=== PATIENT | female | born 1950 | race Caucasian/White ===

== ENCOUNTER 2023-01-29 11:00 | Outpatient (RCR) | payer MEDICARE, OTHER, SELFPAY | END 2023-05-29 23:59 | disposition home or self-care (01) | PROVIDERS: PCP Family Medicine; Visit Provider Family Medicine | DX: R35.0 Frequency of micturition (principal); N81.4 Uterovaginal prolapse, unspecified; Z51.89 Encounter for other specified aftercare | CPT/HCPCS: 97110; 97112; 97140; 97162 ==

== ENCOUNTER 2023-10-21 23:00 | Emergency (ER) | payer MEDICARE, OTHER, SELFPAY ==
[2023-10-21 23:09] VITALS: BP 183/104; PULSE 69; RESP 20; O2SAT 94; BMI 39.0
[2023-10-21 23:21] VITALS: TEMP 36.4
--- NOTE | 2023-10-22 00:16 | ED.GENADULT ---
HPI - General Adult General Chief complaint: Hypertension Stated complaint: Irregular heart beat Time Seen by Provider: 10/22/23 00:00 Source: patient Mode of arrival: ambulatory Limitations: no limitations History of Present Illness HPI narrative: 73-year-old female presents the emergency department for evaluation of elevated blood pressure. She reports that her blood pressure was elevated at her physical just a few weeks ago. Her provider told her to check her blood pressure 3 times daily, record these have report back for a blood pressure recheck. She received a phone call requesting that she come back in for that blood pressure recheck. Has not yet scheduled it. She reports that her Fitbit alerted that her heart rate was irregular tonight, the 1st time this has happened. She has not been having any stroke-like symptoms, neurological changes, chest pain, shortness of breath, dizziness or any other physical changes. She checked her blood pressure this evening and noted that it was still elevated, she is planning to travel to [place] in the morning and wanted to make sure that she was ?okay to travel?. She continues to have no physical symptoms whatsoever. She is on antihypertensive therapy with low-dose atenolol and low-dose hydrochlorothiazide. She continues to take these as prescribed. States that her blood pressure has been more elevated for the past year and that this is not a new problem. Denies prior history of coronary artery disease, stents, angiography or stress testing. No history of DVT or PE. Not anticoagulated. No history of arrhythmia, AFib or heart failure. Did not try any other interventions prior to coming to ED. Blood pressure at the time of my evaluation on the monitors is 170s over 80s. Heart rate persistently in the high 60s. Past medical history notable for hypertension, osteoarthritis, hypothyroidism, hyperlipidemia. Home medications are accurate as listed. These were reviewed with her. Nonsmoker. ROS is notable for the elevated blood pressure as stated above, otherwise denies times 12 systems. Related Data Home Medications Medication Instructions Recorded Confirmed atenolol 50 mg tablet 50 mg PO QDAY 05/10/22 10/21/23 fluticasone propionate 50 2 intranasal DAILY 05/10/22 04/13/23 mcg/actuation nasal spray,suspension hydrochlorothiazide 12.5 mg capsule 12.5 mg PO .Daily At 12:00PM 05/10/22 10/21/23 levothyroxine 125 mcg tablet 125 mcg PO .Daily At 7:00AM 05/10/22 04/13/23 lorazepam 0.5 mg tablet 0.5 mg PO .Bedtime as needed PRN 05/10/22 04/13/23 multivitamin 1 tab PO QDAY 05/10/22 04/13/23 potassium chloride 20 mEq 20 meq PO 05/10/22 04/13/23 tablet,extended release(part/cryst) simvastatin 40 mg tablet 40 mg PO QDAY 05/10/22 10/21/23 hydrochlorothiazide 12.5 mg tablet 12.5 mg PO DAILY 10/21/23 10/21/23 meloxicam 7.5 mg tablet 7.5 mg PO BID 10/21/23 10/21/23 omeprazole 20 mg capsule,delayed 20 mg PO DAILY 10/21/23 10/21/23 release oxybutynin chloride 10 mg 10 mg PO DAILY 10/21/23 10/21/23 tablet,extended release 24 hr Allergies Allergy/AdvReac Type Severity Reaction Status Date / Time naproxen Allergy Hives Verified 04/13/23 13:50 morphine AdvReac Vomiting Verified 04/13/23 13:50 PFSH PFSH Surgical History 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) ?Z96.651 - Presence of right artificial knee joint (ICD-10) Social History Smoking Status: Never smoker Exam Const: Vital Signs, click to edit/add: Vital Signs - 24 hr 10/21/23 23:09 10/21/23 23:21 Temperature 97.6 F Pulse Rate [Pulse Oximeter] 69 Respiratory Rate 20 Blood Pressure [Ri ght Upper Arm] 183/104 H Pulse Oximetry 94 Oxygen Delivery Me thod Room Air Documenting provider has reviewed patient's vital signs: yes Common normals: no apparent distress and alert General appearance: cooperative, comfortable and well kempt Orientation/consciousness: Yes awake HENMT: Common normals: normocephalic, moist oral mucous membranes and oropharynx normal Head and scalp: normocephalic Eye: Common normals: conjunctivae normal General eye: normal appearance of both eyes Conjunctiva: conjunctiva(e) normal Neck & C-Spine: General: normal visual inspection Resp: Common normals: normal respiratory effort, no use of accessory muscles and clear to auscultation bilaterally Effort & inspection: able to speak in complete sentences Auscultation: clear to auscultation bilaterally Cardio: Common normals: regular rate, regular rhythm, S1 normal heart sound, S2 normal heart sound and no murmurs Rate: regular rate Rhythm: regular rhythm Heart sounds: S1 normal and S2 normal GI: Common normals: Normal to inspection, nondistended, normoactive bowel sounds present, soft to palpation and no hepatosplenomegaly Palpation: soft and no hepatosplenomegaly Extremity: Other: Trace appearing bilateral dependent edema, equal Neuro: Common normals: moves all extremities and no focal motor deficits Sensorium/orientation: awake and alert Speech: speech normal Psych: Appearance: well kempt Attitude: engaged Attention/concentration: attention grossly intact Memory/cognition: memory grossly intact Insight: insight good Judgement: judgment good Skin: Common normals: no rashes or lesions noted General skin exam: no rashes or lesions noted Course Course ED Course: 73-year-old female with history of hypertension, blood pressure known to be suboptimally controlled over the last several months. Blood pressure elevated at home today with no symptoms of acute coronary syndrome, pulmonary embolism, heart failure, arrhythmia, trauma or other emergency. Pressure has improved here in the emergency department to reasonable levels without treatment. Would like to double check troponin, EKG, basic labs to ensure that increasing her medications is safe to do. This will take about 60-90 minutes, anticipate that she will be able to discharge home with the indicated plan of increasing her atenolol to 100 mg daily and her hydrochlorothiazide to 25 mg daily and following up with her primary care provider next week for recheck of her blood pressure medications in conversation regarding new prescriptions if this is appropriate. May also be a good candidate to switch to an Jose or Arb. May need to lower her meloxicam if the thought is that this could be NSAID induced. Reevaluation(s) Time of Reevaluation #1: 01:05 Reevaluation #1: Labs reviewed. No signs of arrhythmia on monitors. Previously discussed plan at initial interview documented. Patient will discharge home with plan to increase atenolol and hydrochlorothiazide as recommended. Vital Signs Vital signs: Initial Vital Signs Temperature Source Temporal Artery Scan 10/21/23 23:09 Pulse Rate 69 10/21/23 23:09 Respiratory Rate 20 10/21/23 23:09 Blood Pressure 183/104 H 10/21/23 23:09 Blood Pressure Mean 130 H 10/21/23 23:09 Blood Pressure Position Supine 10/21/23 23:09 Pulse Oximetry 94 10/21/23 23:09 Oxygen Delivery Method Room Air 10/21/23 23:09 Vital Signs Pulse Rate 69 10/21/23 23:09 Respiratory Rate 20 10/21/23 23:09 Blood Pressure 183/104 H 10/21/23 23:09 Pulse Oximetry 94 10/21/23 23:09 Oxygen Delivery Method Room Air 10/21/23 23:09 Temperature 97.6 F 10/21/23 23:21 Pulse Rate 69 10/21/23 23:09 Respiratory Rate 20 10/21/23 23:09 Blood Pressure 183/104 H 10/21/23 23:09 Pulse Oximetry 94 10/21/23 23:09 Oxygen Delivery Method Room Air 10/21/23 23:09 Medical Decision Making Lab Data Lab results reviewed: Yes I reviewed the patient's lab results Lab results narrative: Normal, as expected. Labs: Lab Results 10/22/23 Range/Units 00:34 WBC 8.27 (4.50-11.00) K/uL RBC 4.99 (4.00-5.20) m/uL Hgb 15.0 (12.0-16.0) gm/dL Hct 44.9 (33.0-51.0) % MCV 90 (80-100) fL MCH 30 (26-34) pg MCHC 33 (32-36) gm/dL RDW Coeff of Harmeet 12.8 (11.5-15.5) % Plt Count 163 (140-440) K/uL Neut % (Auto) 58.5 (42.0-72.0) % Lymph % (Auto) 32.2 (20-44) % Taney % (Auto) 8.8 (0.0-11.0) % Eos % (Auto) 0.0 (0.0-7.0) % Baso % (Auto) 0.4 (0.0-3.0) % Neut # (Auto) 4.84 (1.7-7.0) K/uL Lymph # (Auto) 2.66 (0.90-2.90) K/uL Taney # (Auto) 0.70 (0.00-0.90) K/UL Eos # (Auto) 0.00 (0.00-0.50) K/uL Baso # (Auto) 0.03 (0.00-0.30) K/uL Abs Immat Gran (auto) 0.01 (0.00-0.30) K/uL Imm/Tot Granulo (auto) 0.1 % Sodium 141 (135-149) mmol/L Potassium 3.8 (3.6-5.1) mmol/L Chloride 106 (96-114) mmol/L Carbon Dioxide 29 (20-32) mmol/L Anion Gap 6 L (7-15) mEq/L BUN 31 H (7-30) mg/dL Creatinine 1.1 (0.5-1.5) mg/dL Estimated Creat Clear 35.49 Estimated GFR 53 ml/min Glucose 99 (60-115) mg/dL Calcium 10.4 (8.4-10.6) mg/dL POC Troponin I 0.01 (0.01-0.04) ng/ml ECG Data Attestation: I personally reviewed and interpreted this ECG as follows: Interpretation: Normal sinus rhythm, rate 68. Normal intervals and axis. No significant ST or T-wave abnormalities. Normal EKG. Discharge Plan Discharge Clinical Impression: Hypertension Patient Disposition: Home w/ Parent or Adult Condition: Improved Instructions: Hypertension (ED) Additional Instructions: As we discussed, there are no signs of abnormal heart rhythm or heart attack here in the emergency department. This is great news. Based on your home monitoring, your recent elevated blood pressure at your physical and your values here today, your high blood pressure is not under appropriate control at this time. Treating high blood pressure is a moving target and often requires a change in therapy over time. Since we have proven that your blood pressure is persistently elevated, I would recommend that you double up on both your atenolol and your hydrochlorothiazide until a follow-up appointment to have your blood pressure rechecked in a week or so. Make sure that you let the nurse know that you have increased those medications, as your provider may need to send higher doses to your pharmacy to reflect the change. They may choose instead to prescribe a different blood pressure medication to add to your regimen. Your provider will know what is best for you in the long run. They may also need to consider stopping your meloxicam or changing to a different medication to treat arthritis. Continue checking your blood pressure at least a couple of times per day. As we discussed, there is not an emergent level with high blood pressure unless you are having physical symptoms like stroke-like symptoms, vision changes, chest pain, severe shortness of breath or other emergent type symptoms. It will take a few days for your blood pressure to improve with the new doses of medications. It is safe for you to travel. You should seek emergency room care if you have any of the worrisome symptoms listed above. Activity Level: No Restrictions Discharge Diet: Regular Prescriptions: No Action atenolol 50 mg tablet 50 mg PO QDAY fluticasone propionate 50 mcg/actuation spray,suspension 2 intranasal DAILY hydrochlorothiazide 12.5 mg capsule 12.5 mg PO .Daily At 12:00PM levothyroxine 125 mcg tablet 125 mcg PO .Daily At 7:00AM lorazepam 0.5 mg tablet 0.5 mg PO .Bedtime as needed PRN potassium chloride 20 mEq tablet,ER particles/crystals 20 meq PO simvastatin 40 mg tablet 40 mg PO QDAY multivitamin Tablet 1 tab PO QDAY oxybutynin chloride 10 mg tablet extended release 24hr 10 mg PO DAILY meloxicam 7.5 mg tablet 7.5 mg PO BID omeprazole 20 mg capsule,delayed release(DR/EC) 20 mg PO DAILY hydrochlorothiazide 12.5 mg tablet 12.5 mg PO DAILY Follow Up/Referrals: Joslyn Turcios MD [Primary Care Provider] - Stand Alone Forms: [employer] Info Instructions
[2023-10-22 00:44] LABS: Basophils Absolute Auto 0.03 K/uL (0.00-0.30); Basophils Percent Auto 0.4 % (0.0-3.0); Hematocrit 44.9 % (33.0-51.0); Immature Granulocytes Abs Auto 0.01 K/uL (0.00-0.30); Immature Granulocytes Pct Auto 0.1 %; Lymphocytes Absolute Auto 2.66 K/uL (0.90-2.90); Lymphocytes Percent Auto 32.2 % (20-44); Mean Corpuscular HGB Conc 33 gm/dL (32-36); Mean Corpuscular Hemoglobin 30 pg (26-34); Mean Corpuscular Volume 90 fL (80-100); Monocytes Percent Auto 8.8 % (0.0-11.0); Neutrophils Absolute Auto 4.84 K/uL (1.7-7.0); Neutrophils Percent Auto 58.5 % (42.0-72.0); Platelet Count* 163 K/uL (140-440); RDW Coefficient of Variation % 12.8 % (11.5-15.5); Red Blood Count 4.99 m/uL (4.00-5.20); White Blood Count* 8.27 K/uL (4.50-11.00)
[2023-10-22 00:51] LABS: Slide Review Reflex No; Troponin, Point-of-Care* 0.01 ng/ml (0.01-0.04)
[2023-10-22 00:56] LABS: Chloride* 106 mmol/L (96-114)
[2023-10-22 00:57] LABS: Potassium* 3.8 mmol/L (3.6-5.1); Sodium* 141 mmol/L (135-149)
[2023-10-22 00:59] LABS: Anion Gap 6 mEq/L (7-15); Carbon Dioxide* 29 mmol/L (20-32); Creatinine* 1.1 mg/dL (0.5-1.5); Est. Creatinine Clearance* 35.49; Estimated Glomerular Filt Rate 53 ml/min
[2023-10-22 01:00] LABS: Blood Urea Nitrogen* 31 mg/dL (7-30); Calcium* 10.4 mg/dL (8.4-10.6); Glucose* 99 mg/dL (60-115)
== END 2023-10-22 01:11 | disposition home or self-care (01) ==
LOC: ED 10-22 00:36
PROVIDERS: Emergency Provider Family Medicine; PCP Family Medicine
DX: I10 Essential (primary) hypertension (principal)
CPT/HCPCS: 36415; 80048; 84484; 85025; 93005; 99284

== ENCOUNTER 2023-12-12 12:24 | Inpatient (IN) | payer MEDICARE, OTHER, SELFPAY ==
[2023-12-12] VITALS (42 sets, daily range): BP systolic 100–164; BP diastolic 57–135; PULSE 51–133; RESP 13–22; TEMP 35.8–36.4; O2SAT 89–100; BMI 38.2; BMI 37.4
--- NOTE | 2023-12-12 12:58 | CRLHL7_ITS ---
For Patients: As a result of the Century Cures Act, medical imaging exams and procedure reports are released immediately into your electronic medical record. You may view this report before your referring provider. If you have questions, please contact your health care provider. Indication: Atrial fibrillation Comparison: None available. Technique: Single AP view chest Findings: There is hyperinflation and chronic interstitial change. There are mildly increased interstitial markings likely representing pulmonary vascular congestion. The cardiomediastinal silhouette is within normal limits. The bony thorax is grossly intact. Impression: Mild interstitial prominence likely representing minimal pulmonary vascular congestion. Dictated by Chris Motta MD @ 12/12/2023 2:11:46 PM (Electronically Signed)
--- NOTE | 2023-12-12 13:17 | ED_ITS ---
HPI - General Adult General Date Seen: 12/12/23 <Alice Mackenzie MD - Last Filed: 12/12/23 16:40> Chief complaint: Arrhythmia/Palpitations <Alice Mackenzie MD - Last Filed: 12/12/23 16:40> Stated complaint: Afib <Alice Mackenzie MD - Last Filed: 12/12/23 16:40> Time Seen by Provider: 12/12/23 12:46 <Alice Mackenzie MD - Last Filed: 12/12/23 16:40> Source: patient, RN notes reviewed and old records reviewed <Alice Mackenzie MD - Last Filed: 12/12/23 16:40> Mode of arrival: ambulatory <Alice Mackenzie MD - Last Filed: 12/12/23 16:40> Limitations: no limitations <Alice Mackenzie MD - Last Filed: 12/12/23 16:40> History of Present Illness HPI narrative: Patient is a 73-year-old woman who had gone to clinic today for evaluation of her knee which she injured in a fall couple of days ago. She says while she was sitting at clinic she developed palpitations and a sense of fluttering in her chest, they checked an EKG and found that she was in rapid AFib. This was at about 11:00 a.m.. She does have a history of 2 prior episodes of similar palpitations which resolved spontaneously. She is otherwise asymptomatic, does not note shortness of breath, chest pain, lightheadedness, fainting or other complaints. No recent illness, vomiting, diarrhea, black or bloody stools, fevers etcetera. She is not anticoagulated. <lAice Mackenzie MD - Last Filed: 12/12/23 16:40> Related Data Home medications: Home Medications ?Medication ?Instructions ?Recorded ?Confirmed fluticasone propionate 50 2 spray intranasal DAILY 05/10/22 12/12/23 mcg/actuation nasal spray,suspension levothyroxine 125 mcg tablet 125 mcg PO DAILY@07 05/10/22 12/12/23 lorazepam 0.5 mg tablet 0.5 mg PO HS PRN 05/10/22 12/12/23 multivitamin 1 tab PO DAILY 05/10/22 12/12/23 omeprazole 20 mg capsule,delayed 20 mg PO DAILY 10/21/23 12/12/23 release oxybutynin chloride 10 mg 10 mg PO DAILY 10/21/23 12/12/23 tablet,extended release 24 hr amlodipine 2.5 mg tablet 2.5 mg PO DAILY 12/12/23 12/12/23 simvastatin 20 mg tablet 20 mg PO QPM 12/12/23 12/12/23 Previous Rx's ?Medication ?Instructions ?Recorded apixaban 5 mg tablet (Eliquis) 5 mg PO BID #60 tabs 12/13/23 colchicine 0.6 mg tablet 0.6 mg PO BID PRN #60 tabs 12/13/23 metoprolol succinate 50 mg 50 mg PO DAILY #30 tabs 12/13/23 tablet,extended release 24 hr melatonin 5 mg tablet 5 mg PO HS PRN sleep #30 tabs 12/14/23 metoprolol tartrate 25 mg tablet 12.5 mg (1/2 x 25 mg) PO DAILY PRN 12/14/23 #30 tabs <Alice Mackenzie MD - Last Filed: 12/12/23 16:40> Allergies/adverse reactions: Allergies Allergy/AdvReac Type Severity Reaction Status Date / Time naproxen Allergy Hives Verified 04/13/23 13:50 morphine AdvReac Vomiting Verified 04/13/23 13:50 <Alice Mackenzie MD - Last Filed: 12/12/23 16:40> Review of Systems Status of ROS: Reports: 10 or more systems reviewed and unremarkable except as noted in History and below <Alice Mackenzie MD - Last Filed: 12/12/23 16:40> [facility] Medical History: Medical History Depression ?F32.A - Depression, unspecified (ICD-10) Pseudogout ?M11.20 - Other chondrocalcinosis, unspecified site (ICD-10) Generalized anxiety disorder ?F41.1 - Generalized anxiety disorder (ICD-10) History of breast cancer ?Z85.3 - Personal history of malignant neoplasm of breast (ICD-10) Hyperlipidemia ?E78.5 - Hyperlipidemia, unspecified (ICD-10) Hypothyroidism ?E03.9 - Hypothyroidism, unspecified (ICD-10) <Alice Mackenzie MD - Last Filed: 12/12/23 16:40> Surgical History: Surgical History Status post bilateral mastectomy ?Z90.13 - Acquired absence of bilateral breasts and nipples (ICD-10) 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) ?Z96.651 - Presence of right artificial knee joint (ICD-10) <Alice Mackenzie MD - Last Filed: 12/12/23 16:40> Social History: Social History What is your current living situation?: I presently have a place to live Problems where you live: no known problems Problems where you live details: N/A In the past 12 months, utilities in danger of being shut off: no In past 12 months, lack of transportation kept you from medical appts, meetings, work, or getting things needed for daily living: no In the past 12 mos, have been you worried that your food would run out before you had money to buy more?: never true In the past 12 mos, the food you bought just didn't last and you didn't have money to buy more?: never true Highest level of school completed/degree received: some college, no degree Smoking Status: Never smoker Second hand tobacco smoke exposure: No How often do you have a drink containing alcohol: monthly or less Alcohol type: wine Alcohol type details: pt states 2 glasses of wine a year How many standard drinks containing alcohol do you have on a typical day: 1 or 2 How often do you have six or more drinks on one occasion: Less than monthly AUDIT-C Alcohol total score: 2 Non-prescribed substance use: denies use Caffeine: Yes (couple cans Mtn Dew daily) How often does anyone, including family, friends and others, physically hurt you : never How often does anyone, including family, friends and others, insult or talk down to you: never How often does anyone, including family, friends and others, threaten you with harm: never How often does anyone, including family, friends and others, scream or curse at you: never Gender Identity: female service: No <Alice Mackenzie MD - Last Filed: 12/12/23 16:40> Exam Narrative: Exam Narrative: Vital signs as noted above. In general, an alert, well-appearing patient. Head: Normocephalic, atraumatic. Eyes: Pupils are equal reactive. Extraocular movements are full. Conjunctivae are normal. ENT: Mucous membranes are moist. Throat is normal. Neck: Supple without lymphadenopathy. Heart: Tachycardic, regular. No significant murmur. Lungs: Clear bilaterally. No increased work of breathing, crackles or wheezes. Abdomen: Soft and nontender. No organomegaly. Extremities: Well perfused. No edema. No calf tenderness. Pulses intact. Neurologic: Patient is alert and oriented to person and place. Speech is fluent. Face is symmetric. Moves all extremities equally. Affect: Normal. Skin: Warm and dry. Well perfused. <Alice Mackenzie MD - Last Filed: 12/12/23 16:40> Const: Vital Signs, click to edit/add: Vital Signs - 24 hr 12/12/23 12:39 12/12/23 12:40 12/12/23 12:45 Temperature Pulse Rate 133 H 118 H 106 H Pulse Rate [Pulse Oximeter] Respiratory Rate Blood Pressure 164/110 H Blood Pressure [Ri ght Upper Arm] Pulse Oximetry 94 96 97 Oxygen Delivery Me thod 12/12/23 12:47 12/12/23 12:57 12/12/23 12:58 Temperature 97.6 F Pulse Rate Pulse Rate [Pulse Oximeter] 126 H Respiratory Rate 18 Blood Pressure Blood Pressure [Ri ght Upper Arm] 164/110 H Pulse Oximetry 95 94 92 Oxygen Delivery Me thod Room Air Room Air 12/12/23 13:06 12/12/23 13:13 12/12/23 13:15 Temperature Pulse Rate 116 H 108 H 120 H Pulse Rate [Pulse Oximeter] Respiratory Rate Blood Pressure 162/135 H Blood Pressure [Ri ght Upper Arm] Pulse Oximetry 95 96 95 Oxygen Delivery Me thod 12/12/23 13:30 12/12/23 13:45 12/12/23 14:15 Temperature Pulse Rate 116 H 107 H 120 H Pulse Rate [Pulse Oximeter] Respiratory Rate Blood Pressure Blood Pressure [Ri ght Upper Arm] Pulse Oximetry 96 95 97 Oxygen Delivery Me thod 12/12/23 14:30 12/12/23 14:33 12/12/23 14:37 Temperature Pulse Rate 121 H 124 H 110 H Pulse Rate [Pulse Oximeter] Respiratory Rate 19 18 22 Blood Pressure 153/102 H 100/77 Blood Pressure [Ri ght Upper Arm] Pulse Oximetry 95 95 91 Oxygen Delivery Me thod 12/12/23 14:42 12/12/23 14:45 12/12/23 15:00 Temperature Pulse Rate 89 116 H 121 H Pulse Rate [Pulse Oximeter] Respiratory Rate 19 13 Blood Pressure 111/80 Blood Pressure [Ri ght Upper Arm] Pulse Oximetry 94 96 94 Oxygen Delivery Me thod 12/12/23 15:02 12/12/23 15:15 12/12/23 15:22 Temperature Pulse Rate 106 H 103 H 107 H Pulse Rate [Pulse Oximeter] Respiratory Rate Blood Pressure 140/113 H 125/88 Blood Pressure [Ri ght Upper Arm] Pulse Oximetry 94 96 94 Oxygen Delivery Me thod 12/12/23 15:23 12/12/23 15:30 12/12/23 15:42 Temperature Pulse Rate 97 96 117 H Pulse Rate [Pulse Oximeter] Respiratory Rate Blood Pressure 135/94 H Blood Pressure [Ri ght Upper Arm] Pulse Oximetry 93 94 92 Oxygen Delivery Me thod 12/12/23 15:45 12/12/23 16:00 12/12/23 16:02 Temperature Pulse Rate 114 H 105 H 120 H Pulse Rate [Pulse Oximeter] Respiratory Rate Blood Pressure 147/115 H Blood Pressure [Ri ght Upper Arm] Pulse Oximetry 89 97 95 Oxygen Delivery Me thod 12/12/23 16:15 12/12/23 16:22 12/12/23 16:30 Temperature Pulse Rate 118 H 103 H 102 H Pulse Rate [Pulse Oximeter] Respiratory Rate Blood Pressure 143/95 H 150/86 H Blood Pressure [Ri ght Upper Arm] Pulse Oximetry 95 95 95 Oxygen Delivery Me thod 12/12/23 16:31 12/12/23 16:32 Temperature Pulse Rate 111 H 107 H Pulse Rate [Pulse Oximeter] Respiratory Rate Blood Pressure 132/107 H Blood Pressure [Ri ght Upper Arm] Pulse Oximetry 95 96 Oxygen Delivery Me thod <Alice Mackenzie MD - Last Filed: 12/12/23 16:40> Vital Signs, click to edit/add: Vital Signs - 24 hr 12/12/23 12:39 12/12/23 12:40 12/12/23 12:45 Temperature Pulse Rate 133 H 118 H 106 H Pulse Rate [Pulse Oximeter] Respiratory Rate Blood Pressure 164/110 H Blood Pressure [Ri ght Upper Arm] Pulse Oximetry 94 96 97 Oxygen Delivery Me thod 12/12/23 12:47 12/12/23 12:57 12/12/23 12:58 Temperature 97.6 F Pulse Rate Pulse Rate [Pulse Oximeter] 126 H Respiratory Rate 18 Blood Pressure Blood Pressure [Ri ght Upper Arm] 164/110 H Pulse Oximetry 95 94 92 Oxygen Delivery Me thod Room Air Room Air 12/12/23 13:06 12/12/23 13:13 12/12/23 13:15 Temperature Pulse Rate 116 H 108 H 120 H Pulse Rate [Pulse Oximeter] Respiratory Rate Blood Pressure 162/135 H Blood Pressure [Ri ght Upper Arm] Pulse Oximetry 95 96 95 Oxygen Delivery Me thod 12/12/23 13:30 12/12/23 13:45 12/12/23 14:15 Temperature Pulse Rate 116 H 107 H 120 H Pulse Rate [Pulse Oximeter] Respiratory Rate Blood Pressure Blood Pressure [Ri ght Upper Arm] Pulse Oximetry 96 95 97 Oxygen Delivery Me thod 12/12/23 14:30 12/12/23 14:33 12/12/23 14:37 Temperature Pulse Rate 121 H 124 H 110 H Pulse Rate [Pulse Oximeter] Respiratory Rate 19 18 22 Blood Pressure 153/102 H 100/77 Blood Pressure [Ri ght Upper Arm] Pulse Oximetry 95 95 91 Oxygen Delivery Me thod 12/12/23 14:42 12/12/23 14:45 12/12/23 15:00 Temperature Pulse Rate 89 116 H 121 H Pulse Rate [Pulse Oximeter] Respiratory Rate 19 13 Blood Pressure 111/80 Blood Pressure [Ri ght Upper Arm] Pulse Oximetry 94 96 94 Oxygen Delivery Me thod 12/12/23 15:02 12/12/23 15:15 12/12/23 15:22 Temperature Pulse Rate 106 H 103 H 107 H Pulse Rate [Pulse Oximeter] Respiratory Rate Blood Pressure 140/113 H 125/88 Blood Pressure [Ri ght Upper Arm] Pulse Oximetry 94 96 94 Oxygen Delivery Me thod 12/12/23 15:23 12/12/23 15:30 12/12/23 15:42 Temperature Pulse Rate 97 96 117 H Pulse Rate [Pulse Oximeter] Respiratory Rate Blood Pressure 135/94 H Blood Pressure [Ri ght Upper Arm] Pulse Oximetry 93 94 92 Oxygen Delivery Me thod 12/12/23 15:45 12/12/23 16:00 12/12/23 16:02 Temperature Pulse Rate 114 H 105 H 120 H Pulse Rate [Pulse Oximeter] Respiratory Rate Blood Pressure 147/115 H Blood Pressure [Ri ght Upper Arm] Pulse Oximetry 89 97 95 Oxygen Delivery Me thod 12/12/23 16:15 12/12/23 16:22 12/12/23 16:30 Temperature Pulse Rate 118 H 103 H 102 H Pulse Rate [Pulse Oximeter] Respiratory Rate Blood Pressure 143/95 H 150/86 H Blood Pressure [Ri ght Upper Arm] Pulse Oximetry 95 95 95 Oxygen Delivery Me thod 12/12/23 16:31 12/12/23 16:32 Temperature Pulse Rate 111 H 107 H Pulse Rate [Pulse Oximeter] Respiratory Rate Blood Pressure 132/107 H Blood Pressure [Ri ght Upper Arm] Pulse Oximetry 95 96 Oxygen Delivery Me thod <William Johnson MD - Last Filed: 12/24/23 23:10> Course Course ED Course: On arrival, patient was placed on the monitor. She had an EKG which shows atrial fibrillation, ventricular response of 127. Nonspecific ST and T changes but nothing overly suggestive of ischemia by my review. Reviewing things with her, she feels confident that this started at clinic today at 11. I think it is reasonable to recommend cardioversion, we discussed this option and she would like to proceed. For now, have ordered labs, will maintain on the monitor and plan for cardioversion. Risks and benefits of sedation and cardioversion were explained, including over-sedation, need for airway management, aspiration, failure to convert, malignant arrhythmias. Procedure note: Sedation provided by Dr. Johnson, please see his note for details. She was maintained on cardiac, pulse oximetry and end-tidal carbon dioxide monitoring. She was given propofol with adequate sedation, tolerated sedation well. She was cardioverted twice at 200 joules, she briefly went into a sinus rhythm for a few beats and then immediately back into a rapid atrial fibrillation. She awakened without difficulty. Discussed with her we are not able to successfully cardiovert her. Recommended rate control, did give her 10 mg of diltiazem with some improvement in her rate but not consistent, I think she will need to be admitted for rate control. Began discussion of anticoagulation as well. Dilt drip started. <Alice Mackenzie MD - Last Filed: 12/12/23 16:40> Vital Signs Vital signs: Initial Vital Signs Pulse Rate 133 H 12/12/23 12:39 Blood Pressure 164/110 H 12/12/23 12:39 Blood Pressure Mean 128 H 12/12/23 12:39 Pulse Oximetry 94 12/12/23 12:39 Vital Signs Pulse Rate 133 H 12/12/23 12:39 Blood Pressure 164/110 H 12/12/23 12:39 Pulse Oximetry 94 12/12/23 12:39 Temperature 97.9 F 12/14/23 07:42 Pulse Rate 70 12/14/23 07:42 Respiratory Rate 16 12/14/23 07:42 Blood Pressure 151/75 H 12/14/23 07:42 Pulse Oximetry 95 12/14/23 07:42 Oxygen Delivery Method Room Air 12/14/23 07:42 <Alice Mackenzie MD - Last Filed: 12/12/23 16:40> Initial Vital Signs Pulse Rate 133 H 12/12/23 12:39 Blood Pressure 164/110 H 12/12/23 12:39 Blood Pressure Mean 128 H 12/12/23 12:39 Pulse Oximetry 94 12/12/23 12:39 Vital Signs Pulse Rate 133 H 12/12/23 12:39 Blood Pressure 164/110 H 12/12/23 12:39 Pulse Oximetry 94 12/12/23 12:39 Temperature 97.9 F 12/14/23 07:42 Pulse Rate 70 12/14/23 07:42 Respiratory Rate 16 12/14/23 07:42 Blood Pressure 151/75 H 12/14/23 07:42 Pulse Oximetry 95 12/14/23 07:42 Oxygen Delivery Method Room Air 12/14/23 07:42 <William Johnson MD - Last Filed: 12/24/23 23:10> Medications Administered Medications: Discontinued Medications Generic Name Dose Route Start Last Admin Trade Name Freq PRN Reason Stop Dose Admin Acetaminophen 1,000 mg 12/13/23 09:00 12/13/23 21:07 Acetaminophen 325 Mg Tablet PO 1,000 mg TID PATT Administration Acetaminophen 1,000 mg 12/14/23 09:00 12/14/23 08:59 Acetaminophen 500 Mg Tablet PO 1,000 mg TID PATT Administration Apixaban 5 mg 12/12/23 21:00 12/14/23 08:59 Apixaban 5 Mg Tablet PO 5 mg BID PATT Administration Atenolol 100 mg 12/12/23 20:00 12/12/23 21:19 Atenolol 50 Mg Tablet PO Not Given HS PATT Colchicine 0.6 mg 12/13/23 21:00 12/14/23 09:05 Colchicine 0.6 Mg Capsule PO 0.6 mg BID PATT Administration Diltiazem HCl 10 mg 12/12/23 14:54 12/12/23 15:09 Diltiazem 5 Mg/Ml Inj IVP 12/12/23 14:55 10 mg ONCE ONE Administration Docusate Sodium 100 mg 12/12/23 21:00 12/14/23 09:00 Docusate Sodium 100 Mg Capsule PO 100 mg BID PATT Administration Sodium Chloride 500 mls @ 500 mls/hr 12/12/23 12:57 12/12/23 17:31 0.9 % Sodium Chloride 500 Ml IV 12/12/23 13:56 Infused .Q1H ONE Infusion Magnesium Sulfate/Dextrose 1 gm in 100 mls @ 100 mls/hr 12/12/23 14:12 12/12/23 15:50 Magnesium Sulf 1 G/100 Ml-D5w IVPB 12/12/23 15:11 Infused ONCE ONE Infusion Diltiazem HCl 125 mg/ Sodium 125 mls @ 10 mls/hr 12/12/23 16:06 12/13/23 17:23 Chloride IVPB Infused .TITRATE PATT Infusion Protocol Levothyroxine Sodium 125 mcg 12/13/23 07:00 12/14/23 05:34 Levothyroxine 125 Mcg Tablet PO 125 mcg DAILY@07 PATT Administration Lorazepam 0.5 mg 12/12/23 18:02 12/13/23 21:06 Lorazepam 0.5 Mg Tablet PO 0.5 mg HS PRN Administration Melatonin 3 - 6 mg 12/12/23 18:09 12/13/23 21:06 Melatonin 3 Mg Tablet PO 6 mg HS PRN Administration Metoprolol Succinate 50 mg 12/13/23 09:00 12/14/23 08:59 Metoprolol Succinate (Xl) 50 Mg Tab PO 50 mg DAILY PATT Administration Metoprolol Tartrate 2.5 mg 12/14/23 05:48 12/14/23 06:29 Metoprolol Tartrate 1 Mg/Ml Inj IVP 12/14/23 05:49 2.5 mg ONCE ONE Administration Omeprazole 20 mg 12/13/23 07:30 12/14/23 05:36 Omeprazole [address] PO 20 mg DAILY@0730 PATT Administration Oxybutynin Chloride 10 mg 12/13/23 09:00 12/14/23 08:59 Oxybutynin Chloride 5 Mg Tab.Er.24 PO 10 mg DAILY PATT Administration Propofol 200 mg 12/12/23 12:57 12/12/23 14:31 Propofol 10 Mg/Ml Inj IVP 12/12/23 12:58 60 mg ONCE ONE Administration Simvastatin 20 mg 12/13/23 18:00 12/13/23 17:30 Simvastatin 20 Mg Tablet PO 20 mg QPM PATT Administration Sodium Chloride 5 ml 12/12/23 18:09 12/14/23 06:27 Sodium Chloride 0.9 % (Flush) 10 Ml Syringe IVF 5 ml .FLUSH PRN Administration Sodium Chloride 5 ml 12/12/23 21:00 12/14/23 09:01 Sodium Chloride 0.9 % (Flush) 10 Ml Syringe IVF Not Given BID PATT Sodium Chloride 1 spray 12/12/23 20:42 12/12/23 23:49 Sodium Chloride Nasal [place] NOSTRIL-B 1 spray Q4H PRN Administration Tramadol HCl 50 mg 12/12/23 21:00 12/12/23 21:17 Tramadol Hcl 50 Mg Tablet PO 50 mg HS PATT Administration <Alice Mackenzie MD - Last Filed: 12/12/23 16:40> Discontinued Medications Generic Name Dose Route Start Last Admin Trade Name Freq PRN Reason Stop Dose Admin Acetaminophen 1,000 mg 12/13/23 09:00 12/13/23 21:07 Acetaminophen 325 Mg Tablet PO 1,000 mg TID PATT Administration Acetaminophen 1,000 mg 12/14/23 09:00 12/14/23 08:59 Acetaminophen 500 Mg Tablet PO 1,000 mg TID PATT Administration Apixaban 5 mg 12/12/23 21:00 12/14/23 08:59 Apixaban 5 Mg Tablet PO 5 mg BID PATT Administration Atenolol 100 mg 12/12/23 20:00 12/12/23 21:19 Atenolol 50 Mg Tablet PO Not Given HS PATT Colchicine 0.6 mg 12/13/23 21:00 12/14/23 09:05 Colchicine 0.6 Mg Capsule PO 0.6 mg BID PATT Administration Diltiazem HCl 10 mg 12/12/23 14:54 12/12/23 15:09 Diltiazem 5 Mg/Ml Inj IVP 12/12/23 14:55 10 mg ONCE ONE Administration Docusate Sodium 100 mg 12/12/23 21:00 12/14/23 09:00 Docusate Sodium 100 Mg Capsule PO 100 mg BID PATT Administration Sodium Chloride 500 mls @ 500 mls/hr 12/12/23 12:57 12/12/23 17:31 0.9 % Sodium Chloride 500 Ml IV 12/12/23 13:56 Infused .Q1H ONE Infusion Magnesium Sulfate/Dextrose 1 gm in 100 mls @ 100 mls/hr 12/12/23 14:12 12/12/23 15:50 Magnesium Sulf 1 G/100 Ml-D5w IVPB 12/12/23 15:11 Infused ONCE ONE Infusion Diltiazem HCl 125 mg/ Sodium 125 mls @ 10 mls/hr 12/12/23 16:06 12/13/23 17:23 Chloride IVPB Infused .TITRATE PATT Infusion Protocol Levothyroxine Sodium 125 mcg 12/13/23 07:00 12/14/23 05:34 Levothyroxine 125 Mcg Tablet PO 125 mcg DAILY@07 PATT Administration Lorazepam 0.5 mg 12/12/23 18:02 12/13/23 21:06 Lorazepam 0.5 Mg Tablet PO 0.5 mg HS PRN Administration Melatonin 3 - 6 mg 12/12/23 18:09 12/13/23 21:06 Melatonin 3 Mg Tablet PO 6 mg HS PRN Administration Metoprolol Succinate 50 mg 12/13/23 09:00 12/14/23 08:59 Metoprolol Succinate (Xl) 50 Mg Tab PO 50 mg DAILY PATT Administration Metoprolol Tartrate 2.5 mg 12/14/23 05:48 12/14/23 06:29 Metoprolol Tartrate 1 Mg/Ml Inj IVP 12/14/23 05:49 2.5 mg ONCE ONE Administration Omeprazole 20 mg 12/13/23 07:30 12/14/23 05:36 Omeprazole [address] PO 20 mg DAILY@0730 PATT Administration Oxybutynin Chloride 10 mg 12/13/23 09:00 12/14/23 08:59 Oxybutynin Chloride 5 Mg Tab.Er.24 PO 10 mg DAILY PATT Administration Propofol 200 mg 12/12/23 12:57 12/12/23 14:31 Propofol 10 Mg/Ml Inj IVP 12/12/23 12:58 60 mg ONCE ONE Administration Simvastatin 20 mg 12/13/23 18:00 12/13/23 17:30 Simvastatin 20 Mg Tablet PO 20 mg QPM PATT Administration Sodium Chloride 5 ml 12/12/23 18:09 12/14/23 06:27 Sodium Chloride 0.9 % (Flush) 10 Ml Syringe IVF 5 ml .FLUSH PRN Administration Sodium Chloride 5 ml 12/12/23 21:00 12/14/23 09:01 Sodium Chloride 0.9 % (Flush) 10 Ml Syringe IVF Not Given BID PATT Sodium Chloride 1 spray 12/12/23 20:42 12/12/23 23:49 Sodium Chloride Nasal [place] NOSTRIL-B 1 spray Q4H PRN Administration Tramadol HCl 50 mg 12/12/23 21:00 12/12/23 21:17 Tramadol Hcl 50 Mg Tablet PO 50 mg HS PATT Administration <William Johnson MD - Last Filed: 12/24/23 23:10> Medical Decision Making Lab Data Labs: Lab Results 12/12/23 12/12/23 12/13/23 Range/Units 12:58 13:27 06:00 WBC 9.05 9.02 (4.50-11.00) K/uL RBC 5.45 H 5.22 H (4.00-5.20) m/uL Hgb 16.1 H 15.8 (12.0-16.0) gm/dL Hct 48.3 47.4 (33.0-51.0) % MCV 89 91 (80-100) fL MCH 30 30 (26-34) pg MCHC 33 33 (32-36) gm/dL RDW Coeff of [place] 12.5 (11.5-15.5) % Plt Count 163 204 (140-440) K/uL Neut % (Auto) 59.6 (42.0-72.0) % Lymph % (Auto) 29.9 (20-44) % [place] % (Auto) 7.8 (0.0-11.0) % Eos % (Auto) 2.3 (0.0-7.0) % Baso % (Auto) 0.3 (0.0-3.0) % Neut # (Auto) 5.38 (1.7-7.0) K/uL Lymph # (Auto) 2.71 (0.90-2.90) K/uL [place] # (Auto) 0.70 (0.00-0.90) K/UL Eos # (Auto) 0.21 (0.00-0.50) K/uL Baso # (Auto) 0.03 (0.00-0.30) K/uL Abs Immat Gran (auto) 0.01 (0.00-0.30) K/uL Imm/Tot Granulo (auto) 0.1 % Sodium 143 143 (135-149) mmol/L Potassium 3.6 4.1 (3.6-5.1) mmol/L Chloride 108 104 (96-114) mmol/L Carbon Dioxide 29 33 H (20-32) mmol/L Anion Gap 6 L 6 L (7-15) mEq/L BUN 25 31 H (7-30) mg/dL Creatinine 0.9 1.1 (0.5-1.5) mg/dL Estimated Creat Clear 39.04 35.49 Estimated GFR 67 53 ml/min Glucose 102 107 (60-115) mg/dL Calcium 10.3 10.3 (8.4-10.6) mg/dL Magnesium 1.7 (1.5-2.6) mg/dL TSH 3.060 (0.270-4.200) uIU/mL POC Troponin I 0.00 L (0.01-0.04) ng/ml <Alice Mackenzie MD - Last Filed: 12/12/23 16:40> Lab Results 12/12/23 12/12/23 12/13/23 Range/Units 12:58 13:27 06:00 WBC 9.05 9.02 (4.50-11.00) K/uL RBC 5.45 H 5.22 H (4.00-5.20) m/uL Hgb 16.1 H 15.8 (12.0-16.0) gm/dL Hct 48.3 47.4 (33.0-51.0) % MCV 89 91 (80-100) fL MCH 30 30 (26-34) pg MCHC 33 33 (32-36) gm/dL RDW Coeff of [place] 12.5 (11.5-15.5) % Plt Count 163 204 (140-440) K/uL Neut % (Auto) 59.6 (42.0-72.0) % Lymph % (Auto) 29.9 (20-44) % [place] % (Auto) 7.8 (0.0-11.0) % Eos % (Auto) 2.3 (0.0-7.0) % Baso % (Auto) 0.3 (0.0-3.0) % Neut # (Auto) 5.38 (1.7-7.0) K/uL Lymph # (Auto) 2.71 (0.90-2.90) K/uL [place] # (Auto) 0.70 (0.00-0.90) K/UL Eos # (Auto) 0.21 (0.00-0.50) K/uL Baso # (Auto) 0.03 (0.00-0.30) K/uL Abs Immat Gran (auto) 0.01 (0.00-0.30) K/uL Imm/Tot Granulo (auto) 0.1 % Sodium 143 143 (135-149) mmol/L Potassium 3.6 4.1 (3.6-5.1) mmol/L Chloride 108 104 (96-114) mmol/L Carbon Dioxide 29 33 H (20-32) mmol/L Anion Gap 6 L 6 L (7-15) mEq/L BUN 25 31 H (7-30) mg/dL Creatinine 0.9 1.1 (0.5-1.5) mg/dL Estimated Creat Clear 39.04 35.49 Estimated GFR 67 53 ml/min Glucose 102 107 (60-115) mg/dL Calcium 10.3 10.3 (8.4-10.6) mg/dL Magnesium 1.7 (1.5-2.6) mg/dL TSH 3.060 (0.270-4.200) uIU/mL POC Troponin I 0.00 L (0.01-0.04) ng/ml <William Johnson MD - Last Filed: 12/24/23 23:10> Discharge Plan Discharge Clinical Impression: Atrial fibrillation with rapid ventricular response <Alice Mackenzie MD - Last Filed: 12/12/23 16:40> Patient Disposition: Admitted As Observation <Alice Mackenzie MD - Last Filed: 12/12/23 16:40> Condition: Stable <Alice Mackenzie MD - Last Filed: 12/12/23 16:40> Activity Level: Activity as Tolerated <Alice Mackenzie MD - Last Filed: 12/12/23 16:40> Activity as Tolerated <William Johnson MD - Last Filed: 12/24/23 23:10> Discharge Diet: Regular <Alice Mackenzie MD - Last Filed: 12/12/23 16:40> Regular <William Johnson MD - Last Filed: 12/24/23 23:10> Procedures Procedural Sedation Pre procedure diagnosis: atrial fibrillation with RVR <William Johnson MD - Last Filed: 12/24/23 23:10> Written consent by: patient <William Johnson MD - Last Filed: 12/24/23 23:10> Verification/time out: correct patient, correct site, correct procedure and time out performed <William Johnson MD - Last Filed: 12/24/23 23:10> Name of person perfmorming the procedure: William Johnson <William Johnson MD - Last Filed: 12/24/23 23:10> Sedation provider same as procedural provider: No <William Johnson MD - Last Filed: 12/24/23 23:10> Indication: other (cardioversion) <William Johnson MD - Last Filed: 12/24/23 23:10> ASA Class: II <William Johnson MD - Last Filed: 12/24/23 23:10> Mallampati classification: III. soft palate and base of uvula visible <William Johnson MD - Last Filed: 12/24/23 23:10> Preparation: sleeve sewer applied, pulse oximeter, capnometry used, supplemental O2 applied, reversal agents at bedside, suction/airway equipment at bedside and IV secured <William Johnson MD - Last Filed: 12/24/23 23:10> IV Propofol dose (mg): 60 <William Johnson MD - Last Filed: 12/24/23 23:10> Patient Tolerated Procedure: well and no complications <William Johnson MD - Last Filed: 12/24/23 23:10> Complications: none <William Johnson MD - Last Filed: 12/24/23 23:10>
[2023-12-12 13:40] LABS: Basophils Absolute Auto 0.03 K/uL (0.00-0.30); Basophils Percent Auto 0.3 % (0.0-3.0); Eosinophils Absolute Auto 0.21 K/uL (0.00-0.50); Eosinophils Percent Auto 2.3 % (0.0-7.0); Hematocrit 48.3 % (33.0-51.0); Hemoglobin* 16.1 gm/dL (12.0-16.0); Immature Granulocytes Abs Auto 0.01 K/uL (0.00-0.30); Immature Granulocytes Pct Auto 0.1 %; Lymphocytes Absolute Auto 2.71 K/uL (0.90-2.90); Lymphocytes Percent Auto 29.9 % (20-44); Mean Corpuscular HGB Conc 33 gm/dL (32-36); Mean Corpuscular Hemoglobin 30 pg (26-34); Mean Corpuscular Volume 89 fL (80-100); Monocytes Percent Auto 7.8 % (0.0-11.0); Neutrophils Absolute Auto 5.38 K/uL (1.7-7.0); Neutrophils Percent Auto 59.6 % (42.0-72.0); Platelet Count* 163 K/uL (140-440); RDW Coefficient of Variation % 12.5 % (11.5-15.5); Red Blood Count 5.45 m/uL (4.00-5.20); White Blood Count* 9.05 K/uL (4.50-11.00)
[2023-12-12 13:43] LABS: Slide Review Reflex No
[2023-12-12 13:53] LABS: Chloride* 108 mmol/L (96-114); Potassium* 3.6 mmol/L (3.6-5.1); Sodium* 143 mmol/L (135-149)
[2023-12-12 13:56] LABS: Anion Gap 6 mEq/L (7-15); Carbon Dioxide* 29 mmol/L (20-32); Creatinine* 0.9 mg/dL (0.5-1.5); Est. Creatinine Clearance* 39.04; Estimated Glomerular Filt Rate 67 ml/min
[2023-12-12 13:57] LABS: Blood Urea Nitrogen* 25 mg/dL (7-30); Calcium* 10.3 mg/dL (8.4-10.6); Glucose* 102 mg/dL (60-115); Magnesium* 1.7 mg/dL (1.5-2.6)
[2023-12-12] MEDS: 0.9 % SODIUM CHLORIDE 500 ML 500 ML IV (14:30)
[2023-12-12] MEDS: PROPOFOL 10 MG/ML INJ 200 MG IVP (14:31)
[2023-12-12] MEDS: dilTIAZem 5 MG/ML inj 10 MG IVP (15:09)
--- NOTE | 2023-12-12 15:25 | ED.NURSE ---
Pt vital signs attached to conscious sedation packet.
[2023-12-12] MEDS: dilTIAZem HCL 125 MG in 0.9 % SODIUM CHLORIDE 100 ml 100 ML 10 MG IVPB (16:24)
--- NOTE | 2023-12-12 16:40 | ED.NURSE ---
Pt report given to giorgio RN, pt to room CCU2.
--- NOTE | 2023-12-12 18:58 | P.IMHP_ITS ---
Hospitalist- H&P: HPI History of Present Illness Date Seen: 12/12/23 Chief complaint: Afib Narrative: Jennifer Castle is a 73 year old female past medical history significant for hypertension, hyperlipidemia, hypothyroidism, anxiety/depression, osteoarthritis, pseudogout is admitted to the critical care unit on a diltiazem drip for further management atrial fibrillation. Patient reports falling on Friday, tripping over [place] garden edging while attending to her garden, landing flat on her chest and face. She was able to get herself up, applied ice to her face and right knee, and after encouragement from family, was seen in the clinic today for related injuries. She had x-rays of her right knee which she tells me were fine. She has had a mild frontal headache without neck pain. No dizziness or lightheadedness. While waiting in the waiting room, she could feel her heart fluttering (like bird wings), coming on shortly before 11:00 a.m.. An EKG was obtained, showing atrial fibrillation with RVR. Previous EKG in October showing NSR. She was able to drive herself to the ER for further workup. Currently, patient denies lightheadedness or dizziness. Endorses mild frontal headache. Denies recent fevers or chills. Denies chest pain or shortness of breath. No recent nausea, vomiting, diarrhea. History of constipation for which she takes stool softeners daily. Nonsmoker. Drinks 2 glasses of wine yearly. Seen with son and daughter in-law at bedside. In the ED, cardioversion x2 was attempted without success, she received IV magnesium, and was started on diltiazem drip. Lab work up rather unremarkable. Review of Systems Narrative: REVIEW OF SYSTEMS: Complete review of systems performed and negative unless otherwise stated in HPI or below. 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) ?Z96.651 - Presence of right artificial knee joint (ICD-10) Social History What is your current living situation?: I presently have a place to live Problems where you live: no known problems Problems where you live details: N/A In the past 12 months, utilities in danger of being shut off: no In past 12 months, lack of transportation kept you from medical appts, meetings, work, or getting things needed for daily living: no In the past 12 mos, have been you worried that your food would run out before you had money to buy more?: never true In the past 12 mos, the food you bought just didn't last and you didn't have money to buy more?: never true Highest level of school completed/degree received: some college, no degree Smoking Status: Never smoker Second hand tobacco smoke exposure: No How often do you have a drink containing alcohol: monthly or less Alcohol type: wine Alcohol type details: pt states 2 glasses of wine a year How many standard drinks containing alcohol do you have on a typical day: 1 or 2 How often do you have six or more drinks on one occasion: Less than monthly AUDIT-C Alcohol total score: 2 Non-prescribed substance use: denies use Caffeine: Yes (couple cans Mtn Dew daily) How often does anyone, including family, friends and others, physically hurt you : never How often does anyone, including family, friends and others, insult or talk down to you: never How often does anyone, including family, friends and others, threaten you with harm: never How often does anyone, including family, friends and others, scream or curse at you: never Gender Identity: female service: No Meds Home Medications and Allergies Home Medications ?Medication ?Instructions ?Recorded ?Confirmed ?Type atenolol 50 mg tablet 100 mg PO DAILY 05/10/22 12/12/23 History fluticasone propionate 50 2 spray intranasal DAILY 05/10/22 12/12/23 History mcg/actuation nasal spray,suspension levothyroxine 125 mcg tablet 125 mcg PO DAILY@07 05/10/22 12/12/23 History lorazepam 0.5 mg tablet 0.5 mg PO HS PRN 05/10/22 12/12/23 History multivitamin 1 tab PO DAILY 05/10/22 12/12/23 History potassium chloride 20 mEq 20 meq PO DAILY 05/10/22 12/12/23 History tablet,extended release(part/cryst) meloxicam 7.5 mg tablet 7.5 mg PO BID 10/21/23 12/12/23 History omeprazole 20 mg capsule,delayed 20 mg PO DAILY 10/21/23 12/12/23 History release oxybutynin chloride 10 mg 10 mg PO DAILY 10/21/23 12/12/23 History tablet,extended release 24 hr amlodipine 2.5 mg tablet 2.5 mg PO DAILY 12/12/23 12/12/23 History hydrochlorothiazide 25 mg tablet 25 mg PO DAILY 12/12/23 12/12/23 History simvastatin 20 mg tablet 20 mg PO QPM 12/12/23 12/12/23 History Allergies Allergy/AdvReac Type Severity Reaction Status Date / Time naproxen Allergy Hives Verified 04/13/23 13:50 morphine AdvReac Vomiting Verified 04/13/23 13:50 Exam Narrative: Exam Narrative: PHYSICAL EXAM General: Pleasant, conversant, NAD HEENT: Normocephalic, mild bruising over nasal region, sclera white, EOMI, oral mucosa moist Cardiovascular: IRRR, tachycardic. No pitting edema Pulmonary: CTA bilaterally without rhonchi, rales, expiratory wheezes. No dyspnea on room air Abdominal: Soft, nondistended, NTTP Neurological: Alert, answering questions appropriately, cranial nerves intact, no focal findings Extremities: No gross joint deformity or swelling. AROMI. Neurovascularly intact Skin: Warm, dry. Const: Vital Signs, click to edit/add: Vital Signs - 24 hr 12/12/23 12:39 12/12/23 12:40 12/12/23 12:45 Temperature Pulse Rate 133 H 118 H 106 H Pulse Rate [Pulse Oximeter] Respiratory Rate Blood Pressure 164/110 H Blood Pressure [Ri ght Arm] Blood Pressure [Ri ght Upper Arm] Pulse Oximetry 94 96 97 Oxygen Delivery Me thod 12/12/23 12:47 12/12/23 12:57 12/12/23 12:58 Temperature 97.6 F Pulse Rate Pulse Rate [Pulse Oximeter] 126 H Respiratory Rate 18 Blood Pressure Blood Pressure [Ri ght Arm] Blood Pressure [Ri ght Upper Arm] 164/110 H Pulse Oximetry 95 94 92 Oxygen Delivery Me thod Room Air Room Air 12/12/23 13:06 12/12/23 13:13 12/12/23 13:15 Temperature Pulse Rate 116 H 108 H 120 H Pulse Rate [Pulse Oximeter] Respiratory Rate Blood Pressure 162/135 H Blood Pressure [Ri ght Arm] Blood Pressure [Ri ght Upper Arm] Pulse Oximetry 95 96 95 Oxygen Delivery Me thod 12/12/23 13:30 12/12/23 13:45 12/12/23 14:15 Temperature Pulse Rate 116 H 107 H 120 H Pulse Rate [Pulse Oximeter] Respiratory Rate Blood Pressure Blood Pressure [Ri ght Arm] Blood Pressure [Ri ght Upper Arm] Pulse Oximetry 96 95 97 Oxygen Delivery Me thod 12/12/23 14:30 12/12/23 14:33 12/12/23 14:37 Temperature Pulse Rate 121 H 124 H 110 H Pulse Rate [Pulse Oximeter] Respiratory Rate 19 18 22 Blood Pressure 153/102 H 100/77 Blood Pressure [Ri ght Arm] Blood Pressure [Ri ght Upper Arm] Pulse Oximetry 95 95 91 Oxygen Delivery Me thod 12/12/23 14:42 12/12/23 14:45 12/12/23 15:00 Temperature Pulse Rate 89 116 H 121 H Pulse Rate [Pulse Oximeter] Respiratory Rate 19 13 Blood Pressure 111/80 Blood Pressure [Ri ght Arm] Blood Pressure [Ri ght Upper Arm] Pulse Oximetry 94 96 94 Oxygen Delivery Me thod 12/12/23 15:02 12/12/23 15:15 12/12/23 15:22 Temperature Pulse Rate 106 H 103 H 107 H Pulse Rate [Pulse Oximeter] Respiratory Rate Blood Pressure 140/113 H 125/88 Blood Pressure [Ri ght Arm] Blood Pressure [Ri ght Upper Arm] Pulse Oximetry 94 96 94 Oxygen Delivery Me thod 12/12/23 15:23 12/12/23 15:30 12/12/23 15:42 Temperature Pulse Rate 97 96 117 H Pulse Rate [Pulse Oximeter] Respiratory Rate Blood Pressure 135/94 H Blood Pressure [Ri ght Arm] Blood Pressure [Ri ght Upper Arm] Pulse Oximetry 93 94 92 Oxygen Delivery Me thod 12/12/23 15:45 12/12/23 16:00 12/12/23 16:02 Temperature Pulse Rate 114 H 105 H 120 H Pulse Rate [Pulse Oximeter] Respiratory Rate Blood Pressure 147/115 H Blood Pressure [Ri ght Arm] Blood Pressure [Ri ght Upper Arm] Pulse Oximetry 89 97 95 Oxygen Delivery Me thod 12/12/23 16:15 12/12/23 16:22 12/12/23 16:30 Temperature Pulse Rate 118 H 103 H 102 H Pulse Rate [Pulse Oximeter] Respiratory Rate Blood Pressure 143/95 H 150/86 H Blood Pressure [Ri ght Arm] Blood Pressure [Ri ght Upper Arm] Pulse Oximetry 95 95 95 Oxygen Delivery Me thod 12/12/23 16:31 12/12/23 16:32 12/12/23 17:12 Temperature 97.1 F L Pulse Rate 111 H 107 H Pulse Rate [Pulse Oximeter] 122 H Respiratory Rate 16 Blood Pressure 132/107 H Blood Pressure [Ri ght Arm] 154/105 H Blood Pressure [Ri ght Upper Arm] Pulse Oximetry 95 96 100 Oxygen Delivery Vt thod Room Air 12/12/23 17:15 12/12/23 17:15 12/12/23 17:21 Temperature 97.1 F L Pulse Rate 122 H Pulse Rate [Pulse Oximeter] 125 H Respiratory Rate 16 18 Blood Pressure Blood Pressure [Ri ght Arm] 151/92 H Blood Pressure [Ri ght Upper Arm] Pulse Oximetry 100 96 Oxygen Delivery Me thod Room Air Room Air 12/12/23 17:30 12/12/23 17:42 12/12/23 17:45 Temperature Pulse Rate 51 L Pulse Rate [Pulse Oximeter] 112 H 54 L Respiratory Rate 18 18 Blood Pressure Blood Pressure [Ri ght Arm] 154/116 H 152/81 H Blood Pressure [Ri ght Upper Arm] Pulse Oximetry 96 Oxygen Delivery Me thod Room Air Room Air 12/12/23 18:00 12/12/23 18:30 Temperature Pulse Rate Pulse Rate [Pulse Oximeter] 62 57 L Respiratory Rate 18 Blood Pressure Blood Pressure [Ri ght Arm] 152/83 H 145/82 H Blood Pressure [Ri ght Upper Arm] Pulse Oximetry 95 Oxygen Delivery Me thod Room Air Room Air Hospitalist - H&P: Result Labs Labs: Short CBC 12/12/23 Range/Units 13:27 WBC 9.05 (4.50-11.00) K/uL Hgb 16.1 H (12.0-16.0) gm/dL Hct 48.3 (33.0-51.0) % Plt Count 163 (140-440) K/uL BMP 12/12/23 13:27 Sodium 143 Potassium 3.6 Chloride 108 Carbon Dioxide 29 BUN 25 Creatinine 0.9 Glucose 102 Calcium 10.3 ECG ECG interpretation date: 12/12/23 Interpretation: 1) EKG shows atrial fibrillation with RVR, rate 127, QTC 465 2) EKG following diltiazem drip showing sinus bradycardia Imaging Chest x-ray: Attestation: I have reviewed the pertinent imaging results. Radiologist's impression: Single AP view chest Findings: There is hyperinflation and chronic interstitial change. There are mildly increased interstitial markings likely representing pulmonary vascular congestion. The cardiomediastinal silhouette is within normal limits. The bony thorax is grossly intact. Impression: Mild interstitial prominence likely representing minimal pulmonary vascular congestion. Assessment and Plan Assessment and plan (1) Atrial fibrillation with rapid ventricular response: Problem comment: Paroxysmal. Unclear if/how often recurrent, reporting fluttering sensations in possibly 2 previous episodes Otherwise asymptomatic without shortness of breath, chest pain, lightheadedness/dizziness Recently started on atenolol, dose increased in October to 100 mg nightly Cardioversion x2 attempts in ED unsuccessful, IV magnesium, started on diltiazem drip, converting to NSR shortly after arrival to the floor Continue atenolol 100 mg tonight, consider b.i.d. dosing beta-rupert, calcium channel rupert instead Chads Vasc score 3 (age, sex, HTN) and as s/p cardioversion, Eliquis has been started Echo ordered, could consider outpatient if patient prefers to discharge early tomorrow Outpatient follow-up with PCP, Cardiology, Ziopatch/Holter monitor Status: Acute (2) Hypertension: Problem comment: Recently started antihypertensives following Medicare Annual exam September 2023 with medication adjustments the end of October Continue atenolol tonight for beta-blockade, resuming amlodipine and HCTZ when reviewed by pharmacy Monitor Status: Inactive (3) Hypothyroidism: Problem comment: Continue levothyroxine when reviewed by pharmacy TSH 3.06 Status: Acute (4) Hyperlipidemia: Problem comment: Continue statin Status: Acute (5) Pseudogout: Problem comment: Causing significant pain chronically, recently adequately controlled with meloxicam As we have started Eliquis, will discontinue meloxicam, will trial Ultram at bedtime (previously required high dose narcotics) Follow up with PCP for ongoing pain management Status: Acute Total Time Spent Total Time Spent: Total time spent caring for the patient today was 90 minutes, including critical care time. This includes time spent for the visit reviewing the chart, time spent during the visit, time spent after the visit and documentation and planning in coordination of care.
--- NOTE | 2023-12-12 19:31 | PC.NURSE ---
Admission-- Pleasant and cooperative, alert and oriented patient was admitted to CCU via wheelchair at approximately 1700. Pt was tachycardic with HR in 120s and mildly hypertensive. Other VS WNL and pt is afebrile. SPO2 maintained >94% on RA. She denied any pain or SOB. Telemetry showed afib with RVR and diltiazem drip was running at 10mg/hr per ED. LS CTA. She denied nausea, ate a regular diet and stated a normal BM upon arrival this evening. Bruising noted on bridge of patient's nose and bilateral knees and multiple scattered abrasions noted on anterior of pt's torso which pt stated that she obtained when she tripped in her garden recently. Pt up to BR with SBA and tolerated it well. Son and DIL at bedside and appear loving and supportive. During admission process, with Libra Gonzalez at bedside, pt's heart rate was noted to drop to 50s. Drip was stopped and EKG was completed showing sinus bradycardia. Pt then admitted to Med-surg floor. Report to DAVID Shaw.
[2023-12-12] MEDS: APIXABAN 5 MG TABLET PO (21:16)
[2023-12-12] MEDS: atenoloL 50 MG TABLET 100 MG PO (21:16)
[2023-12-12] MEDS: DOCUSATE SODIUM 100 MG CAPSULE PO (21:16)
[2023-12-12] MEDS: MELATONIN 3 MG TABLET PO (21:17)
[2023-12-12] MEDS: SODIUM CHLORIDE 0.9 % (FLUSH) 10 ML SYRINGE 5 ML IVF (21:17)
[2023-12-12] MEDS: TRAMADOL HCL 50 MG TABLET PO (21:17)
[2023-12-12] MEDS: SODIUM CHLORIDE NASAL SPRAY 1 SPRAY NOSTRIL-B (23:49)
[2023-12-12] MEDS: LORazepam 0.5 MG TABLET PO (23:49)
[2023-12-13] VITALS (9 sets, daily range): BP systolic 116–138; BP diastolic 61–85; PULSE 58–72; RESP 16–18; TEMP 36.3–36.8; O2SAT 93–95
--- NOTE | 2023-12-13 06:21 | PC.NURSE ---
End of shift [id number]: Pt is A&O x4, afebrile and VSS. Her HR maintained SR-SB and rate controlled in the 50s-60s without the Diltiazem gtt needing to be resumed. Pt had been SBA overnight d/t bilat knee stiffness but she was able to walk the halls independently and safely this morning with her cane. Denies having any pain, nausea or dizziness. Pt has urinary incontinence baseline & wears briefs, she had adequate U/O overnight. Bruising across nose bridge more prominent this morning. Bruising noted to bilat knees and scattered abrasions to abdomen. PIV in right hand SL and C/D/I. TELE read NSR-SB overnight. Pt maintained on RA all night. She suffers from insomnia so she requested PRN melatonin @ 2120 and then PRN Ativan @ 2350. Pt was finally able to fall asleep around 0100. Plan for ECHO to be done today or can be done outpatient if pt wishes to discharge home early in the day per MD note. ?
[2023-12-13 07:05] LABS: Hematocrit 47.4 % (33.0-51.0); Hemoglobin* 15.8 gm/dL (12.0-16.0); Mean Corpuscular HGB Conc 33 gm/dL (32-36); Mean Corpuscular Hemoglobin 30 pg (26-34); Mean Corpuscular Volume 91 fL (80-100); Platelet Count* 204 K/uL (140-440); Red Blood Count 5.22 m/uL (4.00-5.20); White Blood Count* 9.02 K/uL (4.50-11.00)
[2023-12-13 07:10] LABS: Slide Review Reflex No
[2023-12-13] MEDS: LEVOTHYROXINE 125 MCG TABLET PO (07:21)
[2023-12-13 07:24] LABS: Chloride* 104 mmol/L (96-114); Sodium* 143 mmol/L (135-149)
[2023-12-13 07:25] LABS: Potassium* 4.1 mmol/L (3.6-5.1)
[2023-12-13 07:27] LABS: Anion Gap 6 mEq/L (7-15); Carbon Dioxide* 33 mmol/L (20-32); Creatinine* 1.1 mg/dL (0.5-1.5); Est. Creatinine Clearance* 35.49; Estimated Glomerular Filt Rate 53 ml/min
[2023-12-13 07:28] LABS: Blood Urea Nitrogen* 31 mg/dL (7-30); Calcium* 10.3 mg/dL (8.4-10.6); Glucose* 107 mg/dL (60-115)
[2023-12-13] MEDS: OMEPRAZOLE 20 MG CAPSULE DR PO (07:30)
[2023-12-13] MEDS: METOPROLOL SUCCINATE (XL) 50 MG TAB PO (09:07)
[2023-12-13] MEDS: ACETAMINOPHEN 325 MG TABLET 1000 MG PO ×3 (09:08→21:07)
[2023-12-13] MEDS: oxyBUTYnin chloride 5 MG TAB.ER.24 10 MG PO (09:09)
[2023-12-13] MEDS: APIXABAN 5 MG TABLET PO ×2 (09:10→21:06)
[2023-12-13] MEDS: DOCUSATE SODIUM 100 MG CAPSULE PO ×2 (09:10→21:07)
[2023-12-13] MEDS: SODIUM CHLORIDE 0.9 % (FLUSH) 10 ML SYRINGE 5 ML IVF ×2 (09:15→21:09)
--- NOTE | 2023-12-13 15:10 | PC.NURSE ---
End of Shift: Patient pleasant and cooperative, A&O. VSS, afebrile. LS CTA. Patient up independently to the bathroom and walking the halls independently. Patient denies pain this shift. Left arm restriction.
--- NOTE | 2023-12-13 16:01 | P.DS_ITS ---
DS: Providers Provider Date Seen: 12/13/23 Date of admission: 12/13/23 07:44 Primary care physician: Joslyn Turcios MD Admitting Clinician: Radha Epstein MD Consults: 12/12/23 18:33 Consult to Physical Therapy [CONS] Routine Comment: Reason(s) for PT Consult:: Recent Falls Any Restrictions?:: No Restrictions Attending Physician on discharge: Laura Estrada MD Date of Discharge: 12/13/23 DS: Diagnosis Discharge Diagnosis (1) Atrial fibrillation with rapid ventricular response: Status: Acute Problem details: Paroxysmal. Unclear if/how often recurrent, reporting fluttering sensations in possibly 2 previous episodes Otherwise asymptomatic without shortness of breath, chest pain, lightheadedness/dizziness Recently started on atenolol, dose increased in October to 100 mg nightly Cardioversion x2 attempts in ED unsuccessful, IV magnesium, started on diltiazem drip, converting to NSR shortly after arrival to the floor Continue atenolol 100 mg tonight, consider b.i.d. dosing beta-rupert, calcium channel rupert instead Chads Vasc score 3 (age, sex, HTN) and as s/p cardioversion, Eliquis has been started Echo ordered, could consider outpatient if patient prefers to discharge early tomorrow Outpatient follow-up with PCP, Cardiology, Ziopatch/Holter monitor (2) Hypertension: Status: Inactive Problem details: Recently started antihypertensives following Medicare Annual exam September 2023 with medication adjustments the end of October Continue atenolol tonight for beta-blockade, resuming amlodipine and HCTZ when reviewed by pharmacy Monitor (3) Hypothyroidism: Status: Acute Problem details: Continue levothyroxine when reviewed by pharmacy TSH 3.06 (4) Hyperlipidemia: Status: Acute Problem details: Continue statin (5) Pseudogout: Status: Acute Problem details: Causing significant pain chronically, recently adequately controlled with meloxicam As we have started Eliquis, will discontinue meloxicam, will trial Ultram at bedtime (previously required high dose narcotics) Follow up with PCP for ongoing pain management DS: Summary Time Spent with Patient Time attestation: Total time spent providing and/or coordinating discharge services: Exam Const: Vital Signs, click to edit/add: Vital Signs - 24 hr 12/12/23 16:02 12/12/23 16:15 12/12/23 16:22 Temperature Pulse Rate 120 H 118 H 103 H Pulse Rate [Pulse Oximeter] Respiratory Rate Blood Pressure 147/115 H 143/95 H Blood Pressure [Ri ght Arm] Pulse Oximetry 95 95 [facility] 12/12/23 16:30 12/12/23 16:31 12/12/23 16:32 Temperature Pulse Rate 102 H 111 H 107 H Pulse Rate [Pulse Oximeter] Respiratory Rate Blood Pressure 150/86 H 132/107 H Blood Pressure [Ri ght Arm] Pulse Oximetry 95 95 96 Oxygen Delivery [facility] 12/12/23 17:12 12/12/23 17:15 12/12/23 17:15 Temperature 97.1 F L 97.1 F L Pulse Rate Pulse Rate [Pulse Oximeter] 122 H 125 H Respiratory Rate 16 16 18 Blood Pressure Blood Pressure [Ri ght Arm] 154/105 H 151/92 H Pulse Oximetry 100 100 96 Oxygen Delivery [facility] Room Air Room Air Room Air 12/12/23 17:21 12/12/23 17:30 12/12/23 17:42 Temperature Pulse Rate 122 H 51 L Pulse Rate [Pulse Oximeter] 112 H Respiratory Rate 18 Blood Pressure Blood Pressure [Ri ght Arm] 154/116 H Pulse Oximetry 96 Oxygen Delivery [facility] Room Air 12/12/23 17:45 12/12/23 18:00 12/12/23 18:30 Temperature Pulse Rate Pulse Rate [Pulse Oximeter] 54 L 62 57 L Respiratory Rate 18 18 Blood Pressure Blood Pressure [Ri ght Arm] 152/81 H 152/83 H 145/82 H Pulse Oximetry 95 Oxygen Delivery [facility] Room Air Room Air Room Air 12/12/23 19:00 12/12/23 19:00 12/12/23 23:00 Temperature 96.5 F L Pulse Rate 56 L 59 L Pulse Rate [Pulse Oximeter] 54 L Respiratory Rate 18 Blood Pressure Blood Pressure [Ri ght Arm] 151/72 H Pulse Oximetry 99 Oxygen Delivery [facility] Room Air 12/12/23 23:00 12/12/23 23:00 12/13/23 03:00 Temperature 97.4 F L 97.5 F L Pulse Rate Pulse Rate [Pulse Oximeter] 59 L 61 61 Respiratory Rate 18 18 18 Blood Pressure Blood Pressure [Ri ght Arm] 105/57 L 129/64 Pulse Oximetry 93 93 Oxygen Delivery Me thod Room Air Room Air 12/13/23 07:00 12/13/23 07:00 12/13/23 07:25 Temperature 97.3 F L Pulse Rate 58 L Pulse Rate [Pulse Oximeter] 61 61 Respiratory Rate 16 16 Blood Pressure Blood Pressure [Ri ght Arm] 129/85 Pulse Oximetry 94 Oxygen Delivery Me thod Room Air 12/13/23 11:00 12/13/23 15:04 12/13/23 15:06 Temperature 97.6 F 98.2 F Pulse Rate 72 Pulse Rate [Pulse Oximeter] 62 68 Respiratory Rate 18 18 Blood Pressure Blood Pressure [Ri ght Arm] 116/61 133/62 Pulse Oximetry 94 94 Oxygen Delivery Me thod Room Air Room Air 12/13/23 15:06 Temperature Pulse Rate Pulse Rate [Pulse Oximeter] 68 Respiratory Rate 18 Blood Pressure Blood Pressure [Ri ght Arm] Pulse Oximetry Oxygen Delivery Me thod DS: Data Data Completed and Pending Labs on day of discharge: Labs from last 24 hours 12/13/23 06:00 WBC 9.02 RBC 5.22 H Hgb 15.8 Hct 47.4 MCV 91 MCH 30 MCHC 33 Plt Count 204 Sodium 143 Potassium 4.1 Chloride 104 Carbon Dioxide 33 H Anion Gap 6 L BUN 31 H Creatinine 1.1 Estimated Creat Clear 35.49 Estimated GFR 53 Glucose 107 Calcium 10.3 Discharge Plan Discharge Disposition: Home, Self-Care Date of Admission: 12/13/23 07:44 Attending Provider on Discharge: Laura Estrada Primary Care Provider: Joslyn Turcios Condition: Stable Anticipated Discharge Date/Time: 12/13/23 15:58 Discharge Medications: New metoprolol succinate 50 mg Tablet Extended Release 24 Hr 50 mg PO DAILY Qty: 30 0RF Eliquis 5 mg Tablet 5 mg PO BID Qty: 60 0RF colchicine 0.6 mg tablet 0.6 mg PO BID PRNQty: 60 0RF Rx Instructions: as needed for arthritis pain Continued fluticasone propionate 50 mcg/actuation spray,suspension 2 spray intranasal DAILY levothyroxine 125 mcg tablet 125 mcg PO DAILY@07 lorazepam 0.5 mg tablet 0.5 mg PO HS PRN multivitamin Tablet 1 tab PO DAILY oxybutynin chloride 10 mg tablet extended release 24hr 10 mg PO DAILY omeprazole 20 mg capsule,delayed release(DR/EC) 20 mg PO DAILY amlodipine 2.5 mg tablet 2.5 mg PO DAILY simvastatin 20 mg tablet 20 mg PO QPM Discontinued atenolol 50 mg tablet 100 mg PO DAILY potassium chloride 20 mEq tablet,ER particles/crystals 20 meq PO DAILY meloxicam 7.5 mg tablet 7.5 mg PO BID hydrochlorothiazide 25 mg tablet 25 mg PO DAILY Discharge Orders: Discharge Order (Routine); Ordered 12/13/23 Ordered By: Laura Estrada Additional Instructions: MEDICATION CHANGES: - STOP your HCTZ + Potassium (your potassium shouldn't go low while you're off of the Hydrochlorothiazide) - STOP your Atenolol (we've swapped this for Metoprolol) - STOP Meloxicam (for kidney function and risk of bleeding with Eliquis) - START Eliquis (blood thinner for a fib), twice/day (I like 9am/9pm for this) - START Metoprolol (once per day, helps with BP control and heart rate control), take at EITHER 9am or 9pm - START Colchicine for arthritis pain (per Rheumatology recommendation), 0.6mg twice/day (9am/9pm also works for this) You can also use Tylenol (up to 4000mg/24 hours, I like dosing this at 1000mg three times/day with meals) for pain if needed. Activity Level: Activity as Tolerated Discharge Diet: Regular Follow Up Appointments: Joslyn Turcios MD [Primary Care Provider] - (Hospital f/u appointment with Dr. Turcios in 3-7 days for hospital d/c followup ) Forms: [employer] Info Instructions
--- NOTE | 2023-12-13 16:09 | PM.IMPN1 ---
Progress Note: A&P Assessment and plan (1) Atrial fibrillation with rapid ventricular response: Problem details: - paroxysmal - Cardioversion attempted x2 in hospital, unsuccessful. Converted on diltiazem gtt overnight 12/11-12/12 - transitioned from home dose of Atenolol to Metoprolol on 12/12 - Chads-Vasc score 3 (age, sex, HTN) and as s/p cardioversion, Eliquis initiated 12/11 - TTE to be done 12/12 Status: Acute (2) Hypertension: Problem details: - home medications: HCTZ (+K), Atenolol, Amlodipine - transitioned Atenolol to Metoprolol on 12/12, holding HCTZ and K, currently has age-appropriate BP control Status: Inactive (3) Hypothyroidism: Problem details: - Continue levothyroxine, TSH 3.06 Status: Acute (4) Hyperlipidemia: Problem details: - continue statin Status: Acute (5) Pseudogout: Problem details: - chronic pain as a result, has typically adequately controlled with BID Meloxicam as an outpatient - reviewed previous Rheumatology notes; Colchicine recommended as next best option, will initiate that + TID prn Tylenol Status: Acute Plan - per above - await TTE results - Eliquis for ppx - confirm stability on new regimen, likely home tomorrow Subjective Date Seen: 12/13/23 Interval history: Elahm was admitted to the hospital last night for paroxysmal atrial fibrillation with RVR. In the emergency room, cardioversion was attempted x2; this was unsuccessful and she was admitted to the floor on a diltiazem drip. Overnight, she converted into a normal sinus rhythm. Notes a history of palpitations in the past that have never been identified; realizes now these were likely paroxysmal atrial fibrillation episodes as well. She is amenable to continuing Eliquis as anticoagulation. We reviewed her home medications: Transition Atenolol to Metoprolol today, stop hydrochlorothiazide and potassium. She has been on Meloxicam with excellent relief for her pseudogout; understands this will need to be discontinued with the addition of Eliquis. Rheumatology notes reviewed and colchicine recommended as next line of treatment. We will initiate that today. Exam Narrative: Exam Narrative: GEN: Alert and oriented, sitting comfortably in bedside chair HEENT: EOMIs bilaterally, no scleral icterus CV: RRR, No concerning murmurs R: LCTA bilaterally without concerning wheezing, breathing comfortably Ext: wwp, no concerning edema Skin: No concerning skin lesions or rashes on exposed skin Neuro: No focal deficits, ambulating well with cane Psych: Appropriate Const: Vital Signs, click to edit/add: Vital Signs - 24 hr 12/12/23 16:15 12/12/23 16:22 12/12/23 16:30 Temperature Pulse Rate 118 H 103 H 102 H Pulse Rate [Pulse Oximeter] Respiratory Rate Blood Pressure 143/95 H 150/86 H Blood Pressure [Ri ght Arm] Pulse Oximetry 95 95 95 Oxygen Delivery Me thod 12/12/23 16:31 12/12/23 16:32 12/12/23 17:12 Temperature 97.1 F L Pulse Rate 111 H 107 H Pulse Rate [Pulse Oximeter] 122 H Respiratory Rate 16 Blood Pressure 132/107 H Blood Pressure [Ri ght Arm] 154/105 H Pulse Oximetry 95 96 100 Oxygen Delivery Fl thod Room Air 12/12/23 17:15 12/12/23 17:15 12/12/23 17:21 Temperature 97.1 F L Pulse Rate 122 H Pulse Rate [Pulse Oximeter] 125 H Respiratory Rate 16 18 Blood Pressure Blood Pressure [Ri ght Arm] 151/92 H Pulse Oximetry 100 [facility] 12/12/23 17:30 12/12/23 17:42 12/12/23 17:45 Temperature Pulse Rate 51 L Pulse Rate [Pulse Oximeter] 112 H 54 L Respiratory Rate 18 18 Blood Pressure Blood Pressure [Ri ght Arm] 154/116 H 152/81 H Pulse Oximetry 96 [facility] Air 12/12/23 18:00 12/12/23 18:30 12/12/23 19:00 Temperature Pulse Rate 56 L Pulse Rate [Pulse Oximeter] 62 57 L Respiratory Rate 18 Blood Pressure Blood Pressure [Ri ght Arm] 152/83 H 145/82 H Pulse Oximetry 95 Oxygen Delivery Fl thod Room Air Room Air 12/12/23 19:00 12/12/23 23:00 12/12/23 23:00 Temperature 96.5 F L Pulse Rate 59 L Pulse Rate [Pulse Oximeter] 54 L 59 L Respiratory Rate 18 18 Blood Pressure Blood Pressure [Ri ght Arm] 151/72 H Pulse Oximetry 99 Oxygen Delivery Me thod Room Air 12/12/23 23:00 12/13/23 03:00 12/13/23 07:00 Temperature 97.4 F L 97.5 F L 97.3 F L Pulse Rate Pulse Rate [Pulse Oximeter] 61 61 61 Respiratory Rate 18 18 16 Blood Pressure Blood Pressure [Ri ght Arm] 105/57 L 129/64 129/85 Pulse Oximetry 93 93 94 Oxygen Delivery Me thod Room Air Room Air Room Air 12/13/23 07:00 12/13/23 07:25 12/13/23 11:00 Temperature 97.6 F Pulse Rate 58 L Pulse Rate [Pulse Oximeter] 61 62 Respiratory Rate 16 18 Blood Pressure Blood Pressure [Ri ght Arm] 116/61 Pulse Oximetry 94 Oxygen Delivery Me thod Room Air 12/13/23 15:04 12/13/23 15:06 12/13/23 15:06 Temperature 98.2 F Pulse Rate 72 Pulse Rate [Pulse Oximeter] 68 68 Respiratory Rate 18 18 Blood Pressure Blood Pressure [Ri ght Arm] 133/62 Pulse Oximetry 94 Oxygen Delivery Me thod Room Air Labs Labs: Laboratory Results - last 24 hr 12/13/23 06:00 WBC 9.02 RBC 5.22 H Hgb 15.8 Hct 47.4 MCV 91 MCH 30 MCHC 33 Plt Count 204 Sodium 143 Potassium 4.1 Chloride 104 Carbon Dioxide 33 H Anion Gap 6 L BUN 31 H Creatinine 1.1 Estimated Creat Clear 35.49 Estimated GFR 53 Glucose 107 Calcium 10.3
[2023-12-13] MEDS: SIMVASTATIN 20 MG TABLET PO (17:30)
--- NOTE | 2023-12-13 18:11 | PC.NURSE ---
End of Shift([id number]): Patient pleasant and cooperative. Patient vitally stable, lungs clear, BS WNL, IV SL and intact. Patient rates generalized body pain 4/10, no pain meds given. Patient independent in room. Patient urinating and had 1 BM. Patient tolerating regular diet.
[2023-12-13] MEDS: LORazepam 0.5 MG TABLET PO (21:06)
[2023-12-13] MEDS: MELATONIN 3 MG TABLET PO (21:06)
[2023-12-13] MEDS: COLCHICINE 0.6 MG CAPSULE PO (21:52)
[2023-12-14 02:05] VITALS: BP 121/65; PULSE 67; RESP 16; TEMP 36.4; O2SAT 93
[2023-12-14] MEDS: LEVOTHYROXINE 125 MCG TABLET PO (05:34)
[2023-12-14] MEDS: OMEPRAZOLE 20 MG CAPSULE DR PO (05:36)
[2023-12-14 05:47] VITALS: BP 163/103; PULSE 134; RESP 18; O2SAT 94
[2023-12-14 06:00] VITALS: BP 153/64; PULSE 70; RESP 16; O2SAT 95
[2023-12-14] MEDS: SODIUM CHLORIDE 0.9 % (FLUSH) 10 ML SYRINGE 5 ML IVF (06:27)
[2023-12-14] MEDS: METOPROLOL TARTRATE 1 MG/ML inj 2.5 MG IVP (06:29)
--- NOTE | 2023-12-14 07:00 | PC.NURSE ---
At about 0525 pt went int afib RVR with rates 120-150's. [facility] notified and an order for Metoprolol 2.5 IV once was gotten. Pt then was noted to be in SR before med given. B/P 168/103. Med was given by Jasmyn HERNANDEZ.
[2023-12-14 07:10] LABS: Chloride* 106 mmol/L (96-114); Sodium* 139 mmol/L (135-149)
[2023-12-14 07:11] LABS: Potassium* 3.6 mmol/L (3.6-5.1)
[2023-12-14 07:13] LABS: Creatinine* 1.1 mg/dL (0.5-1.5); Est. Creatinine Clearance* 35.49; Estimated Glomerular Filt Rate 53 ml/min
[2023-12-14 07:14] LABS: Anion Gap 4 mEq/L (7-15); Blood Urea Nitrogen* 40 mg/dL (7-30); Carbon Dioxide* 29 mmol/L (20-32); Glucose* 104 mg/dL (60-115)
--- NOTE | 2023-12-14 07:23 | PC.NURSE ---
Pt alert and oriented x3. Afebrile. Pt denies pain, SOB, chest pain, N/V. Pt is on Tele and was NSR most of night, around 0540 this RN was talking with pt sitting at edge of bed and pt went into a-fib with HR 130-160, pt denied SOB, chest pain, chest fluttering, light headiness and N/V. baker test called and update [facility] MD Helm, this RN took an EKG. MD Helm ordered metoprolol titrate VIP 2.5 mg. Pt was in a-fib until 0555, RN was taking EKG and printing a second sheet when pt converted to NSR. Pt remained in NSR, but pt's bp was 168/103, metoprolol was given. Pt slept intermittently throughout night.
[2023-12-14 07:34] VITALS: PULSE 71
[2023-12-14 07:42] VITALS: BP 151/75; PULSE 70; RESP 16; TEMP 36.6; O2SAT 95
--- NOTE | 2023-12-14 07:46 | PM.DS1 ---
DS: Providers Provider Date Seen: 12/14/23 Date of admission: 12/13/23 07:44 Primary care physician: Joslyn Turcios MD Admitting Clinician: Radha Epstein MD Consults: 12/12/23 18:33 Consult to Physical Therapy [CONS] Routine Comment: Reason(s) for PT Consult:: Recent Falls Any Restrictions?:: No Restrictions Attending Physician on discharge: Laura Estrada PA-C Date of Discharge: 12/14/23 DS: Diagnosis Discharge Diagnosis (1) Atrial fibrillation with rapid ventricular response: Status: Acute Problem details: - paroxysmal - Cardioversion attempted x2 in ED on admission, unsuccessful. Converted on diltiazem gtt overnight 12/11-12/12 - transitioned from home dose of Atenolol to Metoprolol on 12/12 - Chads-Vasc score 3 (age, sex, HTN) and as s/p cardioversion, Eliquis initiated 12/11 - TTE on 12/12: Final Impressions: 1. Normal left ventricular size, normal wall thickness, normal global systolic function, calculated EF of 67 %. 2. Right ventricular cavity size is normal, global systolic RV function is normal. 3. No significant valvular abnormalities. 4. Color Doppler suggests a possible PFO. 5. Normal estimated pulmonary pressures by tricuspid regurgitation velocity and right atrial pressure (20 mmHg plus RAP). Comparison There are no prior studies on this patient for comparison purposes. (2) Hypertension: Status: Inactive Problem details: - home medications: HCTZ (+K), Atenolol, Amlodipine - transitioned Atenolol to Metoprolol on 12/12, holding HCTZ and K, upon discharge has age-appropriate BP control (3) Hypothyroidism: Status: Acute Problem details: - Continue levothyroxine, TSH 3.06 (4) Hyperlipidemia: Status: Acute Problem details: - continue statin (5) Pseudogout: Status: Acute Problem details: - chronic pain as a result, has typically adequately controlled with BID Meloxicam as an outpatient - reviewed previous Rheumatology notes; Colchicine recommended as next best option, initiated that + TID prn Tylenol DS: Summary Hospital Course Hospital Course: Jennifer was admitted to the hospital for paroxysmal atrial fibrillation; cardioversion in the emergency room was unsuccessful. She was treated on the floor with a diltiazem drip and thus converted to normal sinus rhythm. Had 1 episode of paroxysmal AFib, converted with 1 dose of IV metoprolol. TTE reassuring, patient felt stable for discharge home (with close PCP follow-up) on hospital day 2 Home medication changes during stay: - transitioned atenolol to once daily metoprolol succinate (also given a pill in the pocket metoprolol tartrate) - added apixaban given chads Vasc score of 3 - discontinued meloxicam (on this for pseudogout) given bleeding risk, uric acid initiated for pain management per previous rheumatology note - hydrochlorothiazide and potassium discontinued Status at Discharge Functional status at discharge: independent ambulation Overall status at discharge: patient is back to baseline Time Spent with Patient Time attestation: Total time spent providing and/or coordinating discharge services: Time spent: Greater than 30 minutes Specific discharge activities: Medication reconciliation, patient Education Exam Narrative: Exam Narrative: GEN: Alert and oriented, nontoxic HEENT: EOMIs bilaterally, no scleral icterus CV: RRR, No concerning murmurs R: LCTA bilaterally without concerning wheezing, air movement adequate Ext: wwp, no concerning edema Skin: No concerning skin lesions or rashes on exposed skin Neuro: No focal deficits Psych: Appropriate Const: Vital Signs, click to edit/add: Vital Signs - 24 hr 12/13/23 11:00 12/13/23 15:04 12/13/23 15:06 Temperature 97.6 F 98.2 F Pulse Rate 72 Pulse Rate [Pulse Oximeter] 62 68 Respiratory Rate 18 18 Blood Pressure [Ri t Arm] 116/61 133/62 Pulse Oximetry 94 94 Oxygen Delivery Me thod Room Air Room Air 12/13/23 15:06 12/13/23 19:47 12/13/23 19:47 Temperature 97.7 F Pulse Rate Pulse Rate [Pulse Oximeter] 68 63 63 Respiratory Rate 18 16 Blood Pressure [Ri ght Arm] 138/70 Pulse Oximetry 95 Oxygen Delivery Me thod Room Air 12/13/23 21:57 12/13/23 22:02 12/14/23 02:05 Temperature 97.5 F L 97.6 F Pulse Rate 65 Pulse Rate [Pulse Oximeter] 66 67 Respiratory Rate 16 16 Blood Pressure [Ri t Arm] 134/68 121/65 Pulse Oximetry 93 93 Oxygen Delivery Me thod Room Air Room Air 12/14/23 05:47 12/14/23 06:00 Temperature Pulse Rate Pulse Rate [Pulse Oximeter] 134 H 70 Respiratory Rate 18 16 Blood Pressure [Ri ght Arm] 163/103 H 153/64 H Pulse Oximetry 94 95 Oxygen Delivery Ne thod Room Air Room Air DS: Data Data Completed and Pending Labs on day of discharge: Labs from last 24 hours 12/14/23 06:25 Sodium 139 Potassium 3.6 Chloride 106 Carbon Dioxide 29 Anion Gap 4 L BUN 40 H Creatinine 1.1 Estimated Creat Clear 35.49 Estimated GFR 53 Glucose 104 Calcium 10.0 Discharge Plan Discharge Disposition: Home, Self-Care Date of Admission: 12/13/23 07:44 Attending Provider on Discharge: Laura Estrada Primary Care Provider: Joslyn Turcios Condition: Stable Anticipated Discharge Date/Time: 12/13/23 15:58 Discharge Medications: New metoprolol succinate 50 mg Tablet Extended Release 24 Hr 50 mg PO DAILY Qty: 30 0RF Eliquis 5 mg Tablet 5 mg PO BID Qty: 60 0RF colchicine 0.6 mg tablet 0.6 mg PO BID PRNQty: 60 0RF Rx Instructions: as needed for arthritis pain metoprolol tartrate 25 mg tablet 12.5 mg PO DAILY PRNQty: 30 0RF Rx Instructions: TAKE ONCE NEEDED FOR FLARE OF AFIB WITH hr >100 melatonin 5 mg tablet 5 mg PO HS PRN (Reason: sleep) Qty: 30 0RF Continued fluticasone propionate 50 mcg/actuation spray,suspension 2 spray intranasal DAILY levothyroxine 125 mcg tablet 125 mcg PO DAILY@07 lorazepam 0.5 mg tablet 0.5 mg PO HS PRN multivitamin Tablet 1 tab PO DAILY oxybutynin chloride 10 mg tablet extended release 24hr 10 mg PO DAILY omeprazole 20 mg capsule,delayed release(DR/EC) 20 mg PO DAILY amlodipine 2.5 mg tablet 2.5 mg PO DAILY simvastatin 20 mg tablet 20 mg PO QPM Discontinued atenolol 50 mg tablet 100 mg PO DAILY potassium chloride 20 mEq tablet,ER particles/crystals 20 meq PO DAILY meloxicam 7.5 mg tablet 7.5 mg PO BID hydrochlorothiazide 25 mg tablet 25 mg PO DAILY Discharge Orders: Discharge Order (Routine); Ordered 12/14/23 Ordered By: Laura Estrada Patient Education: Metoprolol (By mouth), Colchicine (By mouth), Melatonin (By mouth), Apixaban (By mouth), A-fib (Atrial Fibrillation) (GEN) Additional Instructions: MEDICATION CHANGES: - STOP your HCTZ + Potassium (your potassium shouldn't go low while you're off of the Hydrochlorothiazide) - STOP your Atenolol (we've swapped this for Metoprolol) - STOP Meloxicam (for kidney function and risk of bleeding with Eliquis) - START Eliquis (blood thinner for a fib), twice/day (I like 9am/9pm for this) - START Metoprolol (once per day, helps with BP control and heart rate control), take at EITHER 9am or 9pm - START Colchicine for arthritis pain (per Rheumatology recommendation), 0.6mg twice/day (9am/9pm also works for this) - NEEDED: Tylenol (up to 4000mg/24 hours, I like dosing this at 1000mg three times/day with meals) for pain if needed Metoprolol (1/2 of a 25mg tablet) for flare of atrial fibrillation, take for HR greater than 100 Melatonin 5mg at night for sleep Lorazepam 0.5mg at night for sleep Activity Level: Activity as Tolerated Discharge Diet: Regular Follow Up Appointments: Judie Dasilva MD [Staff Physician] - 12/19/23 11:30 am ([facility] for follow-up.) Joslyn Turcios MD [Primary Care Provider] - (Hospital f/u appointment with Dr. Turcios in 3-7 days for hospital d/c followup ) Forms: [employer] Info Instructions
[2023-12-14] MEDS: METOPROLOL SUCCINATE (XL) 50 MG TAB PO (08:59)
[2023-12-14] MEDS: ACETAMINOPHEN 500 MG TABLET 1000 MG PO (08:59)
[2023-12-14] MEDS: oxyBUTYnin chloride 5 MG TAB.ER.24 10 MG PO (08:59)
[2023-12-14] MEDS: APIXABAN 5 MG TABLET PO (08:59)
[2023-12-14] MEDS: DOCUSATE SODIUM 100 MG CAPSULE PO (09:00)
[2023-12-14] MEDS: COLCHICINE 0.6 MG CAPSULE PO (09:05)
--- NOTE | 2023-12-14 10:27 | PC.NURSE ---
Discharge: Patient pleasant and cooperative. Patient vitally stable, lungs clear, BS WNL, IV removed, catheter intact. Patient denies pain this morning. Patient independent in room. Patient urinating and tolerating regular diet. Tele=NSR. Patient signed discharge form, there was no belongings sheet for this patient. Patient had no further questions regarding discharge education. Patient left the floor by wheelchair to home at 1024.
== END 2023-12-14 10:24 | disposition home or self-care (01) | DRG 310 ==
LOC: ED 16:40 → MEDSURG 16:49
PROVIDERS: Admitting Provider Family Medicine; Emergency Provider Emergency Medicine; PCP Family Medicine; Visit Provider Physician Assistant
DX: I48.0 Paroxysmal atrial fibrillation (principal); I10 Essential (primary) hypertension; E03.9 Hypothyroidism, unspecified; E78.5 Hyperlipidemia, unspecified; M11.20 Other chondrocalcinosis, unspecified site; F32.A Depression, unspecified; F41.1 Generalized anxiety disorder
CPT/HCPCS: 92960; 36415; 71045; 80048; 83735; 84443; 84484; 85025; 85027; 93005; 93306; 94761; 97161; 99156; 99283; 99285; 99291; G0378; A9270; G0390; J2704; J3475; J3490; J7030

== ENCOUNTER 2024-04-24 13:11 | Emergency (ER) | payer MEDICARE, OTHER, SELFPAY ==
[2024-04-24 13:14] VITALS: BP 132/73; PULSE 103; RESP 16; TEMP 36.6; O2SAT 96; BMI 36.6
--- NOTE | 2024-04-24 13:35 | ED.ARRPALP ---
HPI - Arrhythmia/Palpitations General Chief Complaint: Arrhythmia/Palpitations Stated Complaint: in A-fib Time Seen by Provider: 04/24/24 13:17 History of Present Illness HPI narrative: Patient is a 73-year-old woman who has had history of paroxysmal atrial fibrillation on anticoagulation but no history of atrial fibrillation for quite some time who presents with the abrupt onset of irregular pulse approximately 2 hours ago. She is not exerting herself the time of the onset of her symptoms. She has no chest pain no shortness a breath orthopnea no PND. Does feel irregular pulse which is confirmed by her phone. Patient is fully anticoagulated on Eliquis and does take Toprol-XL 100 mg daily and 12.5 mg of metoprolol on a p.r.n. basis which she took prior to coming in. On arrival her pulse is 103. She notices a gradual increase in her lower extremity edema over the last several weeks but no other up abrupt changes. Related Data Home Medications ?Medication ?Instructions ?Recorded ?Confirmed fluticasone propionate 50 2 spray intranasal DAILY 05/10/22 04/24/24 mcg/actuation nasal spray,suspension levothyroxine 125 mcg tablet 125 mcg PO DAILY@07 05/10/22 04/24/24 lorazepam 0.5 mg tablet 0.5 mg PO HS PRN 05/10/22 04/24/24 multivitamin 1 tab PO DAILY 05/10/22 04/24/24 omeprazole 20 mg capsule,delayed 20 mg PO DAILY 10/21/23 04/24/24 release oxybutynin chloride 10 mg 10 mg PO DAILY 10/21/23 12/12/23 tablet,extended release 24 hr amlodipine 2.5 mg tablet 10 mg PO DAILY 12/12/23 04/24/24 simvastatin 20 mg tablet 20 mg PO QPM 12/12/23 12/12/23 fluticasone propionate 50 2 spray intranasal DAILY PRN 04/24/24 04/24/24 mcg/actuation nasal spray,suspension (24 Hour Allergy Relief) gabapentin 100 mg capsule 100 mg PO HS 04/24/24 04/24/24 melatonin 5 mg tablet 10 mg PO HS PRN sleep 04/24/24 04/24/24 metoprolol succinate 50 mg 100 mg PO DAILY 04/24/24 04/24/24 tablet,extended release 24 hr mirabegron 50 mg tablet,extended 50 mg PO DAILY 04/24/24 04/24/24 release 24 hr (Myrbetriq) prednisone 5 mg tablet 5 mg PO DAILY 04/24/24 04/24/24 Previous Rx's ?Medication ?Instructions ?Recorded apixaban 5 mg tablet (Eliquis) 5 mg PO BID #60 tabs 12/13/23 colchicine 0.6 mg tablet 0.6 mg PO BID PRN #60 tabs 12/13/23 metoprolol tartrate 25 mg tablet 12.5 mg (1/2 x 25 mg) PO DAILY PRN 12/14/23 #30 tabs Allergies Allergy/AdvReac Type Severity Reaction Status Date / Time naproxen Allergy Hives Verified 04/24/24 13:21 morphine AdvReac Vomiting Verified 04/24/24 13:21 [facility] Medical History Health care directive on file ?Z78.9 - Other specified health status (ICD-10) Depression ?F32.A - Depression, unspecified (ICD-10) Pseudogout ?M11.20 - Other chondrocalcinosis, unspecified site (ICD-10) Generalized anxiety disorder ?F41.1 - Generalized anxiety disorder (ICD-10) History of breast cancer ?Z85.3 - Personal history of malignant neoplasm of breast (ICD-10) Hyperlipidemia ?E78.5 - Hyperlipidemia, unspecified (ICD-10) Hypothyroidism ?E03.9 - Hypothyroidism, unspecified (ICD-10) Surgical History Status post bilateral mastectomy ?Z90.13 - Acquired absence of bilateral breasts and nipples (ICD-10) 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) ?Z96.651 - Presence of right artificial knee joint (ICD-10) Social History What is your current living situation?: I presently have a place to live Problems where you live: no known problems Problems where you live details: N/A In the past 12 months, utilities in danger of being shut off: no In past 12 months, lack of transportation kept you from medical appts, meetings, work, or getting things needed for daily living: no In the past 12 mos, have been you worried that your food would run out before you had money to buy more?: never true In the past 12 mos, the food you bought just didn't last and you didn't have money to buy more?: never true Highest level of school completed/degree received: some college, no degree Smoking Status: Never smoker Second hand tobacco smoke exposure: No How often do you have a drink containing alcohol: monthly or less Alcohol type: wine Alcohol type details: pt states 2 glasses of wine a year How many standard drinks containing alcohol do you have on a typical day: 1 or 2 How often do you have six or more drinks on one occasion: Less than monthly AUDIT-C Alcohol total score: 2 Non-prescribed substance use: denies use Caffeine: Yes (couple cans Mtn Dew daily) How often does anyone, including family, friends and others, physically hurt you: never How often does anyone, including family, friends and others, insult or talk down to you: never How often does anyone, including family, friends and others, threaten you with harm: never How often does anyone, including family, friends and others, scream or curse at you: never Gender Identity: female service: No Exam Narrative: Exam Narrative: EXAM GENERAL: Patient appears comfortable and well. EYES: No scleral icterus. ENT: Tympanic membranes and oropharynx normal. THYROID: no thyroid nodules or thyromegaly. LYMPH: No supraclavicular or cervical lymphadenopathy. SKIN: Visible skin seen during exam normal or with benign process only. EXT: Trace lower extremity edema HEART: Irregularly irregular rhythm no obvious rubs clicks gallops or murmurs. LUNGS: Clear to auscultation bilaterally with no crackles or wheezes. ABD: Soft, non tender, non distended. PSYCH: Good eye contact, speech is not pressured. Const: Vital Signs, click to edit/add: Vital Signs - 24 hr 04/24/24 13:14 Temperature 97.9 F Pulse Rate [Pulse Oximeter] 103 H Respiratory Rate 16 Blood Pressure [Ri ght Upper Arm] 132/73 Pulse Oximetry 96 Oxygen Delivery Me thod Room Air Course Course ED Course: EKG troponin CBC basic metabolic panel chest x-ray pending. Vital Signs Vital signs: Initial Vital Signs Temperature 97.9 F 04/24/24 13:14 Temperature Source Temporal Artery Scan 04/24/24 13:14 Pulse Rate 103 H 04/24/24 13:14 Respiratory Rate 16 04/24/24 13:14 Blood Pressure 132/73 04/24/24 13:14 Blood Pressure Mean 92 04/24/24 13:14 Blood Pressure Position Sitting 04/24/24 13:14 Pulse Oximetry 96 04/24/24 13:14 Oxygen Delivery Method Room Air 04/24/24 13:14 Vital Signs Temperature 97.9 F 04/24/24 13:14 Pulse Rate 103 H 04/24/24 13:14 Respiratory Rate 16 04/24/24 13:14 Blood Pressure 132/73 04/24/24 13:14 Pulse Oximetry 96 04/24/24 13:14 Oxygen Delivery Method Room Air 04/24/24 13:14 Temperature 97.9 F 04/24/24 13:14 Pulse Rate 103 H 04/24/24 13:14 Respiratory Rate 16 04/24/24 13:14 Blood Pressure 132/73 04/24/24 13:14 Pulse Oximetry 96 04/24/24 13:14 Oxygen Delivery Method Room Air 04/24/24 13:14 Medications Administered Medications: Discontinued Medications Generic Name Dose Route Start Last Admin Trade Name Freq PRN Reason Stop Dose Admin Metoprolol Tartrate 5 mg 04/24/24 13:44 04/24/24 13:56 Metoprolol Tartrate 1 Mg/Ml Inj IVP 04/24/24 13:45 5 mg ONCE ONE Administration MDM - Arrhythmia/Palpitations MDM Narrative Medical decision making narrative: Patient is a 73-year-old woman who comes in in no distress with atrial fibrillation. She has a known history of atrial fibrillation has actually failed outpatient cardioversion on 1 previous episode. She has been in sinus rhythm for quite some time but today developed the abrupt onset of irregular pulse. She had no neurologic symptoms no fevers no chills no chest pain no shortness of breath. Rate is 101 110 beats per minute. She does take Toprol-XL 100 mg daily as well as metoprolol 12.5 mg p.r.n. palpitations. She has a unremarkable workup here in the emergency room. I did give her 5 mg of IV Lopressor which we did seem to change her rate. I do think that she will need further attention but I do not believe we should try to cardiovert her today although she is anticoagulated his she has failed cardioversion in similar circumstances before. I did ask her to increase her Toprol-XL at home to 150 mg daily continues metoprolol p.r.n.. She does have trace amount of lower extremity edema which I am concerned about. I did recommend she contact her primary physician on Friday to ask her further cardiology consultation. She will return to the emergency room if symptoms persist. She does have atrial fibrillation on today's EKG as well. Lab Data Labs: Lab Results 04/24/24 Range/Units 13:45 WBC 7.59 (4.50-11.00) K/uL RBC 5.13 (4.00-5.20) m/uL Hgb 15.8 (12.0-16.0) gm/dL Hct 48.3 (33.0-51.0) % MCV 94 (80-100) fL MCH 31 (26-34) pg MCHC 33 (32-36) gm/dL RDW Coeff of [place] 13.9 (11.5-15.5) % Plt Count 187 (140-440) K/uL Neut % (Auto) 69.7 (42.0-72.0) % Lymph % (Auto) 24.8 (20-44) % [place] % (Auto) 4.6 (0.0-11.0) % Eos % (Auto) 0.4 (0.0-7.0) % Baso % (Auto) 0.4 (0.0-3.0) % Neut # (Auto) 5.29 (1.7-7.0) K/uL Lymph # (Auto) 1.88 (0.90-2.90) K/uL [place] # (Auto) 0.30 (0.00-0.90) K/UL Eos # (Auto) 0.03 (0.00-0.50) K/uL Baso # (Auto) 0.03 (0.00-0.30) K/uL Abs Immat Gran (auto) 0.01 (0.00-0.30) K/uL Imm/Tot Granulo (auto) 0.1 % Sodium 139 (135-149) mmol/L Potassium 4.8 (3.6-5.1) mmol/L Chloride 103 (96-114) mmol/L Carbon Dioxide 29 (20-32) mmol/L Anion Gap 7 (7-15) mEq/L BUN 37 H (7-30) mg/dL Creatinine 1.1 (0.5-1.5) mg/dL Estimated Creat Clear 35.49 Estimated GFR 53 ml/min Glucose 118 H (60-115) mg/dL Calcium 10.7 H (8.4-10.6) mg/dL Troponin I < 0.01 L (0.01-0.04) ng/mL Discharge Plan Discharge Clinical Impression: Atrial fibrillation Patient Disposition: Home, Self-Care Condition: Stable Instructions: A-fib (Atrial Fibrillation) (ED) Additional Instructions: Increase Toprol XL to 150 mg daily Continue as needed metoprolol Continue anticoagulation with Eliquis Follow-up with your doctor next week to arrange cardiology consultation. Activity Level: No Restrictions Discharge Diet: Regular Prescriptions: No Action fluticasone propionate 50 mcg/actuation spray,suspension 2 spray intranasal DAILY levothyroxine 125 mcg tablet 125 mcg PO DAILY@07 lorazepam 0.5 mg tablet 0.5 mg PO HS PRN multivitamin Tablet 1 tab PO DAILY oxybutynin chloride 10 mg tablet extended release 24hr 10 mg PO DAILY omeprazole 20 mg capsule,delayed release(DR/EC) 20 mg PO DAILY amlodipine 2.5 mg tablet 10 mg PO DAILY simvastatin 20 mg tablet 20 mg PO QPM Eliquis 5 mg Tablet 5 mg PO BID Qty: 60 0RF colchicine 0.6 mg tablet 0.6 mg PO BID PRNQty: 60 0RF Rx Instructions: as needed for arthritis pain metoprolol tartrate 25 mg tablet 12.5 mg PO DAILY PRNQty: 30 0RF Rx Instructions: TAKE ONCE NEEDED FOR FLARE OF AFIB WITH hr >100 gabapentin 100 mg capsule 100 mg PO HS Patient Comments: 1-2 tabs at HS for pain and sleep prednisone 5 mg tablet 5 mg PO DAILY mirabegron [Myrbetriq] 50 mg tablet extended release 24 hr 50 mg PO DAILY fluticasone propionate [24 Hour Allergy Relief] 50 mcg/actuation spray,suspension 2 spray intranasal DAILY PRN Rx Instructions: administer into each nostril metoprolol succinate 50 mg Tablet Extended Release 24 Hr 100 mg PO DAILY melatonin 5 mg tablet 10 mg PO HS PRN (Reason: sleep) Follow Up/Referrals: Jolsyn Turcios MD [Primary Care Provider] - Stand Alone Forms: [employer] Info Instructions
[2024-04-24] MEDS: METOPROLOL TARTRATE 1 MG/ML inj 5 MG IVP (13:56)
[2024-04-24 14:06] LABS: Basophils Absolute Auto 0.03 K/uL (0.00-0.30); Basophils Percent Auto 0.4 % (0.0-3.0); Eosinophils Absolute Auto 0.03 K/uL (0.00-0.50); Eosinophils Percent Auto 0.4 % (0.0-7.0); Hematocrit 48.3 % (33.0-51.0); Hemoglobin* 15.8 gm/dL (12.0-16.0); Immature Granulocytes Abs Auto 0.01 K/uL (0.00-0.30); Immature Granulocytes Pct Auto 0.1 %; Lymphocytes Absolute Auto 1.88 K/uL (0.90-2.90); Lymphocytes Percent Auto 24.8 % (20-44); Mean Corpuscular HGB Conc 33 gm/dL (32-36); Mean Corpuscular Hemoglobin 31 pg (26-34); Mean Corpuscular Volume 94 fL (80-100); Monocytes Percent Auto 4.6 % (0.0-11.0); Neutrophils Absolute Auto 5.29 K/uL (1.7-7.0); Neutrophils Percent Auto 69.7 % (42.0-72.0); Platelet Count* 187 K/uL (140-440); RDW Coefficient of Variation % 13.9 % (11.5-15.5); Red Blood Count 5.13 m/uL (4.00-5.20); White Blood Count* 7.59 K/uL (4.50-11.00)
[2024-04-24 14:09] LABS: Chloride* 103 mmol/L (96-114); Potassium* 4.8 mmol/L (3.6-5.1); Sodium* 139 mmol/L (135-149)
[2024-04-24 14:12] LABS: Anion Gap 7 mEq/L (7-15); Blood Urea Nitrogen* 37 mg/dL (7-30); Carbon Dioxide* 29 mmol/L (20-32); Creatinine* 1.1 mg/dL (0.5-1.5); Est. Creatinine Clearance* 35.49; Estimated Glomerular Filt Rate 53 ml/min; Slide Review Reflex No
[2024-04-24 14:13] LABS: Calcium* 10.7 mg/dL (8.4-10.6); Glucose* 118 mg/dL (60-115)
[2024-04-24 14:25] LABS: Troponin I* < 0.01 ng/mL (0.01-0.04)
[2024-04-24 14:39] VITALS: PULSE 110; RESP 18; O2SAT 97
== END 2024-04-24 14:54 | disposition home or self-care (01) ==
PROVIDERS: Emergency Provider Internal Medicine; PCP Family Medicine
DX: I48.91 Unspecified atrial fibrillation (principal)
CPT/HCPCS: 36415; 80048; 84484; 85025; 93005; 96374; 99283; 99284

== ENCOUNTER 2024-05-24 10:00 | Outpatient (RCR) | payer MEDICARE, OTHER, SELFPAY | END 2024-07-16 09:46 | disposition home or self-care (01) | PROVIDERS: PCP Family Medicine; Visit Provider Family Medicine | DX: M25.561 Pain in right knee (principal); G89.29 Other chronic pain; R26.9 Unspecified abnormalities of gait and mobility; R26.81 Unsteadiness on feet; R53.1 Weakness; Z51.89 Encounter for other specified aftercare | CPT/HCPCS: 97110; 97161 ==

== ENCOUNTER 2024-07-08 06:58 | Day surgery (SDC) | payer MEDICARE, OTHER, SELFPAY ==
[2024-07-08] VITALS (25 sets, daily range): BP systolic 92–161; BP diastolic 55–82; PULSE 42–74; RESP 16–20; TEMP 35.3–36.4; O2SAT 90–100; BMI 36.2
[2024-07-08] MEDS: OXYCODONE (CR) 10 MG TAB.ER.12H PO (08:19)
[2024-07-08] MEDS: ACETAMINOPHEN 500 MG TABLET 1000 MG PO ×3 (08:19→20:31)
[2024-07-08] MEDS: LACTATED RINGERS 1000 ML 1,000 ML 75 ML IV ×2 (08:20→18:00)
[2024-07-08] MEDS: MIDAZOLAM HCL 1 MG/ML inj IVP (08:27)
[2024-07-08] MEDS: fentaNYL 100 MCG/2 ML inj IVP (08:27)
--- NOTE | 2024-07-08 08:49 | SUR.PREOP ---
TIME?OUT:?0825, right hip PT/RN/MDA?VERIFICATION?OF?SURGICAL?SITE,?PROCEDURE,?AND?CONSENT OBTAINED?PRIOR?TO?INVASIVE?PROCEDURE.
--- NOTE | 2024-07-08 08:55 | W.PM.NB ---
Nerve Block Nerve Block Time Seen by Provider: 08:15 Date Seen: 07/08/24 Type of block requested by surgeon for post-operative analgesia: LIZ/LFCN Side: right Time out performed: Yes Verification of patient name: Yes Verification of date of : Yes Site marking: site marked Name of person performing procedure: Clark Martinez Assistants, if any: remigio cast Continuous monitoring Was continuous monitoring of O2 sat, B/P, cardiac care unit nurse, recorded every 15 minutes?: Yes Procedure Checklist: sterile prep, needles and gloves Ultrasound guided. Images saved: Yes Medications given in 5ml increments after negative aspiration: Ropivicaine %: 0.5 mL: 30 Needle gauge: 21 Decadron (mg): 10 Precedex (mcg): 25 Patient tolerated procedure well: Yes Additional comments: Injected in 5mL increments after negative aspiration Block Charges Block Charge (with Pro Fee): Other Periph Nerve Block Use of Ultrasound Machine for Block: Yes- US Guidance/pain block
--- NOTE | 2024-07-08 09:00 | CRLHL7_ITS ---
For Patients: As a result of the Cures Act, medical imaging exams and procedure reports are released immediately into your electronic medical record. You may view this report before your referring provider. If you have questions, please contact your health care provider. Indication: Hip replacement surgery Technique: AP hip fluoroscopic image. Fluoroscopy time 51.0 seconds. Findings/Impression: Hardware from a right total hip arthroplasty is in satisfactory position. Dictated by Justo Nickerson MD @ 07/09/2024 9:31:57 AM (Electronically Signed)
[2024-07-08] MEDS: CEFAZOLIN 2 GM INJ IVP (09:10)
[2024-07-08] MEDS: TRANEXAMIC ACID 100 MG/ML INJ 1000 MG IV (09:15)
--- NOTE | 2024-07-08 10:15 | CRLHL7_ITS ---
For Patients: As a result of the Cures Act, medical imaging exams and procedure reports are released immediately into your electronic medical record. You may view this report before your referring provider. If you have questions, please contact your health care provider. Indication: Postop right hip Technique: AP hip centered pelvis and lateral view right hip Findings/Impression: Hardware from a right total hip arthroplasty is in satisfactory position. Bone alignment is normal. No sign of acute fracture. Postop changes are within normal limits. Dictated by Justo Nickerson MD @ 07/09/2024 9:32:51 AM (Electronically Signed)
--- NOTE | 2024-07-08 10:19 | PM.ORPRC ---
Procedure Note Date of procedure: 07/08/24 Procedure: PREOPERATIVE DIAGNOSIS: Right hip osteoarthritis POSTOPERATIVE DIAGNOSIS: Right hip osteoarthritis NAME OF OPERATION: Right total hip arthroplasty SURGEON: Alexi Lomas MD PURCHASING ADMINISTRATOR: Catalina Holland PA-C, GHASSAN Dickinson IMPLANTS: 1. [employer] [place] # 48 sector ingrowth cup 2. 32 x 48 +4 neutral polyethylene 3. Actis # 5 standard collared ingrowth stem 4. 32 + 1 ceramic femoral head ANESTHESIA: General ESTIMATED BLOOD LOSS: 400 cc COMPLICATIONS: None SPECIMENS: None DRAINS: None PREOPERATIVE ANTIBIOTICS: Ancef 2 grams INDICATIONS: The patient is a -year-old with a longstanding history of severe, unrelenting right hip pain secondary to end-stage right hip osteoarthritis. Despite appropriate nonoperative management, including activity modification, use of an assist device, anti-inflammatories, [id number] pain medication, physical therapy and injections, they continue to have pain and disability. Operative intervention was offered. The risks, benefits and expected outcomes were discussed in detail. These included but were not limited to: Infection, bleeding, injury to blood vessel or nerve, venous thromboembolism. All questions were answered to their satisfaction. Use of an family and divorce legal assistant was necessary throughout the case for patient positioning and safety, soft tissue retraction and closure. PROCEDURE: The patient was placed supine on the [place] table. General anesthesia was administered. The family and divorce legal assistant made sure the patient was properly positioned. The right hip was prepped and draped in the usual sterile fashion. The image intensifier was brought in for a perfect AP pelvis and a perfect double tear drop AP view of each hip which were used for intraoperative templating with our fluoroscopic guide. An oblique incision was made 3 cm distal and 3 cm lateral to the anterior superior iliac spine. The family and divorce legal assistant retracted the soft tissues to protect them. Subcutaneous dissection was taken with electrocautery to the superficial fascia. The fascia was divided in line with the incision. Blunt dissection was carried medially to the tensor fascia jackie and sartorius interval. Deep dissection was carried with electrocautery. The circumflex vessels were cauterized and divided. The capsule was exposed and then divided in a T-fashion, tagged with #1 Ethibond sutures. Retractors were placed in the joint, held by the family and divorce legal assistant. The corkscrew was placed in the femoral head. The neck cut was made in the subcapital region. We made a second neck cut more distal. The napkin ring of bone was removed. The femoral head was removed intact. Acetabular retractors were placed, held by the family and divorce legal assistant. The labrum was sharply debrided. The capsule was released. The 43 mm reamer was used to the true medial wall. We then enlarged in 2 mm increments using the image intensifier for our reamer placement. We impacted the cup which had excellent purchase. We placed the polyethylene. Attention was then turned to the proximal femur. The limb was placed in 140 degrees of external rotation, maximum extension and adduction. A significant amount of time was spent releasing the capsule to allow us to deliver the femur into the wound and complete the femoral side safely. Retractors were held by the family and divorce legal assistant throughout the femoral preparation. The box worker and canal finder were used. Broaches were used to a stable size. The calcar reamer was used. Trial components were placed. The hip was reduced and was found to be stable with appropriate soft tissue tension. Length and offset had been nicely restored using the image intensifier and our fluoroscopic guide. Trial components were removed. The stem was impacted. We placed the femoral head. Again, the hip was reduced and was found to be stable with appropriate soft tissue tension. Length and offset had been nicely restored. The family and divorce legal assistant did a three minute dilute Betadine solution soak. The family and divorce legal assistant irrigated the wound with 3 liters of normal saline via pulse lavage. The family and divorce legal assistant repaired the anterior capsule with a #1 Vicryl and our previously placed Ethibond sutures. The family and divorce legal assistant closed the fascia over the tensor fascia jackie with a #1 PDO Stratafix, subcutaneous tissues with 2-0 Vicryl, skin with a running 3-0 Stratafix and glue. A dry dressing was applied by the family and divorce legal assistant. Sponge and needle counts were correct x 2. The patient tolerated the procedure well; there were no apparent complications. They were awakened and extubated in the operating room, sent to the Post-Anesthesia Care Unit in satisfactory condition. PLAN: 1. The patient will be mobilized with physical therapy, weight-bearing as tolerates 2. Xarelto x 5 days then aspirin x 30 days will be used for DVT prophylaxis 3. The patient will be discharged once medically appropriate
[2024-07-08] MEDS: LACTATED RINGERS 500 ML 500 ML 125 ML IV (10:30)
--- NOTE | 2024-07-08 11:09 | P.ANES_ITS ---
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
[2024-07-08] MEDS: fentaNYL 100 MCG/2 ML inj 50 MCG IVP ×3 (11:20→11:30)
[2024-07-08] MEDS: HYDROmorphone 0.5 mg/0.5 ml inj IVP (11:35)
--- NOTE | 2024-07-08 12:05 | P.IMCN_ITS ---
Date of Consult Consult date: 07/08/24 Requesting Physician: Orthopedics Primary Care Provider: Joslyn Turcios MD Consult Narrative Reason for consult: Medical management of comorbidities Narrative: Jennifer Castle is a 73 year old female who presented to the hospital today for an elective R NINA with Dr. Lomas of Orthopedic Surgery. There were no surgical or anesthetic complications noted during procedure. Patient's H&P reviewed, PCP is Dr. Turcios. Past medical history significant for: hypothyroidism, hyperlipidemia, chronic arthritis pain (on BID Colchicine and 5mg of Prednisone daily), anxiety, essential HTN, paroxysmal atrial fibrillation (anticoagulated on Eliquis). She's on a daily PPI. Postoperative plan: Home with son. Upon arrival to the floor postoperatively, patient was feeling quite dyspnea. Vital signs were stable and she was 98% on room air. In the PACU, she received 3 doses of IV fentanyl followed by 0.5 mg of IV Dilaudid. During evaluation, she started to feel better and by the end of our interview, was no longer feeling dyspneic. Review of Systems Status of ROS: Reports: 10 or more systems reviewed and unremarkable except as noted in History and below [facility] Medical History (Updated 07/08/24 @ 12:48 by Laura Estrada MD) Paroxysmal atrial fibrillation ?I48.0 - Paroxysmal atrial fibrillation (ICD-10) Health care directive on file ?Z78.9 - Other specified health status (ICD-10) Depression ?F32.A - Depression, unspecified (ICD-10) Pseudogout ?M11.20 - Other chondrocalcinosis, unspecified site (ICD-10) Generalized anxiety disorder ?F41.1 - Generalized anxiety disorder (ICD-10) History of breast cancer ?Z85.3 - Personal history of malignant neoplasm of breast (ICD-10) Hyperlipidemia ?E78.5 - Hyperlipidemia, unspecified (ICD-10) Hypothyroidism ?E03.9 - Hypothyroidism, unspecified (ICD-10) Surgical History (Updated 07/08/24 @ 12:45 by Laura Estrada MD) S/P hip replacement ?Z96.649 - Presence of unspecified artificial hip joint (ICD-10) History of tonsillectomy ?Z90.89 - Acquired absence of other organs (ICD-10) History of hysterectomy (1997) ?Z90.710 - Acquired absence of both cervix and uterus (ICD-10) History of cholecystectomy ?Z90.49 - Acquired absence of other specified parts of digestive tract (ICD- 10) Previous section ?Z98.891 - History of uterine scar from previous surgery (ICD-10) History of bladder repair surgery ?Z98.890 - Other specified postprocedural states (ICD-10) Status post bilateral mastectomy ?Z90.13 - Acquired absence of bilateral breasts and nipples (ICD-10) 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) ?Z96.651 - Presence of right artificial knee joint (ICD-10) Social History What is your current living situation?: I presently have a place to live Problems where you live: no known problems Problems where you live details: N/A In the past 12 months, utilities in danger of being shut off: no In past 12 months, lack of transportation kept you from medical appts, meetings, work, or getting things needed for daily living: no In the past 12 mos, have been you worried that your food would run out before you had money to buy more?: often true In the past 12 mos, the food you bought just didn't last and you didn't have money to buy more?: often true Highest level of school completed/degree received: decline to answer Smoking Status: Never smoker Second hand tobacco smoke exposure: No How often do you have a drink containing alcohol: monthly or less Alcohol type: wine Alcohol type details: pt states 2 glasses of wine a year How many standard drinks containing alcohol do you have on a typical day: 1 or 2 How often do you have six or more drinks on one occasion: Less than monthly AUDIT-C Alcohol total score: 2 Non-prescribed substance use: denies use Caffeine: Yes (couple cans Mtn Dew daily) How often does anyone, including family, friends and others, physically hurt you : never How often does anyone, including family, friends and others, insult or talk down to you: never How often does anyone, including family, friends and others, threaten you with harm: never How often does anyone, including family, friends and others, scream or curse at you: never Gender Identity: female service: No Health Related Social Needs: food insecurity (Z59.41) Meds Home Medications and Allergies Home Medications ?Medication ?Instructions ?Recorded ?Confirmed ?Type levothyroxine 125 mcg tablet 125 mcg PO DAILY@07 05/10/22 07/08/24 History multivitamin 1 tab PO DAILY 05/10/22 07/08/24 History omeprazole 20 mg capsule,delayed 20 mg PO DAILY 10/21/23 07/08/24 History release fluticasone propionate 50 2 spray intranasal DAILY PRN 04/24/24 07/08/24 History mcg/actuation nasal spray,suspension (24 Hour Allergy Relief) gabapentin 100 mg capsule 100 - 200 mg PO HS 04/24/24 07/08/24 History melatonin 5 mg tablet 10 mg PO HS PRN sleep 04/24/24 07/08/24 History mirabegron 50 mg tablet,extended 50 mg PO DAILY 04/24/24 07/08/24 History release 24 hr (Myrbetriq) prednisone 5 mg tablet 5 mg PO DAILY 04/24/24 07/08/24 History amlodipine 10 mg tablet 10 mg PO DAILY 05/24/24 07/08/24 History metoprolol succinate 100 mg 150 mg PO DAILY 05/24/24 07/08/24 History tablet,extended release 24 hr acetaminophen 325 mg tablet 650 mg PO Q6H PRN 07/08/24 07/08/24 History metoprolol tartrate 25 mg tablet 25 mg PO DAILY PRN 07/08/24 07/08/24 History Allergies Allergy/AdvReac Type Severity Reaction Status Date / Time naproxen Allergy Hives Verified 07/08/24 07:17 morphine AdvReac Vomiting Verified 07/08/24 07:17 Exam Narrative: Exam Narrative: GEN: Alert and oriented, answering questions appropriately HEENT: EOMIs bilaterally, no scleral icterus CV: Sinus bradycardia without concerning murmurs R: LCTA bilaterally without concerning wheezing, no tachypnea. Exam reassuring, even when patient was feeling dyspneic Skin: No concerning skin lesions or rashes on exposed skin Neuro: Nonfocal Psych: Appropriate Const: Vital Signs, click to edit/add: Vital Signs - 24 hr 07/08/24 07:31 07/08/24 08:27 07/08/24 08:35 Temperature 97.5 F L Pulse Rate 74 68 71 Respiratory Rate 20 20 20 Blood Pressure 161/81 H 158/82 H 141/80 H Pulse Oximetry 94 99 99 Oxygen Delivery Me thod Room Air OxyMask OxyMask Oxygen Flow Rate 10 10 07/08/24 11:05 07/08/24 11:10 07/08/24 11:15 Temperature 96.4 F L Pulse Rate 51 L 45 L 45 L Respiratory Rate 16 16 16 Blood Pressure 100/63 93/56 L 92/55 L Pulse Oximetry 90 98 97 Oxygen Delivery Me thod Room Air OxyMask OxyMask Oxygen Flow Rate 10 10 07/08/24 11:20 07/08/24 11:25 07/08/24 11:30 Temperature Pulse Rate 48 L 55 L 54 L Respiratory Rate 16 16 16 Blood Pressure 96/58 L 100/61 108/62 Pulse Oximetry 99 100 99 Oxygen Delivery Me thod OxyMask OxyMask OxyMask Oxygen Flow Rate 10 10 10 07/08/24 11:35 07/08/24 11:40 07/08/24 11:45 Temperature 96.8 F L Pulse Rate 59 L 53 L 50 L Respiratory Rate 16 16 16 Blood Pressure 122/71 123/71 127/72 Pulse Oximetry 100 100 99 Oxygen Delivery Me thod OxyMask OxyMask Room Air Oxygen Flow Rate 10 10 Assessment and Plan Assessment and plan (1) S/P hip replacement: Problem comment: - R NINA, Dr. Lomas, 07/08/24 Status: Acute (2) Pseudogout: Problem comment: - chronic pain as a result, managed on 0.6mg Colchicine BID + 5mg of Prednisone daily (also on PPI) - sees Rheumatology as an outpatient Status: Acute (3) Paroxysmal atrial fibrillation: Problem comment: - sinus rhythm at this time - anticoagulated on Eliquis - on PPI Status: Acute (4) Hyperlipidemia: Problem comment: - continue statin Status: Acute (5) Hypothyroidism: Problem comment: - Continue levothyroxine, outpatient TSH wnl Status: Acute Plan - attempt primary pain control with oral medications (vomits with Morphine, felt dyspneic after Dilaudid - but received 0.5mg dose, will attempt 0.2mg dose) - continue Eliquis for ppx - anticipate routine postoperative course
[2024-07-08] MEDS: CEFAZOLIN 2 GM in 0.9 % SODIUM CHLORIDE Mini-bag 100 ML IVPB ×2 (15:02→23:59)
[2024-07-08] MEDS: OXYCODONE 5 MG TABLET PO ×2 (15:16→20:32)
[2024-07-08] MEDS: GABAPENTIN 100 MG CAPSULE PO (20:31)
[2024-07-08] MEDS: SENNOSIDES 1 TAB TABLET 2 TAB PO (20:31)
[2024-07-08] MEDS: APIXABAN 5 MG TABLET PO (20:35)
[2024-07-09] MEDS: ACETAMINOPHEN 500 MG TABLET 1000 MG PO ×2 (02:51→08:29)
[2024-07-09 02:54] VITALS: BP 145/73; PULSE 69; RESP 18; TEMP 36.6; O2SAT 94
[2024-07-09] MEDS: OXYCODONE 5 MG TABLET PO ×3 (03:11→08:30)
--- NOTE | 2024-07-09 06:06 | PC.NURSE ---
End of shift note : Pt alert & oriented x 4 and able to make needs known. She is transferring/ambulating with assist of 1 using FWW and gait belt. Dressing to R hip noted to be C/D/I upon inspection. SCDs worn to bilateral feet. CMS to RLE intact. Pt has been afebrile and on RA throughout the shift with no N/V noted. Pt requested PRN Oxycodone throughout the shift for 4-6/10 R hip pain unrelieved by rest, repositioning and ice. Pt continent of bladder. IV to R hand patent. Bed alarm on, call light within reach. Pt requests to take gripper socks off when in bed though agreeable to wearing when out of bed.
[2024-07-09] MEDS: OMEPRAZOLE 20 MG CAPSULE DR PO (06:10)
[2024-07-09] MEDS: LEVOTHYROXINE 125 MCG TABLET PO (06:11)
[2024-07-09 07:10] LABS: Basophils Percent Auto 0.1 % (0.0-3.0); Hematocrit 40.6 % (33.0-51.0); Hemoglobin* 13.4 gm/dL (12.0-16.0); Immature Granulocytes Pct Auto 0.2 %; Lymphocytes Percent Auto 9.9 % (20-44); Mean Corpuscular HGB Conc 33 gm/dL (32-36); Mean Corpuscular Hemoglobin 32 pg (26-34); Mean Corpuscular Volume 97 fL (80-100); Monocytes Percent Auto 7.3 % (0.0-11.0); Neutrophils Percent Auto 82.5 % (42.0-72.0); Platelet Count* 202 K/uL (140-440); RDW Coefficient of Variation % 12.8 % (11.5-15.5)
[2024-07-09 07:12] LABS: Slide Review Reflex No
[2024-07-09 07:14] LABS: Potassium* 4.3 mmol/L (3.6-5.1); Sodium* 139 mmol/L (135-149)
[2024-07-09 07:17] LABS: Blood Urea Nitrogen* 28 mg/dL (7-30); Creatinine* 0.9 mg/dL (0.5-1.5); Est. Creatinine Clearance* 39.04; Estimated Glomerular Filt Rate 67 ml/min
[2024-07-09 07:33] VITALS: BP 150/65; PULSE 55; RESP 18; TEMP 36.6; O2SAT 97
[2024-07-09] MEDS: SENNOSIDES 1 TAB TABLET 2 TAB PO (08:29)
[2024-07-09] MEDS: AMLODIPINE 10 MG TABLET PO (08:29)
[2024-07-09] MEDS: APIXABAN 5 MG TABLET PO (08:29)
[2024-07-09] MEDS: METOPROLOL SUCCINATE (XL) 100 MG TAB 150 MG PO (08:30)
[2024-07-09] MEDS: predniSONE 5 MG TABLET PO (08:30)
--- NOTE | 2024-07-09 09:32 | PM.ORPN ---
Subjective Subjective Time Seen by Provider: 07:15 Date Seen: 07/09/24 Principal diagnosis: Status post right hip replacement Interval history: Elham did not get much sleep last night, however she states this is normal for her. She has had discomfort. Ortho Exam Narrative Exam Narrative: Examination of the right hip shows the dressing is in place. She has tenderness about the thigh with light palpation. Edema is present and is mild. CMS intact right lower extremity. Calf is soft and nontender. There is no erythema or warmth or sign of infection. Const Vital Signs, click to edit/add: Vital Signs - 24 hr 07/08/24 11:05 07/08/24 11:10 07/08/24 11:15 Temperature 96.4 F L Pulse Rate 51 L 45 L 45 L Pulse Rate [Left Pulse Oximeter] Respiratory Rate 16 16 16 Blood Pressure 100/63 93/56 L 92/55 L Blood Pressure [Right Arm] Pulse Oximetry 90 98 97 Oxygen Delivery Method Room Air OxyMask OxyMask Oxygen Flow Rate 10 10 07/08/24 11:20 07/08/24 11:25 07/08/24 11:30 Temperature Pulse Rate 48 L 55 L 54 L Pulse Rate [Left Pulse Oximeter] Respiratory Rate 16 16 16 Blood Pressure 96/58 L 100/61 108/62 Blood Pressure [Right Arm] Pulse Oximetry 99 100 99 Oxygen Delivery Method OxyMask OxyMask OxyMask Oxygen Flow Rate 10 10 10 07/08/24 11:35 07/08/24 11:40 07/08/24 11:45 Temperature 96.8 F L Pulse Rate 59 L 53 L 50 L Pulse Rate [Left Pulse Oximeter] Respiratory Rate 16 16 16 Blood Pressure 122/71 123/71 127/72 Blood Pressure [Right Arm] Pulse Oximetry 100 100 99 Oxygen Delivery Method OxyMask OxyMask Room Air Oxygen Flow Rate 10 10 07/08/24 12:00 07/08/24 12:15 07/08/24 12:30 Temperature 95.6 F L 95.7 F L 96.1 F L Pulse Rate 49 L 51 L 49 L Pulse Rate [Left Pulse Oximeter] Respiratory Rate 16 16 16 Blood Pressure 115/68 114/65 110/61 Blood Pressure [Right Arm] Pulse Oximetry 98 98 95 Oxygen Delivery Method Room Air Room Air Room Air Oxygen Flow Rate 98 95 07/08/24 12:45 07/08/24 13:00 07/08/24 13:30 Temperature 96.0 F L 96.5 F L Pulse Rate 47 L 42 L 50 L Pulse Rate [Left Pulse Oximeter] Respiratory Rate 16 16 16 Blood Pressure 98/60 92/64 107/62 Blood Pressure [Right Arm] Pulse Oximetry 95 95 97 Oxygen Delivery Method Room Air Room Air Room Air Oxygen Flow Rate 07/08/24 14:00 07/08/24 15:00 07/08/24 15:00 Temperature 96.7 F L Pulse Rate 49 L 49 L Pulse Rate [Left Pulse Oximeter] Respiratory Rate 16 16 16 Blood Pressure 100/60 123/72 Blood Pressure [Right Arm] Pulse Oximetry 95 98 98 Oxygen Delivery Method Room Air Room Air Room Air Oxygen Flow Rate 97 07/08/24 16:00 07/08/24 17:00 07/08/24 18:00 Temperature 96.8 F L 97.0 F L Pulse Rate 42 L 54 L 55 L Pulse Rate [Left Pulse Oximeter] Respiratory Rate 16 16 16 Blood Pressure 122/76 132/76 112/67 Blood Pressure [Right Arm] Pulse Oximetry 96 98 95 Oxygen Delivery Method Room Air Room Air Room Air Oxygen Flow Rate 07/08/24 20:02 07/08/24 23:00 07/08/24 23:00 Temperature 96.8 F L 97.2 F L Pulse Rate Pulse Rate [Left Pulse Oximeter] 59 L 72 Respiratory Rate 16 18 18 Blood Pressure Blood Pressure [Right Arm] 112/72 131/76 Pulse Oximetry 97 97 97 Oxygen Delivery Method Room Air Room Air Room Air Oxygen Flow Rate 07/08/24 23:00 07/09/24 02:54 07/09/24 07:33 Temperature 97.8 F 97.8 F Pulse Rate Pulse Rate [Left Pulse Oximeter] 72 69 55 L Respiratory Rate 18 18 18 Blood Pressure Blood Pressure [Right Arm] 145/73 H 150/65 H Pulse Oximetry 94 97 Oxygen Delivery Method Room Air Room Air Oxygen Flow Rate 07/09/24 07:33 07/09/24 07:33 Temperature Pulse Rate Pulse Rate [Left Pulse Oximeter] 55 L Respiratory Rate 18 18 Blood Pressure Blood Pressure [Right Arm] Pulse Oximetry 97 Oxygen Delivery Method Room Air Oxygen Flow Rate Assessment and Plan Assessment and plan (1) S/P hip replacement: Problem details: - R NINA, Dr. Lomas, 07/08/24 Status: Acute Assessment and Plan: Plan for discharge is today, and when they meets discharge criteria. DVT prophylaxis upon discharge, she will take her usual dose of Eliquis daily. Remove dressing 1 week. Observe wound and phone Orthopedics with any questions or concerns Use Ice on operative hip unrestricted. Return to clinic in 1 week with PA for a wound check Return to clinic in 6 weeks with surgeon Minimize narcotic use. Wean off and discontinue soon as possible. Activities as tolerated. No strenuous activity. Attend outpt PT She has taken oxycodone in the past without any problems. She has taken it in the hospital without any problems. This has been sent to her pharmacy. Senna has been sent to her pharmacy as well. She has Tylenol on her home list.
--- NOTE | 2024-07-09 10:11 | PC.NURSE ---
Discharge: Patient pleasant and cooperative. Patient vitally stable, lungs clear, BS WNL, IV removed, catheter intact. Patient right hip dressing C/D/I. Patient rates hip pain 5-6/10, 10 mg of oxy given once. Patient tolerating regular diet, and urinating well. Patient signed belongings sheet and discharge form. Patient had no further questions regarding discharge education. Patient left the floor by wheelchair to home with son at 1008.
== END 2024-07-09 10:08 | disposition home or self-care (01) ==
LOC: OR 07:03 → MEDSURG 07:05
PROVIDERS: PCP Family Medicine; Visit Provider Orthopaedic Surgery
PROC: (CPT 27130; principal; 2024-07-08 09:00)
DX: M16.11 Unilateral primary osteoarthritis, right hip (principal); G89.18 Other acute postprocedural pain; I10 Essential (primary) hypertension; I48.0 Paroxysmal atrial fibrillation; Z79.01 Long term (current) use of anticoagulants; E03.9 Hypothyroidism, unspecified; E78.5 Hyperlipidemia, unspecified; F32.A Depression, unspecified; F41.1 Generalized anxiety disorder; Z85.3 Personal history of malignant neoplasm of breast
CPT/HCPCS: 27130; 01214; 36415; 64450; 73501; 76942; 82565; 84132; 84295; 84520; 85025; 86850; 86900; 86901; 97110; 97116; 97161; 97165; 97530; 97535; 99100; A9270; C1776; J0330; J0690; J1100; J1171; J2250; J2405; J2704; J2710; J2795; J3010; J3490; J7120; J7512

== ENCOUNTER 2024-08-05 10:00 | Outpatient (RCR) | payer MEDICARE, OTHER, SELFPAY ==
--- NOTE | 2024-06-03 13:43 | PT.OPEX ---
PT [place] Outpatient Eval PT [facility] Outpatient Eval Start: 06/01/24 09:52 Freq: Status: Active Protocol: Document 06/01/24 15:09 DAGMAR (Rec: 06/01/24 17:45 DAGMAR [id number]) E-signed By Sunday Leger PT Physical Therapy Outpatient Evaluation Insurance Information Insurance Name Medicare B Medical Diagnosis Right hip OA Pre-Op NINA Treating Diagnosis Right hip pain Impaired gait Decreased right hip ROM Referring MD Lomas Subjective Preferred Name Jennifer Subjective Pt. reports longstanding and progressive pain and dysfunction of right LE due to her hip OA. She has a history of right TKA in 2021 along with left knee OA. She lives alone in a single level home that is set up nicely for her on one level. She did well following her TKA 2 years ago. She has a few steps to get into her home with a railing and then everything is on one floor with a walk in shower with raised toilet seat frame. She has been doing therapy which has improved her core, shoulder and LE strength but her right hip continues to worsen with pain and stiffness . Her goal is to be able to walk without assistive device without pain and dysfunction following her hip surgery. PMH includes; A-fib, shoulder OA, right TKA, left knee OA, and depression. She will be having surgery on 07/08/24. Pain Comments Mod/Severe Date of Surgery (If applicable) 07/08/24 Current Work Status Retired Precautions Treatment Precautions/Contraindications A-Fib Assessment Assessment/Impression Objectively, pt. demonstrates moderate deficits in right hip mobility due to OA changes; antalgic gait pattern due to right hip/LE pain and stiffness; functional UE strength with some limited right shoulder ROM due to OA changes; and mod hip flexor weakness and mild hip abductor weakness. She would benefit from skilled therapy for pre- op training and then for post- op therapy following her NINA on 07/08/24. Primary Functional Limitations walking, squatting, household tasks Plan of Care Rehabilitation Potential Excellent Physical Therapy Goals 1. Pt. will be independent with HEP for self maintenance in 8 weeks. 2. Pt. will demonstrate improved hip ROM to functional levels in 8 weeks. 3. Pt. will demonstrate improved hip/gluteal strength in 8 weeks. 4. Pt. will be able to walk without assistive device in 8 weeks. Coordination/Communication With Referral Source Treatment Plan/Direct Interventions Gait Training,Manual Therapy, Neuromuscular Re-ed,Self-Care/ Home Management,Therapeutic Activities,Therapeutic Exercises Frequency/Duration 1 visit before surgery for pre -op NINA eduction and HEP instruction. Re-evaluation after surgery with therapy 2x/week for 8 weeks. Patient Will Be Discharged From Therapy Independent w/HEP, Independently Progressing Evaluation Billing Complexity Low Certification Information Initial Certification Date 06/01/24 Ending Certification Date 08/30/24 Provider Signature Required Yes Provider Signature Shows Agreement With POC & Medical Necessity Physician NPI Number Write NPI# Here Physician Comment/Change : Physician Signature & Date Requested Please Sign/Date Here
--- OUTSIDE RECORDS SUMMARY | 2024-07-15 14:12 | XMS_ITS | Clinical Summary ---
Author Organization [employer] Address [place], [place] [address] Care Team Providers Care Waste Handling Technician Name Role Phone Joslyn Turcios MD Primary Care Provide r Jackie Monique PharmD Unavailable [phone] Allergies Active Allergy Reactions Criticality Noted Date Comments Naproxen Hives 12/26/2006 Morphine Intolerance-Can't Take,Vomiting 12/12 Medications multivitamin (MVI) tablet Take 1 tablet by mouth once daily. Active fluticasone (50 mcg per actuation) nasal solution (FLONASE) Inhale 2 Sprays into both nostrils once daily. 1 Bottle 08/15/19 21 Active Calcium Carbonate-Mag Hydroxid (Rolaids Extra Strength) 675-135 mg chewIndications:His tory of gastroesophageal reflux (GERD) Chew 2 Tablets by mouth each time if needed. 10/09/19 24 Active levothyroxine (SYNTHROID) 125 mcg tabletIndications:H ypothyroidism (acquired) Take 1 Tablet (125 mcg) by mouth before breakfast. 90 Tablet 3 10/09/19 24 Active omeprazole (PRILOSEC) 20 mg Delayed-Release capsuleIndications: History of gastroesophageal reflux (GERD) Take 1 Capsule (20 mg) by mouth once daily before a meal. 90 Capsule 3 10/09/19 24 Active LORazepam (ATIVAN) 0.5 mg tabIndications:Inso mnia, idiopathic Take 1 Tablet (0.5 mg) by mouth at bedtime if needed for Sleep. 60 Tablet 10/09/19 24 Active psyllium powdIndications:Chr onic constipation Mix 1 tsp in liquid then take by mouth once daily if needed for Constipation. 12/19/19 24 Active apixaban (ELIQUIS) 5 mg tabletIndications:R apid atrial fibrillation (HC) Take 1 Tablet (5 mg) by mouth two times daily. 180 Tablet 3 12/30/19 24 Active melatonin 10 mg tabIndications:Inso mnia, idiopathic Take 1 Tablet (10 mg) by mouth at bedtime if needed (Sleep). 02/04/20 24 Active amLODIPine (NORVASC) 10 mg tabletIndications:H ypertension, unspecified type Take 1 Tablet (10 mg) by mouth once daily. 90 Tablet 3 03/10/20 24 Active mirabegron EXTENDED-release (MYRBETRIQ) 50 mg tabletIndications:U rinary urgency Take 1 Tablet (50 mg) by mouth once daily. 90 Tablet 3 03/10/20 24 Active acetaminophen (TYLENOL) 325 mg tabletIndications:P rimary osteoarthritis of both knees Take 2 Tablets (650 mg) by mouth every 6 hours. Max acetaminophen dose: 4000mg in 24 hrs. 03/24/20 24 Active predniSONE (DELTASONE) 5 mg tabletIndications:P seudogout Take 1 Tablet (5 mg) by mouth once daily with a meal. 90 Tablet 3 04/06/20 24 Active gabapentin (NEURONTIN) 100 mg capsuleIndications: Calcium pyrophosphate deposition disease (CPPD) Take 1-2 tablets at bedtime nightly for pain and sleep 180 Capsule 3 04/30/20 24 Active metoprolol tartrate (LOPRESSOR) 25 mg tabletIndications:R apid atrial fibrillation (HC) Take 1 tablet at onset of palpitations with heart rate greater than 110 as needed 30 Tablet 04/30/20 24 Active colchicine 0.6 mg tabletIndications:P rimary osteoarthritis of both knees TAKE ONE TABLET BY MOUTH TWICE A DAY 180 Tablet 3 06/03/20 24 Active metoprolol succinate (Toprol XL) 100 mg Sustained-Release tabletIndications:H ypertension, unspecified type,Rapid atrial fibrillation (HC) Take 1 Tablet (100 mg) by mouth once daily. With 50 mg tablet to equal 150 mg daily 90 Tablet 3 06/03/20 24 Active metoprolol succinate (TOPROL XL) 50 mg sustained-release tabletIndications:H ypertension, unspecified type,Rapid atrial fibrillation (HC) Take 1 Tablet (50 mg) by mouth once daily. With 100 mg tablet to equal 150 mg daily 90 Tablet 3 06/03/20 Active furosemide (LASIX) 20 mg tabletIndications:B ilateral lower extremity edema Take 1 Tablet (20 mg) by mouth once daily in the morning. 10 Tablet 04/06/20 24 2023 Disconti nued(*Pa tient states no longer taking) Active Problems Problem Noted Date Diagnosed Date Atrial fibrillation 12/19/2023 Depression, recurrent 10/09/2023 Obesity, morbid 10/03/2022 Calcium pyrophosphate deposition disease (CPPD) 10/24/2021 Pseudogout 06/19/2021 Goiter 06/19/2021 Elevated creatine kinase 06/19/2021 Adenomatous colon polyp 06/23/2019 Overview (11/20/2023): Colonoscopy 06/2019 polyp, repeat in 5 years Colonoscopy 11/2023 10 mm SSA, repeat in 3 years Generalized anxiety disorder 02/13/2018 Knee osteoarthritis 04/01/2013 Status post bilateral mastectomy 06/15/2010 Breast cancer 03/23/2010 Unspecified hypothyroidism 02/02/2008 Other and unspecified hyperlipidemia 02/02/2008 Exostosis of unspecified site 03/03/2007 Hypopotassemia 01/27/2007 Unspecified essential hypertension 01/27/2007 Encounters Date Type Department Care Team Description 07/08/2024 Orders Only [facility] Scanner 1 scan: (1-Ord) [facility], HIP RT POST OP, 07/08/2024 07/08/2024 Orders Only [facility] Scanner 1 scan: (1-Ord) [facility], RT HIP 1 VIEW, 07/08/2024 07/01/2024 Patient Outreach [facility] Care Management - Care Management Navigation/[facility] [place] [address] Padma Uribe, PharmD Population Health (2023 Medication Adherence-Simvastati n 20mg tablets) 06/28/2024 7:[address] MESSENGER Office Visit [facility] [address] [place] [address] Anh Field, PhD, LP Individual Therapy 06/28/2024 Orders Only [address] [place] [address] Joslyn Turcios MD 1 scan: (1-Ord) [facility]-EKG-12.12.24 06/28/2024 Travel 06/24/2024 9:[address] MESSENGER Office Visit [address] [place] [address] Joslyn Turcios MD Pre-Op Exam (Right total hip 07/08/24 Dr. Lomas) 06/24/2024 Travel 06/21/2024 7:[address] MESSENGER Office Visit [address] [address] Anh Field, PhD, LP Individual Therapy 06/21/2024 Travel 06/14/2024 8:[address] MESSENGER Office Visit [address] [address] Anh Field, PhD, LP Individual Therapy 06/14/2024 Travel 06/04/[address] [address] Joslyn Turcios MD Medication Management (metoprolol succinate (TOPROL XL) 50 mg sustained-release tablet and metoprolol succinate (Toprol XL) 100 mg Sustained-Release tablet ) 06/02/2024 9:[address] MESSENGER Office Visit [address] [address] Anh Field, PhD, LP Individual Therapy 06/02/[address] [address] Joslyn Turcios MD Refill Request (METOPROLOL SUCCINATE ER 100MG TAB - alternate request - pharmacy request two separate rx's totaling 150 mg ) 06/02/2024 Travel 05/30/[address] [address] Joslyn Turcios MD Refill Request (Colchicine) 05/17/2024 7:[address] MESSENGER Office Visit [facility] [address] [facility] [address] Anh Field, PhD, LP Individual Therapy 05/17/2024 Travel 05/10/2024 7:30 AM CDT Office Visit [facility] [address] [place] [address] Anh Field, PhD, LP Individual Therapy 05/10/2024 Travel 05/03/2024 7:30 AM CDT Office Visit [facility] [address] [place] [address] Anh Field, PhD, LP Trmt Plan 05/03/2024 Travel 04/30/2024 10:30 AM CDT Office Visit [facility] [address] [place] [address] Joslyn Turcios MD ER Follow up (04/24/24 A-fib, She notices a gradual increase in her lower extremity edema over the last several weeks but no other up abrupt changes prior to going to ED./ED doc increased her Toprol-XL at home to 150 mg daily continue metoprolol p.r.n../Had celebrated a couple birthdays and had chocolate cake last week.) 04/29/2024 Travel 04/26/2024 7:30 AM CDT Office Visit [facility] [address] [facility] [address] Anh Field, PhD, LP Mental Health Intake 04/26/2024 Telephone [facility] [address] [place] [address] Joslyn Turcios MD Hospital F/U 04/26/2024 Travel 04/24/2024 Nurse Triage [facility] [address] [place] [address] Joslyn Turcios MD Irregular Heart Beat 04/22/2024 Travel from Last 3 Months Immunizations Name Administration Dates Next Due AMB INFLUENZA IIV3 (AGE 65+ YRS) PF (Flu Clinic Only) 04/22/2019,04/06/2018,04/02/2017 AMB Influenza, IIV4 PF (=>6 mos Flulaval,Fluzone Fluarix)(Flu Clinic Only) 04/01/2014 Amb Influenza, Inactivated A IIV4 (Age 65+ Years) Preserv Free 04/05/2020 COVID-19 VACCINE SPIKEVAX (M ODERNA 50MCG/0.5ML) 12YO+ PFS 04/29/2023 COVID-19 vaccine (Moderna 100mcg/0.5mL) PF, MDV 10/11/2021,10/17/2020,09/19/2020 COVID-19 vaccine (Moderna 50mcg/0.5mL) 12YO+ BIVALENT PF, MDV 11/18/2022,04/09/2022 Influenza A (H1N1), Inactivated 07/26/2009 Influenza Virus, Unspecified 03/25/2023, 03/27/2022,03/26/2021,2019 Influenza, High-dose Inactivated 03/16/2024,03/15,04/04/2015 Influenza, IIV3 (Age 6-35 mos) 03/25/2011,2008 Influenza, IIV3 (Age >=3 years) 03/30/2013,04/02,03/25/2011 Influenza, IIV4 04/22/2019, 8,04/02/2017,2015,04/04/2015,04/01/2014,03/30/2013,0 04/02/2012,03/25/2011,07/26/2009, 009 Influenza, Inactivated AIIV4 (Age 65+ Years) Preserv Free 03/25/2023,03/27/2022,03/26/2021 Influenza, Inactivated IIV3 (Age 65+ Years) Preserv Free 04/02/2017 Pneumococcal Poly,23-Valent (Pneumovax) 12/26/2017,02/09/2010 Pneumococcal conj 13-Valent (Prevnar 13) 04/04/2015 Td (Age >=7 Years) 11/26/2016 Td, Preservative Free (age > = 7 Years) 11/26/2016 Tdap 03/08/2011 Zoster (Shingrix-RZV, recombinant) 03/20/2019, Zoster (Zostavax-ZVL, live) 03/08/2011 Family History Medical History Relation Name Comments Hypertension Brother 1 Benitez Hypertension Brother 2 Bradly Hypertension Brother 4 Michaeal Heart Disease Father Denys Thomas Cancer-breast Maternal Aunt 2 Cancer-colon Maternal Grandfather Cancer Maternal Uncle 2 Lung CA Cancer-breast Mother Vanita Thomas Heart Disease Mother Vanita Thomas Osteoporosis Mother Vanita Thomas compression fra cture Other Mother Vanita Thomas Mastocytosis-- anaphylaxis Cancer Other Vanita Thomas Breast in her 8 0s Relation Name Status Comments Brother 1 Benitez Alive Brother 2 Bradly Alive Brother 3 William Alive Brother 4 Georgeaeal Daughter Rachael Alive Father Denys Thomas Alive Maternal Aunt 1 Breast CA Maternal Aunt 2 Maternal Grandfather Maternal Grandmother Maternal Uncle 1 Lung CA Maternal Uncle 2 Mother Vanita Thomas Other Vanita Thomas Paternal Grandfather Paternal Grandmother Son Marixa Alive Social History Tobacco Use Types Packs/Day Years Used Date Smoking Tobacco: Never Smokeless Tobacco: Never Tobacco Cessation:Counseling Given: Yes Alcohol Use Standard Drinks/Week Comments Yes 0 (1 standard drink = 0.6 oz pur e alcohol) glass of wine 4 x year [facility] Utilities Answer Date Recorded Do you have trouble paying f or utilities (for example, heat, electricity, water, phone)? Yes 10/07/2023 PHQ-2 Answer Date Recorded PHQ-2 TOTAL SCORE 2 02/22/2024 Social Connections Answer Date Recorded Do you often feel lonely or isolated from those around you? 0 10/07/2023 Financial Resource Strain Answer Date R ecorded Difficulty of Paying Living Expenses 3 10/07/2023 Difficulty of Paying Living Expenses Not on file 10/07/2023 Food Insecurity Answer Date Recorded Do you worry your food will run out before you are able to buy more? 1 10/07/2023 Transportation Needs Answer Date Record ed Does lack of transportation keep you from medica l appointments? 1 10/07/2023 Does lack of transportation keep you from work, meetings or getting things that you need? 1 10/07/2023 Housing Stability Answer Date Recorded What is your housing situation today? 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 Not on file Not on file Obstetrics History Last Filed Vital Signs Vital Sign Reading Time Taken Comments Blood Pressure 118/68 06/24/2024 9:[address] MESSENGER Pulse 69 06/24/2024 9:[address] MESSENGER Temperature 37.1 C (98.8 F) 02/10/2020 8:07 AM CDT Respiratory Rate 16 11/18/2023 12:10 PM CDT Oxygen Saturation 97% 06/24/2024 9:[address] MESSENGER Inhaled Oxygen Concentration - - Weight 89.8 kg (198 lb) 06/24/2024 9:[address] MESSENGER Height 158.8 cm (5' 2.5) 12/12/2023 10:47 AM CD T Body Mass Index 35.64 12/12/2023 10:47 AM CDT Plan of Treatment Upcoming Encounters Date Type Department Care Team (Late st Contact Info) Description 03/28/2025 8:20 AM CDT Office Visit [facility] [address] [address] [place] Flowers, [address] [place] [address] Health Maintenance Due Date Last Done Comments RSV vaccine for adults or (1 - Risk 60-74 years 1-dose series) 2009 Medicare Wellness for age 65+ 10/09/2024, 10/03/2022, 09/27/2021, Additional history exists BMI (ht and wt on same day) for age 18+ 12/11/2024 12/12/2023, 10/09/2023, 11/15/2021, Additional history exists Depression screening for age 12+ 02/22/2025 02/23/2024, 02/22/2024, 02/19/2024, Additional history exists Colonoscopy through age 75 11/17/202611/17, 11/18/2023, 11/18/2023, Additional history exists Tetanus booster 11/26/2026 11/26/2016, 11/11, 03/08/2011 Lipids for age 45-75 10/05/2028 10/06/2023, 09/30/2022, 09/17/2021, Additional history exists Tdap Completed 03/08/2011 Pneumococcal series for age 50+ Completed 12/26/2017, 04/04/2015, 02/09/2010 Zoster (shingles) series for age 50+ Completed 03/20/2019, 01/07/2019, 03/08/2011 Hepatitis C screening for ag e 18-79 Completed 12/30/2019 DEXA/DXA scan for age 65+ Completed 2023, 11/25/2016, 11/06/2004 COVID-19 vaccine series Completed 03/16/20 24, 12/23/2023, 04/29/2023, Additional history exists Influenza for age 65+ Completed 03/16/2024 , 03/25/2023, 03/25/2023, Additional history exists Goals Goal Patient Goal Type Associated Problems Recent Progress Patient-Stated? Author BLOOD PRESSURE - Maintains BP less than 140/90 Blood Pressure No Brianda Dong LPN Procedures Procedure Name Priority Date/Time Associated Diagnosis Comments SCAN-RADIOLOGY REPORT 07/08/2024 12:[address] MESSENGER SCAN-RADIOLOGY REPORT 07/08/2024 12:[address] MESSENGER EKG 12 LEAD Routine 06/28/2024 10:[address] MESSENGER Preoperative examination Paroxysmal atrial fibrillation (HC) OK READING EKG - NO CHARGE, COMP ONLY Routine 06/28/2024 10:[address] MESSENGER Preoperative examination Paroxysmal atrial fibrillation (HC) CBC WITH AUTO DIFFERENTIAL Routine 06/24/2024 10:[address] MESSENGER Paroxysmal atrial fibrillation (HC) BASIC METABOLIC PANEL Routine 06/24/2024 10:[address] MESSENGER Paroxysmal atrial fibrillation (HC) XR DXA BONE DENSITY 2 SITES AXIAL Routine 12/31/2023 9:18 AM CDT Menopause Osteopenia, unspecified location COLONOSCOPY SCREENING Routine 11/18/2023 10:43 AM CDT History of colon polyps LIPID PANEL W REFLEX MEASURED LDL Routine 10/06/2023 9:45 AM CDT Other hyperlipidemia ANTI HCV Add On 12/30/2019 1:52 PM CDT Encounter for hepatitis C screening test for low risk patient from Last 3 Months or Most Recently Relevant to Health Maintenance Results * SCAN-RADIOLOGY REPORT (07/08/2024 12:[address] MESSENGER) Only the most recent of2 resultswithin the time period is included. Anatomical Region Laterality Modality Other us Scanner OTHER Final Result * EKG 12 LEAD (06/28/2024 10:[address] MESSENGER) us Joslyn Turcios MD EKG ORD Final Result * OK READING EKG - NO CHARGE, COMP ONLY (06/28/2024 10:[address] MESSENGER) Joslyn Turcios MD PB - PROVIDER READING S Final Result * (ABNORMAL) CBC AND DIFFERENTIAL (06/24/2024 10:[address] MESSENGER) WHITE BLOOD CELL COUNT 9.2 3.8 - 10.8 Thousand/u L [facility] RED BLOOD CELL COUNT 4.88 3.80 - 5.10 Million/uL [facility] HEMOGLOBIN 15.7(H) 11.7 - 15.5 g/dL [facility] HEMATOCRIT 47.2(H) 35.0 - 45.0 % [facility] MCV 96.7 80.0 - 100.0 fL [facility] MCH 32.2 27.0 - 33.0 pg [facility] MCHC 33.3 32.0 - 36.0 g/dL [facility] Comment: For adults, a slight decrease in the calculated MCHC value (in the range of 30 to 32 g/dL) is most likely not clinically significant; however, it should be interpreted with caution in correlation with other red cell parameters and the patient's clinical condition. RDW 13.0 11.0 - 15.0 % [facility] PLATELET COUNT 219 140 - 400 Thousand/u L [facility] MPV 11.2 7.5 - 12.5 fL [facility] ABSOLUTE NEUTROPHILS 5,851 1,500 - 7,800 cells/uL [facility] ABSOLUTE LYMPHOCYTES 2,567 850 - 3,900 cells/uL [facility] ABSOLUTE MONOCYTES 708 200 - 950 cells/uL [facility] ABSOLUTE EOSINOPHILS 28 15 - 500 cells/uL [facility] ABSOLUTE BASOPHILS 46 0 - 200 cells/uL [facility] NEUTROPHILS 63.6 % [facility] LYMPHOCYTES 27.9 % [facility] MONOCYTES 7.7 % [facility] EOSINOPHILS 0.3 % [facility] BASOPHILS 0.5 % [facility] Blood BLOOD SPECIMEN / Unknown 06/24/2024 10:[address] MESSENGER 06/24/2024 10:[address] MESSENGER us Joslyn Turcios MD HEMATOLOGY Final Result [facility] [address] [place] [address], [employer] [facility] [address] [place] [address] * (ABNORMAL) BASIC METABOLIC PANEL (06/24/2024 10:[address] MESSENGER) Pathologist [facility] [place] GLUCOSE 73 65 - 99 mg/dL [facility] Comment: Fasting reference interval UREA NITROGEN (BUN) 31(H) 7 - 25 mg/dL [facility] CREATININE 1.14(H) 0.60 - 1.00 mg/dL [facility] EGFR 51(L) > OR = 60 mL/min/1.7 3m2 [facility] BUN/CREATININE RATIO 27(H) 6 - 22 (calc) [facility] SODIUM 146 135 - 146 mmol/L [facility] POTASSIUM 4.1 3.5 - 5.3 mmol/L [facility] CHLORIDE 106 98 - 110 mmol/L [facility] CARBON DIOXIDE 30 20 - 32 mmol/L [facility] ELECTROLYTE BALANCE 10 7 - 17 mmol/L (calc) [facility] CALCIUM 10.2 8.6 - 10.4 mg/dL [facility] Blood BLOOD SPECIMEN / Unknown 06/24/2024 10:[address] MESSENGER 06/24/2024 10:[address] MESSENGER Joslyn Turcios MD CHEMISTRY Final Result [facility] [address] [place] [address], [facility] [address] [place] [address] * (ABNORMAL) XR DXA BONE DENSITY 2 SITES AXIAL (12/31/2023 9:18 AM CDT) Anatomical Region Laterality Modality Spine, HIPS, HIPL, HIPR Other Impressions 01/10/2024 5:37 PM CDT Osteopenia. RECOMMENDATIONS: The National Osteoporosis Foundation recommends pharmacologic treatment for patients with T-scores of -2.5 or less, patients with prior history of fragility fractures, or patients with 10-year probability of greater than 3% at hips or greater than 20% of suffering major osteoporotic fractures. Recommend continued optimization of calcium and vitamin D intake through dietary means and/or supplementation and regular exercise. Repeat scan recommended in 3-5 years. Khadijah Chaves PA-C [facility] 01/10/2024 Narrative 01/10/2024 5:37 PM CDT For Patients: Results are automatically released to your [facility] ([facility]) account once available, in compliance with federal regulations. This means that you may see your results before your provider has had a chance to review them. Please allow 2-3 business days for your provider to comment on the results. XR DXA Bone Mineral Density (BMD) EXAM LOCATION: [facility] [address] [facility] [address] PATIENT NAME: Jennifer Castle DATE OF : 1950 EXAM DATE: 12/31/2023 REQUESTING PROVIDER: Joslyn Turcios MD GENDER AT : female HEIGHT: 5' 2.5 (12/12/2023) WEIGHT: 206 lb 8 oz (12/30/2023) MENOPAUSAL STATUS: Postmenopausal RACE/ETHNICITY: White RISK FACTORS: White Race CURRENT MEDICATION FOR BONE LOSS: NONE INDICATION: Follow-up of existing osteopenia COMPARISON DATE(S): DXA scans are compared to prior studies for a patient only when the two (or more) studies were performed on the same scanner. It is not possible to compare data generated on one scanner to data from another because there are not standards in DXA equipment. This applies even if the two scanners are made by the same steel analyst. PROCEDURE: Dual-energy x-ray absorptiometry performed with routine technique. Reporting is completed in the form of a T-score. The T-score represents the standard deviation from peak bone mass based on young healthy adult. A Z-score is used for diagnosis in premenopausal women, and for men under the age of 50. FINDINGS: RESULT LUMBAR SPINE L3 - L4 BMD: 1.608 g/cm2 T-Score: + 3.1 Z-Score: + 3.9 Change from prior in 2004: Increase 2.7%. RESULTS FEMUR Left femoral neck BMD: 0.864 g/cm2 T-Score: - 1.2 Z-Score: + 0.0 Change from prior in 2016: Decrease 7.4%. Right femoral neck BMD: 1.119 g/cm2 T-Score: + 0.6 Z-Score: + 1.8 Change from prior in 2017: Increase 31.6%. Left hip BMD: 1.012 g/cm2 T-Score: + 0.0 Z-Score: + 1.0 Change from prior in 2016: Increase 3.1%. Right hip BMD: 0.972 g/cm2 T-Score: - 0.3 Z-Score: + 0.7 Change from prior in 2017: Increase 7.5%. WHO criteria: Normal: T-score at or above -1 SD Osteopenia: T-score between -1.1 and -2.4 SD Osteoporosis: T-score at or below -2.5 SD FRAX RISK CALCULATION (USED FOR OSTEOPENIA ONLY): 10-year probability of major osteoporotic fracture: 9.3%. 10-year probability of hip fracture: 1.5%. us Joslyn Turcios MD DEXA Final Result * COLONOSCOPY (11/18/2023 11:13 AM CDT) 11/18/2023 11:1 3 AM CDT Narrative Transcriptions Wiley Jarrell MD - 11/18/2023 12:00 PM CDT Patient Name: Jennifer Castle Procedure Date: 11/18/2023 Gender: Female Date of : 1950 Admit Type: Outpatient Procedure: Colonoscopy Proceduralist: Wiley Jarrell MD , Naheed Pratt (Nurse), Radha Miller (Nurse) Indications/Pre-Op Diagnosis: High risk colon cancer surveillance:Personal history of sessile serrated colon polyp(less than 10 mm in size) with no dysplasia Medications: Fentanyl 100 micrograms IV, Midazolam 3 mgIV Procedure Description: The patient had risks, benefits and alternatives explained to andgave informed consent. The patient had a stable cardiopulmonary status and judged an adequate candidate for conscious sedation. The [id number] was passed through the anus and advanced to the cecum, identified by appendiceal orifice and ileocecal valve. Thecolonoscopy was performed without difficulty. The patient tolerated the procedure well. The quality of the bowel preparation was good. The ileocecal valve, appendiceal orifice, and rectum were photographed. Complications: No immediate complications. Estimated Blood Loss & Specimen: Estimated blood loss: none. Specimen collected - Yes and sent to Laboratory Findings: The perianal and digital rectal examinations were normal. A 4 mm polyp was found in the cecum. The polyp was sessile. The polyp was removed with a cold snare. Resection and retrieval werecomplete. Multiple small-mouthed diverticula were found in the sigmoid colon. There was narrowing of the colon in association with the diverticular opening. Internal hemorrhoids were found during retroflexion. The hemorrhoids were small. The exam was otherwise without abnormality on direct and retroflexion views. Impressions/Post-Op Diagnosis: - One 4 mm polyp in the cecum, removed with a cold snare. Resectedand retrieved. - Severe diverticulosis in the sigmoid colon. There was narrowing ofthe colon in association with the diverticular opening. - Internal hemorrhoids. - The examination was otherwise normal on direct and retroflexionviews. Recommendation: - Patient has a contact number available for emergencies. The signsand symptoms of potential delayed complications were discussed with the patient. Return to normal activities tomorrow. Written discharge instructions were provided to the patient. - Resume previous diet. - Continue present medications. - Await pathology results. Moderate Sedation: A time out was performed before the procedure. Moderate (conscious) sedation was administered by the endoscopy nurse and supervised bythe endoscopist. The following parameters were monitored: oxygensaturation, heart rate, blood pressure, EKG, CO2, respiratory rate, adequacy of pulmonary ventilation and reponse to care. Please refer to the patient's medical record flowsheets and nursing notes for moderate sedation details. Total physician intraservice time was 18 minutes. Wiley Jarrell MD 11/18/2023 12:00:45 PM This report has been signed electronically. Note Initiated On: 11/18/2023 11:13 AM Procedure Code(s): --- Professional --- 87824, Colonoscopy, flexible; with removalof tumor(s), polyp(s), or other lesion(s) bysnare technique Diagnosis Code(s): --- Professional --- Z86.010, Personal history of colonicpolyps D12.0, Benign neoplasm of cecum K64.8, Other hemorrhoids K57.30, Diverticulosis of large intestine without perforation or abscess withoutbleeding CPT copyright 2022 [employer]. All rights reserved. The codes documented in this report are preliminary and upon new car inspector reviewmay be revised to meet current compliance requirements. Scope In: 11:38:39 AM Scope Withdrawal Time 0 hours 8 minutes 24 seconds Scope Out: 11:53:53 AM us Wiley Jarrell MD PROCEDURE ORD Final Res ult * LIPID PANEL W REFLEX MEASURED LDL (10/06/2023 9:45 AM CDT) CHOLESTEROL,TOTAL 179 100 - 199 mg/dL 10/06/2023 7:30 PM CDT [facility] Comment: Cholesterol, Total Reference Ranges Desirable <200 mg/dL Borderline 200-239 mg/dL High >=240 mg/dL TRIGLYCERIDES 143 <150 mg/dL 10/06/2023 7:30 PM CDT [facility] HDL CHOLESTEROL 58 >40 mg/dL 7:30 PM CDT [facility] NON-HDL CHOLESTEROL 121 <145 mg/dl 10/06/2023 7:30 PM CDT [facility] CHOL/HDL RATIO 3.09 <4.50 10/06/2023 7:30 PM CDT [facility] LDL CHOLESTEROL 92 <=130 mg/dL 10/06/2023 7:30 PM CDT [facility] VLDL CHOLESTEROL 29 <=30 mg/dL 10/06/2023 7:30 PM CDT [facility] PROVIDER ORDERED STATUS RANDOM 10/06/2023 7:30 PM CDT [facility] Blood BLOOD SPECIMEN / Unknown Venipuncture / Unknown 10/06/2023 9:45 AM CDT 10/06/2023 9:46 AM CDT us Joslyn Turcios MD CHEMISTRY Final Result [facility] [address] [place] [address], * ANTI HCV (12/30/2019 1:52 PM CDT) HEPATITIS C ANTIBODY Non-React mickey Non-React mickey 01/04/2020 10:06 AM CDT [facility] Comment:Antibodies to HCV no t detected; does not exclude the possibility of exposure to HCV. Blood BLOOD SPECIMEN / Unknown Butterfly / Unknown 12/30/2019 1:52 PM CDT 12/30/2019 1:55 PM CDT us Joslyn Turcios MD SEND OUTS Final Result Performing Organization Address City/[facility]/ZIP Co de Phone Number [facility] 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
== END 2024-12-03 23:59 | disposition home or self-care (01) ==
PROVIDERS: PCP Family Medicine; Visit Provider Orthopaedic Surgery
DX: M16.11 Unilateral primary osteoarthritis, right hip (principal); Z96.641 Presence of right artificial hip joint; Z51.89 Encounter for other specified aftercare
CPT/HCPCS: 97110; 97140; 97161; 97164

== ENCOUNTER 2024-08-05 12:05 | Outpatient (CLI) | payer MEDICARE, OTHER, SELFPAY | END 2024-08-05 12:06 | disposition home or self-care (01) | LOC: LAB 12:58 | PROVIDERS: PCP Family Medicine; Visit Provider Physician Assistant Surgical | DX: T81.31XA Disruption of external operation (surgical) wound, not elsewhere classified, initial encounter (principal); Z96.641 Presence of right artificial hip joint | CPT/HCPCS: 87070; 87075; 87186; 87205 ==

== ENCOUNTER 2024-08-06 07:53 | Outpatient (CLI) | payer MEDICARE, OTHER, SELFPAY | END 2024-08-06 07:54 | disposition home or self-care (01) | LOC: WOUND 07:59 | PROVIDERS: PCP Family Medicine; Visit Provider Nurse Practitioner Family | DX: T81.328A Disruption or dehiscence of closure of other specified internal operation (surgical) wound, initial encounter (principal); Z96.641 Presence of right artificial hip joint; I48.0 Paroxysmal atrial fibrillation | CPT/HCPCS: 11043; G0463 ==

== ENCOUNTER 2024-08-13 10:28 | Outpatient (CLI) | payer MEDICARE, OTHER, SELFPAY | END 2024-08-13 10:29 | disposition home or self-care (01) | LOC: WOUND 10:29 | PROVIDERS: PCP Family Medicine; Visit Provider Physician Assistant | DX: T81.328A Disruption or dehiscence of closure of other specified internal operation (surgical) wound, initial encounter (principal); Z96.641 Presence of right artificial hip joint | CPT/HCPCS: 97597 ==

== ENCOUNTER 2024-08-19 10:27 | Outpatient (CLI) | payer MEDICARE, OTHER, SELFPAY | END 2024-08-19 10:28 | disposition home or self-care (01) | LOC: WOUND 10:27 | PROVIDERS: PCP Family Medicine; Visit Provider Physician Assistant Surgical | DX: T81.328A Disruption or dehiscence of closure of other specified internal operation (surgical) wound, initial encounter (principal); Z96.641 Presence of right artificial hip joint | CPT/HCPCS: 11043 ==

== ENCOUNTER 2024-08-26 09:03 | Outpatient (CLI) | payer MEDICARE, OTHER, SELFPAY | END 2024-08-26 09:04 | disposition home or self-care (01) | LOC: WOUND 09:03 | PROVIDERS: PCP Family Medicine; Visit Provider Nurse Practitioner Family | DX: T81.328A Disruption or dehiscence of closure of other specified internal operation (surgical) wound, initial encounter (principal); Z96.641 Presence of right artificial hip joint | CPT/HCPCS: 11043 ==

== ENCOUNTER 2024-09-02 10:20 | Outpatient (CLI) | payer MEDICARE, OTHER, SELFPAY | END 2024-09-02 10:21 | disposition home or self-care (01) | LOC: WOUND 10:20 | PROVIDERS: PCP Family Medicine; Visit Provider Nurse Practitioner Family | DX: T81.328A Disruption or dehiscence of closure of other specified internal operation (surgical) wound, initial encounter (principal) | CPT/HCPCS: 11042 ==

== ENCOUNTER 2024-09-09 10:19 | Outpatient (CLI) | payer MEDICARE, OTHER, SELFPAY | END 2024-09-09 10:20 | disposition home or self-care (01) | LOC: WOUND 10:19 | PROVIDERS: PCP Family Medicine; Visit Provider Nurse Practitioner Family | DX: T81.328A Disruption or dehiscence of closure of other specified internal operation (surgical) wound, initial encounter (principal); Z96.641 Presence of right artificial hip joint | CPT/HCPCS: 15271; 97605; Q4158 ==

== ENCOUNTER 2024-09-17 09:23 | Outpatient (CLI) | payer MEDICARE, OTHER, SELFPAY | END 2024-09-17 09:24 | disposition home or self-care (01) | LOC: WOUND 09:24 | PROVIDERS: PCP Family Medicine; Visit Provider Nurse Practitioner Family | DX: T81.328A Disruption or dehiscence of closure of other specified internal operation (surgical) wound, initial encounter (principal); Z96.641 Presence of right artificial hip joint | CPT/HCPCS: 11042; 97605 ==

== ENCOUNTER 2024-09-24 09:16 | Outpatient (CLI) | payer MEDICARE, OTHER, SELFPAY | END 2024-09-24 09:17 | disposition home or self-care (01) | LOC: WOUND 09:16 | PROVIDERS: PCP Family Medicine; Visit Provider Nurse Practitioner Family | DX: T81.328A Disruption or dehiscence of closure of other specified internal operation (surgical) wound, initial encounter (principal); Z96.641 Presence of right artificial hip joint | CPT/HCPCS: 15271; Q4158 ==

== ENCOUNTER 2024-10-01 09:17 | Outpatient (CLI) | payer MEDICARE, OTHER, SELFPAY | END 2024-10-01 09:18 | disposition home or self-care (01) | LOC: WOUND 09:17 | PROVIDERS: PCP Family Medicine; Visit Provider Nurse Practitioner Family | DX: T81.328A Disruption or dehiscence of closure of other specified internal operation (surgical) wound, initial encounter (principal); Z96.641 Presence of right artificial hip joint; I48.0 Paroxysmal atrial fibrillation | CPT/HCPCS: G0463 ==

== ENCOUNTER 2024-10-08 09:20 | Outpatient (CLI) | payer MEDICARE, OTHER, SELFPAY | END 2024-10-08 09:21 | disposition home or self-care (01) | LOC: WOUND 09:20 | PROVIDERS: PCP Family Medicine; Visit Provider Family Medicine | DX: T81.328A Disruption or dehiscence of closure of other specified internal operation (surgical) wound, initial encounter (principal); Z96.641 Presence of right artificial hip joint | CPT/HCPCS: 11042 ==

== ENCOUNTER 2024-10-15 09:21 | Outpatient (CLI) | payer MEDICARE, OTHER, SELFPAY | END 2024-10-15 09:22 | disposition home or self-care (01) | LOC: WOUND 09:22 | PROVIDERS: PCP Family Medicine; Visit Provider Nurse Practitioner Family | DX: T81.328A Disruption or dehiscence of closure of other specified internal operation (surgical) wound, initial encounter (principal); Z96.641 Presence of right artificial hip joint | CPT/HCPCS: 11042 ==

== ENCOUNTER 2024-10-22 09:25 | Outpatient (CLI) | payer MEDICARE, OTHER, SELFPAY | END 2024-10-22 09:26 | disposition home or self-care (01) | LOC: WOUND 09:25 | PROVIDERS: PCP Family Medicine; Visit Provider Nurse Practitioner Family | DX: T81.328A Disruption or dehiscence of closure of other specified internal operation (surgical) wound, initial encounter (principal); Z96.641 Presence of right artificial hip joint; I48.0 Paroxysmal atrial fibrillation | CPT/HCPCS: G0463 ==

== ENCOUNTER 2024-10-29 09:19 | Outpatient (CLI) | payer MEDICARE, OTHER, SELFPAY | END 2024-10-29 09:20 | disposition home or self-care (01) | LOC: WOUND 09:19 | PROVIDERS: PCP Family Medicine; Visit Provider Nurse Practitioner Family | DX: T81.328A Disruption or dehiscence of closure of other specified internal operation (surgical) wound, initial encounter (principal); Z96.641 Presence of right artificial hip joint; I48.0 Paroxysmal atrial fibrillation | CPT/HCPCS: G0463 ==

== ENCOUNTER 2024-11-04 13:14 | Outpatient (CLI) | payer MEDICARE, OTHER, SELFPAY | END 2024-11-04 13:15 | disposition home or self-care (01) | LOC: WOUND 13:14 | PROVIDERS: PCP Family Medicine; Visit Provider Nurse Practitioner Family | DX: T81.328D Disruption or dehiscence of closure of other specified internal operation (surgical) wound, subsequent encounter (principal); Z96.641 Presence of right artificial hip joint | CPT/HCPCS: G0463 ==

== ENCOUNTER 2025-04-03 16:27 | Emergency (ER) | payer MEDICARE, OTHER, SELFPAY ==
--- OUTSIDE RECORDS SUMMARY | 2014-06-20 08:00 | XMS_ITS | Continuity of Care Document ---
Author Organization [facility] Address [address] [address] [place] [address] Phone Care Team Providers Care Chain Builder Name Role Phone Unavailable Unavailable Unavailable Allergies, Adverse Reactions, Alerts Substance Reaction Status Criticality NAPROXEN SODIUM hives Active No Informati on morphine Nausea Active No Information Medications Medication Instructions Dosage Effective Dates (start - stop) Status Comments simvastatin 40 mg tablet take 1 tablet b y oral route every day in the evening 40 MG - Active aspirin 81 mg tablet,delayed release take 1 tablet by oral route every day 81 MG - Active ibuprofen 200 mg tablet take 3 tablet by oral route every day as needed with food 600 MG - Active Multiple Vitamins tablet take 1 tablet b y oral route every day with food - Active potassium chloride ER 10 mEq Cap Take two capsules by mouth daily - Active Tenormin 50 mg Tab Take one tablet by mouth daily - Active triamterene-hydrochlorothi azide 37.5 mg-25 mg Cap every day - Active Levothyroxine Sodium 0.112 mgTABLET every day - Active MiralaxBisacodylMagCit Colon Prep Use as directed - No Longer Active GLUCOSAMINE CHONDROITIN (unknown strength) Take two tablets by mouth daily Not Available - No Longer Active Maranda 180 mg Tab Take one tablet by mouth daily - No Longer Active Lipitor 20 mg Tab every day No Longer Active Procedures Procedure Date Colonoscopy Flex; Dx (sep Pro) 14 Colonoscopy Flex; W/remov Les- 09 Level Iv-surg Path Gross/micro 09 Advance Directives Directive Yes / No Effective Date File Name No Information Encounters Encounter Description Practice Location Reason(s) For Visit Diagnoses Date Provider Providers Copied on Encounter [facility], [address] [address], [place], [id number], [place] tel:[phone] [facility] Colon cancer screeningFami ly Hx GI Tract CancerColon Cancer Screening 4 No Information Referring Provider: Referral Self, USE FOR SELF REFERRALS. [facility] [facility], [address] [address], [facility] [place], [id number], [place] tel:[phone] [facility] No Information 4 Galo Allen. [address] [place] [address], [id number], [place]. tel:[phone] Referring Provider: Referral Self, USE FOR SELF REFERRALS. [facility] [employer] [facility], [address] [address], [place], [id number], [place] tel:[phone] [facility] Colon Cancer ScreeningHemo rrhoids NosDigestive Neoplasm Nos 9 Audrey Flores. [address] [place] [address], [id number], [place]. tel:[phone] Referring Provider: Joslyn Turcios MD K, [address] [place] [address], [place], [address]. tel:[phone] Family History Family Member Type Diagnosis Age At Onset No Information Payers Payer name Insurance type Covered alliance party ID Authorhazela tirashaad(s) Blue Cross Of [facility] [id number] Social History Type Description Quantity Date Captured Comments Alcohol Use Details Unknown Caffeine Use Details Unknown Tobacco Use Status No Information Smoking Status Never smoker Sex Male Vital Signs Date / Time: Height Weight BMI Pulse Rate Blood Pressure Temperature Respiratory Rate Body Surface Area Head Circumference Head Circ. Percentile Wt./Al. Percentile BMI percentile Pulse Ox Inhaled Ox 62.00 in 97.050 kg (214.00 lbs) 39.1 0 kg/m eter (2) 68 /min 153/77 mm[Hg] 0.00 F 16 /min 95 % Chief Complaint And Reason For Visit No Information Reason For Referral Reason For Referral No Information History Of Present Illness Encounter Date Complaint History Of Prese nt Illness No Information Functional Status Date Functional Assessmen t No Information Instructions Date Instruction Additional Infor mation High Fiber Diet Related to Colon cancer screening Hemorrhoids Related to Colon cancer screening Colon Cancer Prevention Related to Colon cancer screening Assessments Type Assessment Date assessment Colon cancer screening 14 Patient Care Teams Name Effective Dates (start - stop) Status Members No Information
--- OUTSIDE RECORDS SUMMARY | 2014-06-20 08:00 | XMS_ITS | Continuity of Care Document ---
Author Organization [facility] Address [address] [address] [place] [address] Phone Care Team Providers Care Head Bellhop Captain Name Role Phone Unavailable Unavailable Unavailable Allergies, [...] Date Provider Providers Copied on Encounter [facility], [address] [address], [place], [id number], [place] tel:[phone] [facility] Colon cancer screeningFami ly Hx GI Tract CancerColon Cancer Screening 4 No Information Referring Provider: Referral Self, USE FOR SELF REFERRALS. [facility] [employer] [facility], [address] [address], [facility] [place], [id number], [place] tel:[phone] [facility] No Information 4 Galo Allen. [address] [place] [address], [id number], [place]. tel:[phone] Referring Provider: Referral Self, USE FOR SELF REFERRALS. [facility] [employer] [facility], [address] [address], [place], [id number], [place] tel:[phone] [facility] Colon Cancer ScreeningHemo rrhoids NosDigestive Neoplasm Nos 9 Audrey Flores. [address] [place] [address], [id number], [place]. tel:[phone] Referring Provider: Joslyn Turcios MD K, [address] [place] [address], [place], [address]. tel:[phone] Family History Family Member Type Diagnosis Age At Onset No Information Payers Payer name Insurance type Covered green party ID Authorhazela tirashaad(s) Blue Cross Of [facility] [id number] Social History Type Description Quantity Date Captured [...]
--- OUTSIDE RECORDS SUMMARY | 2025-04-03 16:29 | XMS_ITS | Clinical Summary ---
Author Organization [facility] Address [address] [place] [address] Care Team Providers Care Research Investigator Name Role Phone Joslyn Turcios MD Primary Care Provide r Jackie Monique PharmD Unavailable Allergies Active Allergy Reactions Criticality Noted Date Comments Naproxen Hives 12/26/2006 Hydromorphone Respiratory Distress 11/16/2024 Morphine Intolerance-Can't Take,Vomiting 12/12 Medications multivitamin (MVI) tablet Take 1 tablet by mouth once daily. Active Calcium Carbonate-Mag Hydroxid (Rolaids Extra Strength) 675-135 mg chewIndications:His tory of gastroesophageal reflux (GERD) Chew 2 Tablets by mouth each time if needed. 10/09/19 Active psyllium powdIndications:Chr onic constipation Mix 1 tsp in liquid then take by mouth once daily if needed for Constipation. 12/19/19 24 Active Additional Information Patient taking differently: No details specified, Reason: patient takes daily, Reported on 03/28/2025 melatonin 10 mg tabIndications:Inso mnia, idiopathic Take 1 Tablet (10 mg) by mouth at bedtime if needed (Sleep). 02/04/20 24 Active acetaminophen (TYLENOL) 325 mg tabletIndications:P rimary osteoarthritis of both knees Take 2 Tablets (650 mg) by mouth every 6 hours. Max acetaminophen dose: 4000mg in 24 hrs. 03/24/20 24 Active metoprolol tartrate (LOPRESSOR) 25 mg tabletIndications:R apid atrial fibrillation (HC) Take 1 tablet at onset of palpitations with heart rate greater than 110 as needed 30 Tablet 04/30/20 24 Active fluticasone (50 mcg per actuation) nasal solution (FLONASE)Indication s:Seasonal allergies Inhale 2 Sprays in both nostrils once daily. 16 g 5 11/17/19 25 Active Additional Information Patient taking differently: No details specified, Reason: takes occasionally, Reported on 03/28/2025 omeprazole 20 mg Delayed-Release capsuleIndications: History of gastroesophageal reflux (GERD) Take 1 Capsule (20 mg) by mouth once daily before a meal. 90 Capsule 11/17/19 25 Active apixaban 5 mg tabletIndications:R apid atrial fibrillation (HC) Take 1 Tablet (5 mg) by mouth two times daily. 180 Tablet 11/17/19 25 Active mirabegron EXTENDED-release 50 mg tabletIndications:U rinary urgency Take 1 Tablet (50 mg) by mouth once daily. 90 Tablet 11/17/19 25 Active levothyroxine 125 mcg tabletIndications:H ypothyroidism (acquired) Take 1 Tablet (125 mcg) by mouth before breakfast. 90 Tablet 11/17/19 25 Active metoprolol succinate (Toprol XL) 100 mg Sustained-Release tabletIndications:R apid atrial fibrillation (HC),Hypertension, unspecified type Take 1 Tablet (100 mg) by mouth once daily. With 50 mg tablet to equal 150 mg daily 90 Tablet 11/17/19 25 Active metoprolol succinate 50 mg sustained-release tabletIndications:R apid atrial fibrillation (HC),Hypertension, unspecified type Take 1 Tablet (50 mg) by mouth once daily. With 100 mg tablet to equal 150 mg daily 90 Tablet 11/17/19 25 Active predniSONE 5 mg tabletIndications:P seudogout Take 1 Tablet (5 mg) by mouth once daily with a meal. 90 Tablet 11/17/19 25 Active colchicine 0.6 mg tabletIndications:P rimary osteoarthritis of both knees Take 1 Tablet (0.6 mg) by mouth two times daily. 180 Tablet 11/17/19 25 Active amLODIPine 5 mg tabletIndications:H ypertension, unspecified type Take 1 Tablet (5 mg) by mouth once daily. 90 Tablet 11/17/19 25 Active Active Problems Problem Noted Date Diagnosed Date Stage 3 chronic kidney disea se, unspecified whether stage 3a or 3b CKD 11/16/2024 Atrial fibrillation 12/19/2023 Depression, recurrent 10/09/2023 Obesity, [...] Encounters Date Type Department Care Team Description 04/03/2025 Travel 03/28/2025 8:30 AM CDT Office Visit [facility] [address] [address] Clare Flowers, Derm Problem 03/28/2025 Travel 03/23/2025 Travel 02/21/2025 Telephone [facility] [address] [place], [place] [id number] Joslyn Turcios MD Medication Management from Last 3 Months Immunizations Immunization Administration Dates Next Due AMB INFLUENZA IIV3 (AGE 65+ YRS) PF (Flu Clinic Only) 04/22/2019,04/06/2018,04/02/2017 AMB Influenza, IIV4 PF (=>6 mos Flulaval,Fluzone Fluarix)(Flu Clinic Only) 04/01/2014 Amb Influenza, Inactivated A IIV4 (Age 65+ Years) Preserv Free 04/05/2020 COVID-19 VACCINE SPIKEVAX (M ODERNA 50MCG/0.5ML) 12YO+ PFS 04/29/2023 COVID-19 vaccine (Moderna 100mcg/0.5mL) PF, MDV 10/11/2021,10/17/2020,09/19/2020 COVID-19 vaccine (Moderna 50 mcg/0.5mL) 12YO+ BIVALENT PF, MDV 11/18/2022,04/09/2022 Influenza A (H1N1), Inactivated 07/26/2009 Influenza Virus, Unspecified 03/25/2023, 03/27/2022,03/26/2021,04/05 Influenza, High-dose Inactivated 03/16/2024,03/15,04/04/2015 Influenza, IIV3 (Age 6-35 mos) 03/25/2011,2008 Influenza, IIV3 (Age >=3 years) 03/30/2013,04/02,03/25/2011 Influenza, IIV4 04/22/2019, 8,04/02/2017,04/10,04/04/2015,04/01/2014,03/30/2013 ,04/02/2012,03/25/2011,07/26/2009,03/14 Influenza, Inactivated AIIV4 (Age 65+ Years) Preserv Free 03/25/2023,03/27/2022,03/26/2021 Influenza, Inactivated IIV3 (Age 65+ Years) Preserv Free 04/02/2017 Pneumococcal Poly,23-Valent (Pneumovax) 12/26/2017,02/09/2010 Pneumococcal conj 13-Valent (Prevnar 13) 04/04/2015 RSV, Recombinant ADJ Reconst ituted (Arexvy 120MCG/0.5mL) 06/24/2024 Td (Age >=7 Years) 11/26/2016 Td, Preservative Free (age >= 7 Years) 7 Tdap 03/08/2011 Zoster (Shingrix-RZV, recombinant) 03/20/2019, Zoster [...] Alive Brother 3 William Alive Brother 4 Saqibl Daughter Rachael Alive Father Denys Thomas Alive [...] alcohol) glass of wine 4 x year PHQ-2 Answer Date Recorded PHQ-2 TOTAL SCORE 0 11/16/2024 Social Connections Answer Date Recorded Do you often feel lonely or isolated from those around you? 0 11/16/2024 Financial Resource Strain Answer Date R ecorded Difficulty of Paying Living Expenses 3 11/16/2024 Difficulty of Paying Living Expenses Not on file 11/16/2024 Food Insecurity Answer Date Recorded Do you worry your food will run out before you are able to buy more? 1 11/16/2024 Transportation Needs Answer Date Record ed Does lack of transportation keep you from medica l appointments? 1 11/16/2024 Does lack of transportation keep you from work, meetings or getting things that you need? 1 11/16/2024 Housing Stability Answer Date Recorded What is your housing situation today? 1 11/16/2024 Utilities Answer Date Recorded Do you have trouble paying f or utilities (for example, heat, electricity, water, phone)? 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 Not on file Not on file Obstetrics History Last Filed Vital Signs Vital Sign Reading Time Taken Comments Blood Pressure 117/67 11/16/2024 1:24 PM CDT Pulse 57 11/16/2024 1:24 PM CDT Temperature 37.1 C (98.8 F) 02/10/2020 8:07 AM CDT Respiratory Rate 16 11/18/2023 12:10 PM CDT Oxygen Saturation 98% 11/16/2024 1:24 PM CDT Inhaled Oxygen Concentration - - Weight 94.3 kg (208 lb) 11/16/2024 1:24 PM CDT Height 157.5 cm (5' 2) 11/16/2024 1:24 PM CDT Body Mass Index 38.04 11/16/2024 1:24 PM CDT Plan of Treatment Upcoming Encounters Date Type Department Care Team (Late st Contact Info) Description 04/05/2025 8:30 AM CDT Pharmacist Medication Management [facility] [address] [place] [address] Jackie Monique, PharmD [address] [place] [address] 03/29/2026 8:15 AM CDT Office Visit [facility] [address] [address] Clare Flowers, [address] [place], [place] [phone] Health Maintenance Due Date Last Done Comments Influenza Vaccine (#1) 2025 , 03/25/2023, 03/25/2023, Additional history exists BMI (ht and wt on same day) for age 18+ 11/16/2025 11/16/2024, 12/12/2023, 10/09/2023, Additional history exists Depression screening for age 12+ 11/17/2025 11/17/2024, 11/16/2024, 02/23/2024, Additional history exists Medicare Wellness for age 65+ 11/17/2025 11/16/2024, 10/09/2023, 10/03/2022, Additional history exists Colonoscopy through age 75 11/17/202611/17, 11/18/2023, 11/18/2023, Additional history exists Tetanus booster 11/26/2026 11/26/2016, 11/11, 03/08/2011 Lipids for age 45-75 11/12/2029 11/12/2024, 10/06/2023, 09/30/2022, Additional history exists Pneumococcal series for age 50+ Completed 12/26/2017, 04/04/2015, 02/09/2010 Zoster (shingles) series for age 50+ Completed 03/20/2019, 01/07/2019, 03/08/2011 Hepatitis C screening for age 18-79 Completed 12/30/2019 DEXA/DXA scan for age 65+ Completed 2023, 11/25/2016, 11/06/2004 RSV vaccine for adults or Completed 06/24/2024 COVID-19 vaccine series Completed 03/22/20, 10/13/2024, 03/16/2024, Additional history exists Hepatitis B series for 19+ Aged Out N o longer eligible based on patient's age to complete this topic Goals Goal Patient Goal Type Associated Problems Recent Progress Patient-Stated? Author BLOOD PRESSURE - Maintains BP less than 140/90 Blood Pressure No Brianda Dong LPN Procedures Procedure Name Priority Date/Time Associated Diagnosis Comments PATH TISSUE EXAM Routine 03/28/2025 8:40 AM CDT Neoplasm of uncertain behavior of skin LIPID PANEL W REFLEX MEASURED LDL Today 11/12/2024 3:10 PM CDT Other hyperlipidemia XR DXA BONE DENSITY 2 SITES AXIAL Routine 12/31/2023 9:18 AM CDT Menopause Osteopenia, unspecified location COLONOSCOPY SCREENING Routine 11/18/2023 10:43 AM CDT History of colon polyps ANTI HCV Add On 12/30/2019 1:52 PM CDT Encounter for hepatitis C screening test for low risk patient from Last 3 Months or Most Recently Relevant to Health Maintenance Results * PATH TISSUE EXAM (03/28/2025 8:40 AM CDT) Case Report Pathology Report Case: [id number] Authorizing Provider: Clare Flowers DO Collected: 03/28/2025 0840 Ordering Location: [facility] Received: 03/28/2025 1510 [facility] Pathologist: Nitesh Damon MD Specimen: Skin, right mosque 04/01/2025 3:49 PM CDT [facility] Final Diagnosis SKIN, RIGHT AMISH, BIOPSY: 1. Squamous cell carcinoma in situ 2. Intradermal nevus 3. Negative for invasive neoplasm 04/01/2025 3:49 PM CDT [facility] at 1549 CDT Clinical Information Rule out traumatized nevus versus BCC. 04/01/2025 3:49 PM CDT [facility] Gross Description A) Received in formalin, labeled with the patient's name and right mosque, is a 0.7 x 0.5 cm skin biopsy. There is a 0.6 x 0.4 cm raised brannon lesion. The skin biopsy is inked blue and trisected. Also received is a 0.4 x 0.2 cm skin biopsy fragment. The skin surface is unremarkable. The skin biopsy fragment is inked green and bisected. The specimen is entirely submitted in 2 cassettes. VRS 03/29/2025 04/01/2025 3:49 PM CDT [facility] Microscopic Description The final diagnosis is based on microscopic examination of appropriate sections of all specimens. Sections show a hyperkeratotic surface epithelium with significant cytologic atypia, marked lack of polarization, and mitotic activity but no invasive component. There is solar elastosis. Also, there is a symmetrical and well circumscribed dermal proliferation of melanocytes present that is free of significant cytologic or architectural atypia. The deep dermal component matures and is free of significant mitotic activity. The presence of blue and green ink is confirmed on tissue sections. 04/01/2025 3:49 PM CDT [facility] Additional Information Interpreted at [facility], Central Laboratory - [address] [facility] [address], [place] [address] 04/01/2025 3:49 PM CDT [facility] Other SPECIMEN FROM SKIN / Unknown Non-Blood / Unknown 03/28/2025 8:40 AM CDT 03/28/2025 3:10 PM CDT us Clare Flowers DO PATHOLOGY/CYTOLOGY Lizz l Result [facility] [address] [place] [address], * (ABNORMAL) LIPID PANEL W REFLEX MEASURED LDL (11/12/2024 3:10 PM CDT) CHOLESTEROL,TOTAL 239(H) 100 - 199 mg/dL 11/12/2024 10:30 PM CDT [facility] Comment: Cholesterol, Total Reference Ranges Desirable <200 mg/dL Borderline 200-239 mg/dL High >=240 mg/dL TRIGLYCERIDES 155(H) <150 mg/dL 11/12/2024 10:30 PM CDT [facility] HDL CHOLESTEROL 86 >40 mg/dL 10:30 PM CDT [facility] NON-HDL CHOLESTEROL 153(H) <145 mg/dl 11/12/2024 10:30 PM CDT [facility] CHOL/HDL RATIO 2.78 <4.50 11/12/2024 10:30 PM CDT [facility] LDL CHOLESTEROL 122 <=130 mg/dL 11/12/2024 10:30 PM CDT [facility] VLDL CHOLESTEROL 31(H) <=30 mg/dL 11/12/2024 10:30 PM CDT [facility] PROVIDER ORDERED STATUS RANDOM 11/12/2024 10:30 PM CDT [facility] Blood BLOOD SPECIMEN / Unknown Venipuncture / Unknown 11/12/2024 3:10 PM CDT 11/12/2024 3:10 PM CDT us Joslyn Turcios MD CHEMISTRY Final Result [facility] [address] [place] [address], [facility] [address] [place] [address] * (ABNORMAL) XR DXA BONE DENSITY 2 [...] recommended in 3-5 years. Khadijah Chaves PA-C [facility] 01/10/2024 Narrative 01/10/2024 5:37 PM CDT For Patients: Results are automatically released to your [facility] ([employer]) account once available, in compliance with federal regulations. This means that you may see your results before your provider has had a chance to review them. Please allow 2-3 business days for your provider to comment on the results. XR DXA Bone Mineral Density (BMD) EXAM LOCATION: [address] [address] PATIENT NAME: Jennifer Castle DATE OF : [...] two scanners are made by the same pen or pencil assembly machine operator. PROCEDURE: Dual-energy x-ray absorptiometry performed with routine [...] Z-Score: + 0.0 Change from prior in 2017: Decrease 7.4%. Right femoral neck BMD: 1.119 g/cm2 T-Score: + 0.6 Z-Score: + 1.8 Change from prior in 2017: Increase 31.6%. Left hip BMD: 1.012 g/cm2 T-Score: + 0.0 Z-Score: + 1.0 Change from prior in 2017: Increase 3.1%. Right hip BMD: 0.972 g/cm2 [...] an adequate candidate for conscious sedation. The [id number] was passed through the anus and advanced [...] 11:13 AM Procedure Code(s): --- Professional --- 64090, Colonoscopy, flexible; with removalof tumor(s), polyp(s), or other lesion(s) bysnare technique Diagnosis Code(s): --- Professional --- Z86.010, Personal history of colonicpolyps D12.0, Benign neoplasm of cecum K64.8, Other hemorrhoids K57.30, Diverticulosis of large intestine without perforation or abscess withoutbleeding CPT copyright 2022 [employer]. All rights reserved. The codes documented in this report are preliminary and upon ecotherapist reviewmay be revised to meet current compliance requirements. Scope In: 11:38:39 AM Scope Withdrawal Time 0 hours 8 minutes 24 seconds Scope Out: 11:53:53 AM us Wiley Jarrell MD PROCEDURE ORD Final Res ult * ANTI HCV (12/30/2019 1:52 PM CDT) HEPATITIS C ANTIBODY Non-React mickey Non-React mickey 01/04/2020 10:06 AM CDT [facility] Comment:Antibodies to HCV no t detected; does not exclude the possibility of exposure to HCV. Blood BLOOD SPECIMEN / Unknown Butterfly / Unknown 12/30/2019 1:52 PM CDT 12/30/2019 1:55 PM CDT us Joslyn Turcios MD SEND OUTS Final Result [facility] 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
[2025-04-03 16:36] VITALS: BP 132/77; PULSE 77; RESP 20; TEMP 36.9; O2SAT 95; BMI 38.4
[2025-04-03 17:19] VITALS: O2SAT 95
--- NOTE | 2025-04-03 17:38 | ED.ARRPALP ---
HPI - Arrhythmia/Palpitations General Date Seen: 04/03/25 Chief Complaint: Arrhythmia/Palpitations Stated Complaint: A-Fib Time Seen by Provider: 04/03/25 17:11 Source: patient Mode of arrival: ambulatory Limitations: no limitations History of Present Illness HPI narrative: Patient is a 74-year-old female presenting to the emergency department for concerns of AFib. She has a history of paroxysmal AFib in takes metoprolol and is on Eliquis. She states whenever her AFib XL she will to minutes a dose of short-acting metoprolol. She states she does have to take 4 doses of the past few days and she will feel like she will be in AFib for about 4 hours until symptoms resolve. She does not have any chest pain, shortness of breath, lightheadedness, dizziness, weakness, numbness, abdominal pain, fevers, chills, diarrhea, constipation. She states she is asymptomatic throughout this time. She is able to check her heart rate with a home monitor and it does confirm she is in AFib at these times. This is the most frequent it has ever happened so she came in to be evaluated. States she feels asymptomatic at this time. Of note she does states she feels like she was in AFib while getting her triage done and at that time heart rate was 77. No other concerns noted. Related Data Home Medications ?Medication ?Instructions ?Recorded ?Confirmed levothyroxine 125 mcg tablet 125 mcg PO DAILY@07 05/10/22 04/03/25 multivitamin 1 tab PO DAILY 05/10/22 04/03/25 omeprazole 20 mg capsule,delayed 20 mg PO DAILY 10/21/23 04/03/25 release fluticasone propionate 50 2 spray intranasal DAILY PRN 04/24/24 04/03/25 mcg/actuation nasal spray,suspension (24 Hour Allergy Relief) melatonin 5 mg tablet 10 mg PO HS PRN sleep 04/24/24 04/03/25 mirabegron 50 mg tablet,extended 50 mg PO DAILY 04/24/24 04/03/25 release 24 hr (Myrbetriq) prednisone 5 mg tablet 5 mg PO DAILY 04/24/24 04/03/25 metoprolol tartrate 25 mg tablet 25 mg PO DAILY PRN 07/08/24 04/03/25 acetaminophen 325 mg tablet 650 mg PO BID PRN 08/05/24 04/03/25 metoprolol succinate 100 mg 100 mg PO DAILY 08/05/24 04/03/25 tablet,extended release 24 hr metoprolol succinate 50 mg mg PO DAILY 08/05/24 01/12/25 tablet,extended release 24 hr amlodipine 5 mg tablet 5 mg PO DAILY 01/12/25 04/03/25 cetirizine 10 mg tablet (Zyrtec) 10 mg PO QDAY PRN 01/12/25 04/03/25 rosuvastatin 10 mg tablet 10 mg PO QPM 01/12/25 04/03/25 Previous Rx's ?Medication ?Instructions ?Recorded apixaban 5 mg tablet (Eliquis) 5 mg PO BID #60 tabs 12/13/23 colchicine 0.6 mg tablet 0.6 mg PO BID PRN #60 tabs 12/13/23 [facility] [address] [employer] Cold Therapy System #1 ea 07/05/24 Allergies Allergy/AdvReac Type Severity Reaction Status Date / Time naproxen Allergy Hives Verified 04/03/25 16:35 hydromorphone (From Dilaudid) AdvReac Unknown Verified 04/03/25 16:35 morphine AdvReac Vomiting Verified 04/03/25 16:35 Review of Systems Status of ROS: Reports: 10 or more systems reviewed and unremarkable except as noted in History and below [facility] Medical History Paroxysmal atrial fibrillation ?I48.0 - Paroxysmal atrial fibrillation (ICD-10) Health care directive on file ?Z78.9 - Other specified health status (ICD-10) Depression ?F32.A - Depression, unspecified (ICD-10) Pseudogout ?M11.20 - Other chondrocalcinosis, unspecified site (ICD-10) Generalized anxiety disorder ?F41.1 - Generalized anxiety disorder (ICD-10) History of breast cancer ?Z85.3 - Personal history of malignant neoplasm of breast (ICD-10) Hyperlipidemia ?E78.5 - Hyperlipidemia, unspecified (ICD-10) Hypothyroidism ?E03.9 - Hypothyroidism, unspecified (ICD-10) Surgical History History of total right hip replacement (07/08/24) ?Z96.641 - Presence of right artificial hip joint (ICD-10) History of tonsillectomy ?Z90.89 - Acquired absence of other organs (ICD-10) History of hysterectomy (1997) ?Z90.710 - Acquired absence of both cervix and uterus (ICD-10) History of cholecystectomy ?Z90.49 - Acquired absence of other specified parts of digestive tract (ICD-10) Previous section ?Z98.891 - History of uterine scar from previous surgery (ICD-10) History of bladder repair surgery ?Z98.890 - Other specified postprocedural states (ICD-10) Status post bilateral mastectomy ?Z90.13 - Acquired absence of bilateral breasts and nipples (ICD-10) 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) ?Z96.651 - Presence of right artificial knee joint (ICD-10) Social History What is your current living situation?: I presently have a place to live Problems where you live: no known problems Problems where you live details: N/A In the past 12 months, utilities in danger of being shut off: no In past 12 months, lack of transportation kept you from medical appts, meetings, work, or getting things needed for daily living: no In the past 12 mos, have been you worried that your food would run out before you had money to buy more?: often true In the past 12 mos, the food you bought just didn't last and you didn't have money to buy more?: often true Highest level of school completed/degree received: decline to answer Smoking Status: Never smoker Second hand tobacco smoke exposure: No How often do you have a drink containing alcohol: monthly or less Alcohol type: wine Alcohol type details: pt states 2 glasses of wine a year How many standard drinks containing alcohol do you have on a typical day: 1 or 2 How often do you have six or more drinks on one occasion: Less than monthly AUDIT-C Alcohol total score: 2 Non-prescribed substance use: denies use Caffeine: Yes (couple cans Mtn Dew daily) How often does anyone, including family, friends and others, physically hurt you: never How often does anyone, including family, friends and others, insult or talk down to you: never How often does anyone, including family, friends and others, threaten you with harm: never How often does anyone, including family, friends and others, scream or curse at you: never Gender Identity: female service: No Health Related Social Needs: food insecurity (Z59.41) Exam Narrative: Exam Narrative: Const: Well-nourished, Well-developed, in no distress Eyes: PERRL, no conjunctival injection, and symmetrical lids HENT: Atraumatic external nose and ears. Moist mucous membranes. Neck: Symmetric, trachea midline, No thyromegaly. CVS: RRR, No murmurs or gallops. Peripheral pulses 2+ and equal in all extremities RESP: Unlabored respiratory effort. Clear to auscultation bilaterally. GI: Nontender/Nondistended, No rebound or guarding. MSK:Extremities w/o deformity, Normal Active ROM Skin: Warm, Dry. No rashes or lesions. Neuro: Normal Muscle tone, No focal neurological deficits. Psych: Awake, Alert, & Oriented x3. Appropriate mood and affect. Const: Vital Signs, click to edit/add: Vital Signs - 24 hr 04/03/25 16:36 04/03/25 17:19 04/03/25 19:01 Temperature 98.5 F 98.4 F Pulse Rate [Pulse Oximeter] 77 67 Respiratory Rate 20 18 Blood Pressure [Ri ght Upper Arm] 132/77 143/83 H Pulse Oximetry 95 95 95 Oxygen Delivery Me thod Room Air Room Air Room Air Course Vital Signs Vital signs: Initial Vital Signs Temperature 98.5 F 04/03/25 16:36 Temperature Source Temporal Artery Scan 04/03/25 16:36 Pulse Rate 77 04/03/25 16:36 Respiratory Rate 20 04/03/25 16:36 Blood Pressure 132/77 04/03/25 16:36 Blood Pressure Mean 95 04/03/25 16:36 Pulse Oximetry 95 04/03/25 16:36 Oxygen Delivery Method Room Air 04/03/25 16:36 Vital Signs Temperature 98.5 F 04/03/25 16:36 Pulse Rate 77 04/03/25 16:36 Respiratory Rate 20 04/03/25 16:36 Blood Pressure 132/77 04/03/25 16:36 Pulse Oximetry 95 04/03/25 16:36 Oxygen Delivery Method Room Air 04/03/25 16:36 Temperature 98.4 F 04/03/25 19:01 Pulse Rate 67 04/03/25 19:01 Respiratory Rate 18 04/03/25 19:01 Blood Pressure 143/83 H 04/03/25 19:01 Pulse Oximetry 95 04/03/25 19:01 Oxygen Delivery Method Room Air 04/03/25 19:01 MDM - Arrhythmia/Palpitations MDM Narrative Medical decision making narrative: Patient is a 74-year-old female presenting for concern of recurrent AFib. Will do an EKG troponin to look for any cardiac abnormalities. Will check her magnesium and BMP to look for electrolyte abnormalities that could be causing these and AFib episodes. Will also order CBC. EKG reviewed by myself shows no concerning abnormalities. She is not currently in AFib. Lab work returned showing no acute concerning abnormalities. At this time I do believe he is safe for discharge and is to follow-up with her primary care provider. She is agreeable to this plan. I do not currently believe is necessary to adjust her medications. She does states her primary care providers who manages her AFib. She is already on Eliquis. On my review vital signs are stable throughout time in in the emergency department. Oximetry stayed in the mid to high 90s. case monitor showed no concerning arrhythmias. Lab Data Labs: Lab Results 04/03/25 04/03/25 Range/Units 17:38 17:39 WBC 6.88 (4.50-11.00) K/uL RBC 4.86 (4.00-5.20) m/uL Hgb 15.2 (12.0-16.0) gm/dL Hct 46.0 (33.0-51.0) % MCV 95 (80-100) fL MCH 31 (26-34) pg MCHC 33 (32-36) gm/dL RDW Coeff of Harmeet 12.5 (11.5-15.5) % Plt Count 192 (140-440) K/uL Neut % (Auto) 55.9 (42.0-72.0) % Lymph % (Auto) 34.4 (20-44) % Peach % (Auto) 7.0 (0.0-11.0) % Eos % (Auto) 2.3 (0.0-7.0) % Baso % (Auto) 0.4 (0.0-3.0) % Neut # (Auto) 3.84 (1.7-7.0) K/uL Lymph # (Auto) 2.37 (0.90-2.90) K/uL Peach # (Auto) 0.50 (0.00-0.90) K/UL Eos # (Auto) 0.16 (0.00-0.50) K/uL Baso # (Auto) 0.03 (0.00-0.30) K/uL Abs Immat Gran (auto) 0.00 (0.00-0.30) K/uL Imm/Tot Granulo (auto) 0.0 % Sodium 140 (135-149) mmol/L Potassium 4.9 (3.6-5.1) mmol/L Chloride 106 (96-114) mmol/L Carbon Dioxide 26 (20-32) mmol/L Anion Gap 8 (7-15) mEq/L BUN 26 (7-30) mg/dL Creatinine 1.0 (0.5-1.5) mg/dL Estimated Creat Clear 38.44 Estimated GFR 59 ml/min Glucose 100 (60-115) mg/dL Calcium 9.9 (8.4-10.6) mg/dL Magnesium 1.9 (1.5-2.6) mg/dL Troponin I < 0.01 (0.01-0.04) ng/mL POC Troponin I 0.00 L (0.01-0.04) ng/ml ECG Data Attestation: I personally reviewed and interpreted this ECG as follows: Prior ECG tracings: available for review Interpretation: Normal sinus rhythm with rate 66 beats per minute, normal intervals, normal axis, no ST or T-wave abnormalities. Appears similar to most recent EKGs on file that were also normal sinus rhythm. Does have previous EKG showing AFib Discharge Plan Discharge Clinical Impression: Paroxysmal atrial fibrillation Patient Disposition: Home, Self-Care Condition: Stable Instructions: A-fib (Atrial Fibrillation) (ED) Additional Instructions: I recommend following up with the primary care provider. Speak to them about adjusting her medications for your AFib. Return to emergency department for new or worsening symptoms. Prescriptions: No Action levothyroxine 125 mcg tablet 125 mcg PO DAILY@07 multivitamin Tablet 1 tab PO DAILY cetirizine [Zyrtec] 10 mg tablet 10 mg PO QDAY PRN amlodipine 5 mg tablet 5 mg PO DAILY rosuvastatin 10 mg tablet 10 mg PO QPM metoprolol succinate 100 mg tablet extended release 24 hr 100 mg PO DAILY metoprolol succinate 50 mg tablet extended release 24 hr PO DAILY omeprazole 20 mg capsule,delayed release(DR/EC) 20 mg PO DAILY Eliquis 5 mg Tablet 5 mg PO BID Qty: 60 0RF colchicine 0.6 mg tablet 0.6 mg PO BID PRNQty: 60 0RF Rx Instructions: as needed for arthritis pain prednisone 5 mg tablet 5 mg PO DAILY mirabegron [Myrbetriq] 50 mg tablet extended release 24 hr 50 mg PO DAILY fluticasone propionate [24 Hour Allergy Relief] 50 mcg/actuation spray,suspension 2 spray intranasal DAILY PRN Rx Instructions: administer into each nostril melatonin 5 mg tablet 10 mg PO HS PRN (Reason: sleep) metoprolol tartrate 25 mg tablet 25 mg PO DAILY PRN Rx Instructions: TAKE ONCE NEEDED FOR HR > 110 AND PALPITATIONS acetaminophen 325 mg tablet 650 mg PO BID PRN (DME) [facility] Cold Therapy System See Rx Instructions .Route .MEDSUPPLY Qty: 1 0RF Rx Instructions: Use as directed per Dr. Lomas post op for Right Total Hip Arthroplasty Use 20 minutes 3 times per day and as needed for pain/swelling Take 1 hour breaks between uses Inspect skin 4 times per day Use for 60 days post op Follow Up/Referrals: Joslyn Turcios MD [Primary Care Provider, Family Practice] Stand Alone Forms: MyHealth Info Instructions
[2025-04-03 17:47] LABS: Hematocrit* 46.0 % (33.0-51.0); Hemoglobin* 15.2 gm/dL (12.0-16.0); Immature Granulocytes Abs Auto 0.00 K/uL (0.00-0.30); Immature Granulocytes Pct Auto 0.0 %; Lymphocytes Absolute Auto 2.37 K/uL (0.90-2.90); Mean Corpuscular HGB Conc 33 gm/dL (32-36); Mean Corpuscular Hemoglobin 31 pg (26-34); Mean Corpuscular Volume 95 fL (80-100); RDW Coefficient of Variation % 12.5 % (11.5-15.5); Red Blood Count* 4.86 m/uL (4.00-5.20); Slide Review Reflex No; White Blood Count* 6.88 K/uL (4.50-11.00)
[2025-04-03 17:53] LABS: Troponin, Point-of-Care* 0.00 ng/ml (0.01-0.04)
[2025-04-03 18:00] LABS: Chloride* 106 mmol/L (96-114)
[2025-04-03 18:01] LABS: Potassium* 4.9 mmol/L (3.6-5.1); Sodium* 140 mmol/L (135-149)
[2025-04-03 18:03] LABS: Blood Urea Nitrogen* 26 mg/dL (7-30); Creatinine* 1.0 mg/dL (0.5-1.5); Est. Creatinine Clearance* 38.44; Estimated Glomerular Filt Rate 59 ml/min
[2025-04-03 18:04] LABS: Anion Gap 8 mEq/L (7-15); Calcium* 9.9 mg/dL (8.4-10.6); Carbon Dioxide* 26 mmol/L (20-32); Glucose* 100 mg/dL (60-115)
[2025-04-03 19:01] VITALS: BP 143/83; PULSE 67; RESP 18; TEMP 36.9; O2SAT 95
== END 2025-04-03 19:03 | disposition home or self-care (01) ==
PROVIDERS: Emergency Provider Student in an Organized Health Care Education/Training Program; PCP Family Medicine
DX: I48.0 Paroxysmal atrial fibrillation (principal)
CPT/HCPCS: 36415; 80048; 83735; 84484; 85025; 93005; 99284